=== PATIENT | female | born 1980 | race Two or more races ===

== ENCOUNTER 2023-08-07 08:36 | Outpatient (REF) | payer OTHER, SELFPAY ==
--- NOTE | 2023-08-07 08:42 | EMG_ITS ---
Chief complaint: History of lymphoma and chemotherapy, diabetes, bilateral hand pain and numbness Reason for referral: Evaluate for neuropathy versus Carpal Tunnel Syndrome Referred by: Vincenzo MENDOZA Procedure done: Bilateral upper extremities NCS/EMG Precautions and/or limitations: None The limb temperature was monitored continuously and remained between 32-36 degrees C during the performance of the NCS. Nerve Conduction Studies Anti Sensory Summary Table ?Stim Site NR Onset (ms) Norm Onset (ms) Peak (ms) Norm Peak (ms) O-P Amp (?V) Norm O-P Amp Site1 Site2 Delta-0 (ms) Dist (cm) Jose (m/s) Norm Jose (m/s) Left Median Anti Sensory (2nd Digit) Wrist ? 2.7 3.6 <3.6 40.1 >10 Wrist 2nd Digit 2.7 14.0 52 Right Median Anti Sensory (2nd Digit) Wrist ? 2.7 3.3 <3.6 38.0 >10 Wrist 2nd Digit 2.7 14.0 52 Right Radial Anti Sensory (Thumb) Forearm ? 1.6 2.0 <3.1 16.3 Forearm Thumb 1.6 0.0 Left Ulnar Anti Sensory (5th Digit) Wrist ? 2.6 3.4 <3.7 34.6 >15.0 Wrist 5th Digit 2.6 14.0 54 Right Ulnar Anti Sensory (5th Digit) Wrist ? 2.5 3.2 <3.7 13.6 >15.0 Wrist 5th Digit 2.5 14.0 56 Motor Summary Table ?Stim Site NR Onset (ms) Norm Onset (ms) O-P Amp (mV) Norm O-P Amp iAmp (mV) Amp (1st) (%) Site1 Site2 Delta-0 (ms) Dist (cm) Jose (m/s) Norm Jose (m/s) Left Median Motor (Abd Poll Brev) Wrist ? 3.8 <3.9 5.6 >4.5 6.9 100.0 Elbow Wrist 3.6 19.0 53 >45 Elbow ? 7.4 5.6 6.9 100.0 Right Median Motor (Abd Poll Brev) Wrist ? 3.7 <3.9 6.7 >4.5 8.1 100.0 Elbow Wrist 3.5 18.0 51 >45 Elbow ? 7.2 7.5 9.1 111.9 Left Ulnar Motor (Abd Dig Minimi) Wrist ? 3.0 <3.0 10.2 >5 13.3 100.0 B Elbow Wrist 2.6 15.0 58 >45 B Elbow ? 5.6 9.9 12.8 97.1 A Elbow B Elbow 1.5 10.0 67 >45 A Elbow ? 7.1 9.7 12.5 95.1 Right Ulnar Motor (Abd Dig Minimi) Wrist ? 3.0 <3.0 10.6 >5 12.0 100.0 B Elbow Wrist 2.6 16.0 62 >45 B Elbow ? 5.6 9.9 11.2 93.4 A Elbow B Elbow 1.3 10.0 77 >45 A Elbow ? 6.9 9.5 10.8 89.6 EMG ?Side Muscle Nerve Root Ins Act Fibs Psw Amp Dur Poly Recrt Int Pat Comment Right 1stDorInt Ulnar C8-T1 Nml Nml Nml Nml Nml 0 Nml Complete Right FlexCarRad Median C6-7 Nml Nml Nml Nml Nml 0 Nml Complete Right Biceps Musculocut C5-6 Nml Nml Nml Nml Nml 0 Nml Complete Right Triceps Radial C6-7-8 Nml Nml Nml Nml Nml 0 Nml Complete Right Deltoid Axillary C5-6 Nml Nml Nml Nml Nml 0 Nml Complete Left 1stDorInt Ulnar C8-T1 Nml Nml Nml Nml Nml 0 Nml Complete Left FlexCarRad Median C6-7 Nml Nml Nml Nml Nml 0 Nml Complete Left Biceps Musculocut C5-6 Nml Nml Nml Nml Nml 0 Nml Complete Left Triceps Radial C6-7-8 Nml Nml Nml Nml Nml 0 Nml Complete Left Deltoid Axillary C5-6 Nml Nml Nml Nml Nml 0 Nml Complete FINDINGS: All motor and sensory nerves tested showed normal latencies, amplitudes and conduction velocities. Concentric needle EMG was performed in selected muscles of the bilateral upper extremities. Study did not reveal signs of electric abnormalities as shown in the table below. IMPRESSION: 1. This is a normal study. 2. There is no electrodiagnostic evidence for median neuropathy, ulnar neuropathy, brachial plexopathy, or cervical radiculopathy. Thank you for your kind referral. Laureen Thao MD, ALEJANDRO Board Certified, [place] [employer] and [employer] (ABPMR) Board Certified, [place] Board [employer] Electrodiagnostic Medicine (ABEM) CODIN [id number] x2 MTDD
== END 2023-08-07 08:37 | disposition home or self-care (01) ==
LOC: HO.NEURO 08:36
PROVIDERS: PCP Internal Medicine Endocrinology, Diabetes & Metabolism; Visit Provider Physician Assistant
DX: G56.03 Carpal tunnel syndrome, bilateral upper limbs (principal)
CPT/HCPCS: 95886; 95911

== ENCOUNTER → 2023-08-07 08:42 | Outpatient (BNV) | payer OTHER, SELFPAY | PROVIDERS: PCP Internal Medicine Endocrinology, Diabetes & Metabolism; Visit Provider Physical Medicine & Rehabilitation | DX: M79.641 Pain in right hand (principal); M79.642 Pain in left hand; R20.0 Anesthesia of skin | CPT/HCPCS: 95886; 95911 ==

== ENCOUNTER 2023-11-06 08:50 | Outpatient (AMB) | payer OTHER, SELFPAY ==
--- NOTE | 2023-11-06 08:53 | MHC.OFFVIS ---
Intake Vital Signs 11/06/23 09:07 Height 5 ft 1 in Weight 169 lb 2 oz BMI 32.0 BP 118/84 Blood Pressure Location Lt brachial Position Sitting Respiration 16 Pulse 73 Pulse Source Pulse Oximeter Pulse Oximetry (%) 99 Oxygen Delivery Method Room Air Intake Visit Reasons: Back, Arthritis Pain - Confirmed Allergies No Known Allergies Allergy (Verified 11/06/23 09:04) HPI HPI Comments History of Present Illness Details Igor is a very pleasant 43-year-old female who presents the office today for evaluation management of her chronic diffuse all-over pain. Patient reports the pain started after she underwent chemotherapy to treat Hodgkin's lymphoma in 2019. Patient complains of pain ?from neck to ankles?. She states her worst pain is her right neck/shoulder and right lower back. Today would like to focus on lower back pain. Patient endorses pain to right lower back can worse with movement and tender to palpation. Endorses muscle spasm. Denies radiation of the pain down the extremities. Patient reports that she has a recent EMG and lumbar MRI at [facility], releases signed for record request. Patient completed physical therapy, she continues doing home exercise program as instructed on discharge from PT. She has a PYROGLAZER at home that helps her with the home exercise. Patient has exhausted medication attempts including muscle relaxers, gabapentin, Tylenol and prescription opioids. She is not able to take nonsteroidal anti-inflammatory medications due to previous gastric ulcer. Pain today is rated as a 4/10, aching, stabbing, pins and needles. Denies red flag symptoms. In terms of muscle damage condition is described as aching, spasming, hot, burning, shooting, dull, tiring, cramping, squeezing, numb, throbbing, stabbing, sharp, tingling, pins and needles Pain is negatively impacting patient's enjoyment of life, general activity, mood, normal work, recreational activities, relationships with people, sleep and walking. She has imaging coming up November 16 for her left breast, recently found a lump. She also has an upcoming echo and stress test in November as she has been having fluttering in her chest. She will be seeing rheumatology in [place] in the next couple of weeks, she saw Rheumatology at [facility] but requested her PCP refer her elsewhere. [facility] Medical History GERD (gastroesophageal reflux disease) Obstructive sleep apnea (adult) (pediatric) Lichen simplex chronicus Asthma Polyp of gallbladder Hyperlipidemia, unspecified Functional dyspepsia Hodgkin lymphoma Type 2 diabetes mellitus without complications Abnormal chest x-ray Vitamin D deficiency MRSA carrier Cervical disc herniation Vulvar itching Anxiety and depression Dysuria Low libido Overweight (BMI 25.0-29.9) Iron (Fe) deficiency anemia Surgical History Bariatric surgery status Review of Systems Const All systems reviewed & are unremarkable except as noted in HPI and below Physical Exam Vital Signs: Last Vital Signs Pulse 73 11/06/23 09:07 Resp 16 11/06/23 09:07 BP 118/84 11/06/23 09:07 Pulse Ox 99 11/06/23 09:07 Oxygen Delivery Method Room Air 11/06/23 09:07 BMI result Body Mass Index 32.0 General: awake, alert, oriented. Answers questions appropriately. Fully engaged in examination. Skin: warm, dry, intact HEENT: Normocephalic. Hearing intact. Cardiac: External chest normal in appearance. Respiratory: No cough, audible wheezing or stridor. Abdomen: without gross distension. MS: No obvious swelling or deformities. Able to transition from sit to stand unassisted. Ambulates with bilaterally normal heel strike and toe off SLR negative bilateral BLE strength 5/5 Facet loading positive on the right Tender to palpation midline lumbar vertebrae and lumbar paraspinal muscles Nontender over PSIS bilaterally Neurological: Oriented to person, place, time and situation. Thought process intact. No gait abnormalities appreciated. Psychiatric: Appropriate mood and affect. Good judgment and insight. Assessment & Plan Assessment & Plan (1) Chronic pain after cancer treatment: Code(s): G89.3 - Neoplasm related pain (acute) (chronic) (2) Lumbar spondylosis: Code(s): M47.816 - Spondylosis without myelopathy or radiculopathy, lumbar region (3) Cervical spondylosis: Code(s): M47.812 - Spondylosis without myelopathy or radiculopathy, cervical region Plan Patient presented to the office today for evaluation management of her diffuse all-over chronic pain post chemotherapy for cancer treatment. Patient has exhausted conservative therapy including PT, home exercise program, [id number] medications, muscle relaxers, oxycodone and gabapentin. Discontinue methocarbamol. Start tizanidine 2 mg p.o. 3 times daily, patient advised to cautions for use. Discussed options for treatment including diagnostic interventional testing, therapeutic steroid injections, peripheral nerve stimulation with Sprint, RFA and more permanent neuromodulation. Informational pamphlets provided. Schedule for diagnostic right L3-L4 dorsal ramus L5 MBBs with local anesthetic. Discussed Sprint versus RFA if patient gets good relief with diagnostic injections. Pamphlet for Nevro spinal cord stimulator also given to patient for review. All questions and concerns have been answered and patient agrees with the plan. Follow up after injections and sooner if needed. Medications: New tizanidine discontinue methocarbamol. Do not take with other muscle relaxants. No driving or alcohol use while taking this medication. 2 mg PO TID PRN 90 tabs 0RF muscle spasticity Coding Level of Care Code New Pt Level 4 (94314) Diagnoses Chronic pain after cancer treatment G89.3 Lumbar spondylosis M47.816 Cervical spondylosis M47.812
[2023-11-06 09:07] VITALS: BP 118/84; PULSE 73; RESP 16; O2SAT 99; BMI 32.0
== END 2023-11-06 09:52 | disposition home or self-care (01) ==
PROVIDERS: PCP Internal Medicine Endocrinology, Diabetes & Metabolism; Visit Provider Registered Nurse Emergency
DX: G89.3 Neoplasm related pain (acute) (chronic) (principal); M47.816 Spondylosis without myelopathy or radiculopathy, lumbar region; M47.812 Spondylosis without myelopathy or radiculopathy, cervical region
CPT/HCPCS: 99204

== ENCOUNTER → 2023-11-06 08:50 | Outpatient (BNVA) | payer OTHER, SELFPAY | PROVIDERS: PCP Internal Medicine Endocrinology, Diabetes & Metabolism; Visit Provider Registered Nurse Emergency | DX: M47.816 Spondylosis without myelopathy or radiculopathy, lumbar region (principal); M47.812 Spondylosis without myelopathy or radiculopathy, cervical region; G89.3 Neoplasm related pain (acute) (chronic) | CPT/HCPCS: 99202 ==

== ENCOUNTER 2023-12-22 06:44 | Outpatient (REF) | payer OTHER, SELFPAY ==
--- NOTE | ~2023-12-22 | FL_ITS ---
EXAMINATION: XR FLUOROSCOPY WITH IMAGES CLINICAL INFORMATION: Lumbar spondylosis, without myelopathy or radiculopathy. COMPARISON: None available. TECHNIQUE: Fluoroscopy Supervised By: Dr. Lisette López. Fluoroscopy Time: 0.3 minutes. Cumulative Dose: 4.19 mGy. DAP: 0.0729 mGym2. Images: 3. FINDINGS: The submitted images show injection needles and injected contrast in the vicinity of the right L3-L4, L4-L5 and L5-S1 neural foramina. FL/FL guidance in treatment room IMPRESSION: Intraoperative fluoroscopic guidance is provided during lumbar spine pain management procedure. Please see the patient's Operative Report for for full procedural details.
== END 2023-12-22 06:45 | disposition home or self-care (01) ==
LOC: CF 06:44
PROVIDERS: Visit Provider Anesthesiology
DX: M47.816 Spondylosis without myelopathy or radiculopathy, lumbar region (principal); M47.812 Spondylosis without myelopathy or radiculopathy, cervical region; G89.3 Neoplasm related pain (acute) (chronic)
CPT/HCPCS: 64493; 64494; J2795; Q9967

== ENCOUNTER 2023-12-22 14:33 | Outpatient (AMB) | payer OTHER, SELFPAY ==
[2023-12-22 14:40] VITALS: BP 126/78; BP 130/70; PULSE 66; PULSE 76; RESP 16; O2SAT 100; BMI 32.0
--- NOTE | 2023-12-22 14:40 | A.OFFVIS_ITS ---
Intake Vital Signs 12/22/23 14:40 12/22/23 14:40 Height 5 ft 1 in 5 ft 1 in Weight 169 lb 2 oz 169 lb 2 oz BMI 32.0 32.0 BP 126/78 130/70 Blood Pressure Location Lt brachial Lt brachial Position Sitting Sitting Respiration 16 16 Pulse 76 66 Pulse Source Pulse Oximeter Pulse Oximeter Pulse Oximetry (%) 100 100 Oxygen Delivery Method Room Air Room Air Comment pre-op post-op Intake Visit Reasons: RIGHT DIAGNOSTIC L3, L4, DRL5 MBB Allergies No Known Allergies Allergy (Verified 12/22/23 14:41) [facility] Medical History GERD (gastroesophageal reflux disease) Obstructive sleep apnea (adult) (pediatric) Lichen simplex chronicus Asthma Polyp of gallbladder Hyperlipidemia, unspecified Functional dyspepsia Hodgkin lymphoma Type 2 diabetes mellitus without complications Abnormal chest x-ray Vitamin D deficiency MRSA carrier Cervical disc herniation Vulvar itching Anxiety and depression Dysuria Low libido Overweight (BMI 25.0-29.9) Iron (Fe) deficiency anemia Surgical History Bariatric surgery status Physical Exam Vital Signs: Last Vital Signs Pulse 66 12/22/23 14:40 Resp 16 12/22/23 14:40 BP 130/70 12/22/23 14:40 Pulse Ox 100 12/22/23 14:40 Oxygen Delivery Method Room Air 12/22/23 14:40 BMI result Body Mass Index 32.0 Assessment & Plan Assessment & Plan (1) Chronic pain after cancer treatment: Code(s): G89.3 - Neoplasm related pain (acute) (chronic) (2) Lumbar spondylosis: Code(s): M47.816 - Spondylosis without myelopathy or radiculopathy, lumbar region (3) Cervical spondylosis: Code(s): M47.812 - Spondylosis without myelopathy or radiculopathy, cervical region Plan: Diagnostic medial branch block L3,L4 dorsal ramus L5 on the right? ? ?Informed consent was explained to the patient. All questions were explained and? answered.? The patient was taken inside the operating room where she was positioned prone on the operating table. Time-out was performed delineating correct site, side, the nature of the procedure, patient's allergy, . All operating room staff was participating in OR time-out procedure. ? ? The lower back was prepped with ChloraPrep and draped with sterile towels.? C- arm was brought over the operating field and sq picture of L4-, L5 vertebra and S1 AREA were delineated on the screen.? Point of interest were delineated as confluence of superior articular process of L4 and L5 vertebra on the right with corresponding transverse processes as well as confluence of the sacral alae on the right with superior articular process of S1.? The projection of the point of interest to the skin were injected with the small amount of local anesthetic lidocaine 2% 1-1.5 cc.? After that 22 gauge 3.5 inch spinal needle was driven sequentially to the points of interest in tunnel vision fashion. After needles gently contacted the bone at the point of interests the needle was injected with small amount of the contrast.? The injection of the contrast did not demonstrate any intravascular or intrathecal spread of the contrast.? After that injection of the? ropivacaine 0.5%-1cc was performed at each needle location.??after that the needles were removed and Bandaids were applied. ? Upon completion of the injections? needle was? removed and sterile Band-Aids were applied.? The patient tolerated procedure very well. Plan Patient presented to the office today for evaluation management of her diffuse all-over chronic pain post chemotherapy for cancer treatment. Patient has exhausted conservative therapy including PT, home exercise program, nmnq-yxn-eoxxldq medications, muscle relaxers, oxycodone and gabapentin. Discontinue methocarbamol. Start tizanidine 2 mg p.o. 3 times daily, patient advised to cautions for use. Discussed options for treatment including diagnostic interventional testing, therapeutic steroid injections, peripheral nerve stimulation with Sprint, RFA and more permanent neuromodulation. Informational pamphlets provided. Schedule for diagnostic right L3-L4 dorsal ramus L5 MBBs with local anesthetic. Discussed Sprint versus RFA if patient gets good relief with diagnostic injections. Pamphlet for Nevro spinal cord stimulator also given to patient for review. All questions and concerns have been answered and patient agrees with the plan. Follow up after injections and sooner if needed. Orders: Orders FL guidance in treatment room Today M47.816 - Spondylosis without myelopathy or radiculopathy, lumbar region Coding Level of Care Code Procedure Only Diagnoses Chronic pain after cancer treatment G89.3 Lumbar spondylosis M47.816 Cervical spondylosis M47.812
== END 2023-12-22 15:09 | disposition home or self-care (01) ==
LOC: HO.PMCPRC 14:33
PROVIDERS: PCP Internal Medicine Endocrinology, Diabetes & Metabolism; Visit Provider Anesthesiology
DX: M47.816 Spondylosis without myelopathy or radiculopathy, lumbar region (principal)
CPT/HCPCS: 64493; 64494

== ENCOUNTER 2023-12-25 11:02 | Outpatient (AMB) | payer OTHER, SELFPAY ==
--- NOTE | 2023-12-25 11:16 | A.OFFVIS_ITS ---
Intake Vital Signs 12/25/23 11:17 Height 5 ft 1 in Weight 171 lb 8 oz BMI 32.4 BP 142/70 H Blood Pressure Location Lt brachial Position Sitting Respiration 18 Pulse 74 Pulse Source Pulse Oximeter Pulse Oximetry (%) 97 Oxygen Delivery Method Room Air Intake Visit Reasons: RIGHT DIAGNOSTIC L3, L4, DRL5 MBB Allergies No Known Allergies Allergy (Verified 12/25/23 11:18) HPI HPI Comments History of Present Illness Details Patient presents back to the office today for follow-up, status post right diagnostic L3-L4 DR L5 MBB with local anesthetic. She reports approximately 70% pain relief after the injection, with improvement in functional mobility. She states she is able to do housework at home that normally she would not be able to do including washing dishes. Since the procedure she reports worsening of her left sided lower back pain. She would like to attempt diagnostic injections for that side and hopefully proceed with bilateral sprint PNS She has been taking the tizanidine with good effect, she would like to continue on this medication Intake visit: Igor is a very pleasant 43-year-old female who presents the office today for evaluation management of her chronic diffuse all-over pain. Patient reports the pain started after she underwent chemotherapy to treat Hodgkin's lymphoma in 2019. Patient complains of pain ?from neck to ankles?. She states her worst pain is her right neck/shoulder and right lower back. Today would like to focus on lower back pain. Patient endorses pain to right lower back can worse with movement and tender to palpation. Endorses muscle spasm. Denies radiation of the pain down the extremities. Patient reports that she has a recent EMG and lumbar MRI at [facility] signed for record request. Patient completed physical therapy, she continues doing home exercise program as instructed on discharge from PT. She has a MEAT STRINGER at home that helps her with the home exercise. Patient has exhausted medication attempts including muscle relaxers, gabapentin, Tylenol and prescription opioids. She is not able to take nonsteroidal anti- inflammatory medications due to previous gastric ulcer. Pain today is rated as a 4/10, aching, stabbing, pins and needles. Denies red flag symptoms. In terms of muscle damage condition is described as aching, spasming, hot, burning, shooting, dull, tiring, cramping, squeezing, numb, throbbing, stabbing, sharp, tingling, pins and needles Pain is negatively impacting patient's enjoyment of life, general activity, mood, normal work, recreational activities, relationships with people, sleep and walking. She has imaging coming up November 16 for her left breast, recently found a lump. She also has an upcoming echo and stress test in November as she has been having fluttering in her chest. She will be seeing rheumatology in [place] in the next couple of weeks, she saw Rheumatology at [place] but requested her PCP refer her elsewhere. [facility] Medical History GERD (gastroesophageal reflux disease) Obstructive sleep apnea (adult) (pediatric) Lichen simplex chronicus Asthma Polyp of gallbladder Hyperlipidemia, unspecified Functional dyspepsia Hodgkin lymphoma Type 2 diabetes mellitus without complications Abnormal chest x-ray Vitamin D deficiency MRSA carrier Cervical disc herniation Vulvar itching Anxiety and depression Dysuria Low libido Overweight (BMI 25.0-29.9) Iron (Fe) deficiency anemia Surgical History Bariatric surgery status Review of Systems Const All systems reviewed & are unremarkable except as noted in HPI and below Physical Exam Vital Signs: Last Vital Signs Pulse 74 12/25/23 11:17 Resp 18 12/25/23 11:17 BP 142/70 H 12/25/23 11:17 Pulse Ox 97 12/25/23 11:17 Oxygen Delivery Method Room Air 12/25/23 11:17 BMI result Body Mass Index 32.4 General: awake, alert, oriented. Answers questions appropriately. Fully engaged in examination. Skin: warm, dry, intact HEENT: Normocephalic. Hearing intact. Cardiac: External chest normal in appearance. Respiratory: No cough, audible wheezing or stridor. Abdomen: without gross distension. MS: No obvious swelling or deformities. Able to transition from sit to stand unassisted. Ambulates with bilaterally normal heel strike and toe off SLR negative bilateral BLE strength 5/5 Tender to palpation midline lumbar vertebrae and lumbar paraspinal muscles Neurological: Oriented to person, place, time and situation. Thought process intact. No gait abnormalities appreciated. Psychiatric: Appropriate mood and affect. Good judgment and insight. Assessment & Plan Assessment & Plan (1) Chronic pain after cancer treatment: Code(s): G89.3 - Neoplasm related pain (acute) (chronic) (2) Lumbar spondylosis: Code(s): M47.816 - Spondylosis without myelopathy or radiculopathy, lumbar region (3) Cervical spondylosis: Code(s): M47.812 - Spondylosis without myelopathy or radiculopathy, cervical region Plan Patient presented to the office today for follow-up status post right L3-L4 DR L5 MBBs Patient reports 70% pain relief with improvement in functional mobility. She is reporting that the pain in her left lower back is more noticeable since she had the injections on the right side. Patient has exhausted conservative therapy including PT, home exercise program, cpfr-dyc-ayrulck medications, muscle relaxers, oxycodone and gabapentin. Continue with Tizanidine 2 mg p.o. 3 times daily, patient advised to cautions for use. Discussed options for treatment including diagnostic interventional testing, therapeutic steroid injections, peripheral nerve stimulation with Sprint, RFA and more permanent neuromodulation. Informational pamphlets provided. Schedule for diagnostic left L3-L4 dorsal ramus L5 MBBs with local anesthetic. Plan for bilateral Sprint if patient report good relief with diagnostic injections. All questions and concerns have been answered and patient agrees with the plan. Follow up after injections and sooner if needed. Medications: Changed From tizanidine discontinue methocarbamol. Do not take with other muscle relaxants. No driving or alcohol use while taking this medication. 2 mg PO TID PRN 90 tabs 8RF muscle spasticity To tizanidine Do not take with other muscle relaxants. No driving or alcohol use while taking this medication. 2 mg PO TID PRN 90 tabs 8RF muscle spasticity Coding Level of Care Code Est Pt Level 4 (14407) Diagnoses Chronic pain after cancer treatment G89.3 Lumbar spondylosis M47.816 Cervical spondylosis M47.812
[2023-12-25 11:17] VITALS: BP 142/70; PULSE 74; RESP 18; O2SAT 97; BMI 32.4
== END 2023-12-25 11:22 | disposition home or self-care (01) ==
PROVIDERS: PCP Internal Medicine Endocrinology, Diabetes & Metabolism; Visit Provider Registered Nurse Emergency
DX: G89.3 Neoplasm related pain (acute) (chronic) (principal); M47.816 Spondylosis without myelopathy or radiculopathy, lumbar region; M47.812 Spondylosis without myelopathy or radiculopathy, cervical region
CPT/HCPCS: 99214

== ENCOUNTER → 2023-12-25 11:02 | Outpatient (BNVA) | payer OTHER, SELFPAY | PROVIDERS: PCP Internal Medicine Endocrinology, Diabetes & Metabolism; Visit Provider Registered Nurse Emergency | DX: G89.3 Neoplasm related pain (acute) (chronic) (principal); M47.812 Spondylosis without myelopathy or radiculopathy, cervical region; M47.816 Spondylosis without myelopathy or radiculopathy, lumbar region | CPT/HCPCS: 99212 ==

== ENCOUNTER 2024-07-13 09:29 | Outpatient (AMB) | payer OTHER, SELFPAY ==
[2024-07-13 09:37] VITALS: BP 134/69; PULSE 75; O2SAT 99; BMI 33.8
--- NOTE | 2024-07-13 09:37 | A.OFFVIS_ITS ---
Vital Signs 07/13/24 09:37 Height 5 ft 1 in Weight 179 lb BMI 33.8 BP 134/69 Blood Pressure Location Lt brachial Position Sitting Pulse 75 Pulse Source Pulse Oximeter Pulse Oximetry (%) 99 Oxygen Delivery Method Room Air Intake Visit Reasons: Back Pain Allergies No Known Allergies Allergy (Verified 07/13/24 09:38) HPI Comments Details: Patient presents back to the office today for follow-up bilateral lower back pain At last visit she endorse 70% pain relief after right-sided medial branch blocks, booking order for left side was placed but as of today no approval has been received from the insurance company. She was then lost to follow-up. Now having bilateral lower back pain, rated today as 4/10 She has been taking oxycodone, gabapentin, Tylenol, duloxetine, tizanidine and using lidocaine patches all without improvement of her pain. She completed physical therapy and continues with home exercise program but pain persists Prior: Patient presents back to the office today for follow-up, status post right diagnostic L3-L4 DR L5 MBB with local anesthetic. She reports approximately 70% pain relief after the injection, with improvement in functional mobility. She states she is able to do housework at home that normally she would not be able to do including washing dishes. Since the procedure she reports worsening of her left sided lower back pain. She would like to attempt diagnostic injections for that side and hopefully proceed with bilateral sprint PNS She has been taking the tizanidine with good effect, she would like to continue on this medication Intake visit: Igor is a very pleasant 43-year-old female who presents the office today for evaluation management of her chronic diffuse all-over pain. Patient reports the pain started after she underwent chemotherapy to treat Hodgkin's lymphoma in 2019. Patient complains of pain ?from neck to ankles?. She states her worst pain is her right neck/shoulder and right lower back. Today would like to focus on lower back pain. Patient endorses pain to right lower back can worse with movement and tender to palpation. Endorses muscle spasm. Denies radiation of the pain down the extremities. Patient reports that she has a recent EMG and lumbar MRI at [facility] signed for record request. Patient completed physical therapy, she continues doing home exercise program as instructed on discharge from PT. She has a [employer]EL[employer] at home that helps her with the home exercise. Patient has exhausted medication attempts including muscle relaxers, gabapentin, Tylenol and prescription opioids. She is not able to take nonsteroidal anti- inflammatory medications due to previous gastric ulcer. Pain today is rated as a 4/10, aching, stabbing, pins and needles. Denies red flag symptoms. In terms of muscle damage condition is described as aching, spasming, hot, burning, shooting, dull, tiring, cramping, squeezing, numb, throbbing, stabbing, sharp, tingling, pins and needles Pain is negatively impacting patient's enjoyment of life, general activity, mood, normal work, recreational activities, relationships with people, sleep and walking. She has imaging coming up November 16 for her left breast, recently found a lump. She also has an upcoming echo and stress test in November as she has been having fluttering in her chest. She will be seeing rheumatology in [place] in the next couple of weeks, she saw Rheumatology at [place] but requested her PCP refer her elsewhere. [facility] Medical History GERD (gastroesophageal reflux disease) Obstructive sleep apnea (adult) (pediatric) Lichen simplex chronicus Asthma Polyp of gallbladder Hyperlipidemia, unspecified Functional dyspepsia Hodgkin lymphoma Type 2 diabetes mellitus without complications Abnormal chest x-ray Vitamin D deficiency MRSA carrier Cervical disc herniation Vulvar itching Anxiety and depression Dysuria Low libido Overweight (BMI 25.0-29.9) Iron (Fe) deficiency anemia Surgical History Bariatric surgery status Review of Systems Const All systems reviewed & are unremarkable except as noted in HPI and below Physical Exam Vital Signs: Last Vital Signs Pulse 75 07/13/24 09:37 BP 134/69 07/13/24 09:37 Pulse Ox 99 07/13/24 09:37 Oxygen Delivery Method Room Air 07/13/24 09:37 BMI result Body Mass Index 33.8 General: awake, alert, oriented. Answers questions appropriately. Fully engaged in examination. Skin: warm, dry, intact HEENT: Normocephalic. Hearing intact. Cardiac: External chest normal in appearance. Respiratory: No cough, audible wheezing or stridor. Abdomen: without gross distension. MS: No obvious swelling or deformities. Able to transition from sit to stand unassisted. Ambulates with bilaterally normal heel strike and toe off SLR negative bilateral BLE strength 5/5 Tender to palpation midline lumbar vertebrae and lumbar paraspinal muscles Facet loading positive Neurological: Oriented to person, place, time and situation. Thought process intact. No gait abnormalities appreciated. Psychiatric: Appropriate mood and affect. Good judgment and insight. Assessment & Plan Assessment & Plan (1) Chronic pain after cancer treatment: Code(s): G89.3 - Neoplasm related pain (acute) (chronic) Category: Medical (2) Lumbar spondylosis: Code(s): M47.816 - Spondylosis without myelopathy or radiculopathy, lumbar region Category: Medical (3) Cervical spondylosis: Code(s): M47.812 - Spondylosis without myelopathy or radiculopathy, cervical region Category: Medical Plan Patient presented to the office today for follow-up bilateral lower back pain History, physical exam and provocative testing consistent with lumbar spondylosis Patient has exhausted conservative therapy including PT, home exercise program, [id number] medications, muscle relaxers, oxycodone and gabapentin. Continue with Tizanidine 2 mg p.o. 3 times daily, patient advised to cautions for use. Discussed options for treatment including diagnostic interventional testing, therapeutic steroid injections, peripheral nerve stimulation with Sprint, RFA a nd more permanent neuromodulation. Informational pamphlets provided. Schedule for bilateral diagnostic L3-L4 dorsal ramus L5 MBBs with local anesthetic. Plan for bilateral Sprint if patient report good relief with diagnostic injections. All questions and concerns have been answered and patient agrees with the plan. Follow up after injections and sooner if needed. Coding Level of Care Code Est Pt Level 3 (55341) Complex EM visit Add On G2211 Diagnoses Chronic pain after cancer treatment G89.3 Lumbar spondylosis M47.816 Cervical spondylosis M47.812
== END 2024-07-13 09:56 | disposition home or self-care (01) ==
PROVIDERS: PCP Internal Medicine Endocrinology, Diabetes & Metabolism; Visit Provider Registered Nurse Emergency
DX: G89.3 Neoplasm related pain (acute) (chronic) (principal); M47.816 Spondylosis without myelopathy or radiculopathy, lumbar region; M47.812 Spondylosis without myelopathy or radiculopathy, cervical region
CPT/HCPCS: 99213; G2211

== ENCOUNTER → 2024-07-13 09:29 | Outpatient (BNVA) | payer OTHER, SELFPAY | PROVIDERS: PCP Internal Medicine Endocrinology, Diabetes & Metabolism; Visit Provider Registered Nurse Emergency | DX: M47.816 Spondylosis without myelopathy or radiculopathy, lumbar region (principal); M47.812 Spondylosis without myelopathy or radiculopathy, cervical region; G89.3 Neoplasm related pain (acute) (chronic); Z92.21 Personal history of antineoplastic chemotherapy; Z85.71 Personal history of Hodgkin lymphoma | CPT/HCPCS: 99212 ==

== ENCOUNTER 2024-11-01 06:08 | Outpatient (REF) | payer OTHER, SELFPAY ==
--- NOTE | ~2024-11-01 | FL_ITS ---
EXAMINATION: FL GUIDANCE ONLY HISTORY: M47.816 - Spondylosis without myelopathy or radiculopathy, lumbar region COMPARISON: None available. TECHNIQUE: Fluoroscopy time: 0.7. Cumulative Dose: 9.70 mGy. DAP: 0.156 uGy-m2 (microgray-meter squared). Images: 12. FINDINGS: Images demonstrate needles and contrast in the regions of the bilateral L3-4, L4-5, L5-S1 facet joints. FL/FL guidance in treatment room IMPRESSION: Fluoroscopy during procedure. Please see procedure report for additional information. Electronically signed by: Eugenio Carroll MD 11/02/2024 07:28 AM KEVIN
--- OUTSIDE RECORDS SUMMARY | 2024-11-01 06:10 | XMS_ITS | Referral Summary ---
Author Organization [facility] Address [address] [place] [address] Care Team Providers [employer] Software Architect Name Role Phone Fabio Moe Primary Care Provider [phone] Allergies No known active allergies Medications acetaminophen (TYLENOL) 500 mg tablet SMARTSI Tablet(s) By Mouth Every 6 Hours PRN Active albuterol sulfate 90 mcg/actuation aerosol powdr breath activated Inhale 2 puffs by mouth. Active benzonatate (TESSALON) 100 mg capsule SMARTSI Capsule(s) By Mouth 3 Times Daily PRN 4 Active cholecalciferol 25 mcg (1,000 unit) tablet SMARTSI Tablet(s) By Mouth Daily 4 Active ergocalciferol (VITAMIN D2) 1,250 mcg (50,000 unit) capsule SMARTSI Capsule(s) By Mouth Once a Week Active ferrous sulfate 325 mg (65 mg iron) tablet SMARTSI Tablet(s) By Mouth Twice Daily 4 Active fluconazole (DIFLUCAN) 150 mg tablet TAKE 1 TABLET BY MOUTH ONCE WEEKLY FOR 6 MONTHS 4 Active Advair Diskus 250-50 mcg/dose inhaler SMARTSI Puff(s) By Mouth Twice Daily 4 Active fluticasone propionate (FLONASE) 50 mcg/actuation nasal spray SMARTSI [place](s) Both Nares Daily Active gabapentin (NEURONTIN) 400 mg capsule SMARTSI Capsule(s) By Mouth 3 Times Daily Active lidocaine (LIDODERM) 5% patch SMARTSI Patch(s) Topical Daily 4 Active loratadine (CLARITIN) 10 mg tablet SMARTSI Tablet(s) By Mouth Daily 4 Active methocarbamoL (ROBAXIN) 500 mg tablet SMARTSI Tablet(s) By Mouth 3 Times Daily PRN 3 Active montelukast (SINGULAIR) 10 mg tablet Take 10 mg by mouth. Active nystatin-triamc inolone (MYCOLOG II) ointment SMARTSIG:Sparin gly Topical Daily PRN 3 Active omeprazole (PriLOSEC) 20 mg capsule SMARTSI Capsule(s) By Mouth Twice Daily 4 Active ondansetron (ZOFRAN) 4 mg tablet Take 4 mg by mouth every 6 hours as needed. 3 Active oxyCODONE IR (ROXICODONE) 5 mg tablet SMARTSI Tablet(s) By Mouth Twice Daily PRN 4 Active sertraline (ZOLOFT) 100 mg tablet SMARTSI Tablet(s) By Mouth Daily 4 Active tiZANidine (ZANAFLEX) 2 mg tablet PLEASE SEE ATTACHED FOR DETAILED DIRECTIONS 4 Active traZODone (DESYREL) 50 mg tablet SMARTSI-3 Tablet(s) By Mouth Every Night PRN 4 Active Active Problems Problem Noted Date Diagnosed Date Fibromyalgia 02/02/2024 Assessment & Plan (02/02/2024 1:24 PM EDT): Patient with diffuse body pain - endorses pain at shoulders, knees, lower back, elbows, ankles. Endorses pain both with and without activity. Denies discrete joint swelling. Endorses AM stiffness in shoulders and back but not in small joints. Reports pain worse with cold weather. Currently on oxycodone 5mg every day, meloxicam, gabapentin, sertraline. Has tried PT in the past and states that while it does help, will have return of pain. Reports onset of symptoms with chemotherapy for the Hodgkin's lymphoma. On exam, patient without synovitis however with b/l anterior shoulder joint TTP, b/l trapezius TTP, paraspinal TTP, and chest wall TTP. No bony abnormalities noted on exam. Patient's presentation not suggestive of inflammatory arthritis. Most notably, patient reports absolutely no change in pain level despite steroid therapy. Patient on prednisone for bronchitis and reports no difference in pain while on vs off prednisone vs tapering down. Presentation more c/w fibromyalgia. Of note, patient previously with PATRICK on CPAP however had stopped following sleeve gastrectomy. Given how PATRICK can affect pain pathways, advised patient to resume CPAP and see if improvement. Patient already on NSAIDs, gabapentin, SSRI which is what would be used for fibromyalgia. Could also be chemotherapy induced arthralgias which patient reports was previously suggested by her oncologist. At this time, no autoimmune/systemic inflammatory process contributing to patient's diffuse body pain. No further workup indicated. Advised to follow up with PCP. Trochanteric bursitis of both hips 02/02/2024 Assessment & Plan (02/02/2024 1:24 PM EDT): Patient with significant TTP at b/l greater trochanters. CHARLES/FADIR neg b/l. Discussed risks and benefits of steroid injections with patient. Patient agreeable to injection. Given patient's report of increased pain on L greater trochanter, injected with 60mg of depomedrol. Initially had discussed also injecting the R greater trochanter bursa but patient deferred. Patient tolerated procedure without issue. Social History Tobacco Use Types Packs/Day Years Used Date Smoking Tobacco: Never Passive Smoke Exposure: Never Smokeless Tobacco: Never Tobacco Cessation:Counseling Given: Not Answered Alcohol Use Standard Drinks/Week Comments Not Currently 0 (1 standard drink = 0.6 oz pur e alcohol) Comments Unknown Sex and Gender Information Value Date Recorded Sex Assigned at Female 09/24/2023 1:27 PM EST Legal Sex Female 1:23 PM EST Gender Identity Female 09/24/2023 1:27 PM EST Sexual Orientation Straight 12/10/2023 10 :55 AM EST Last Filed Vital Signs Vital Sign Reading Time Taken Comments Blood Pressure 132/84 02/02/2024 9:24 AM EDT Pulse 78 02/02/2024 9:24 AM EDT Temperature 37.1 ??C (98.8 ??F) 02/02/2024 9:24 AM ED T Respiratory Rate - - Oxygen Saturation - - Inhaled Oxygen Concentration - - Weight - - Height - - Body Mass Index - - Plan of Treatment Not on file Insurance [employer] Care Teams Net Software Architect Relationship Specialty Start Date End Date Fabio Moe PCP - General Internal Medicine 01/18/24
--- OUTSIDE RECORDS SUMMARY | 2024-11-01 06:10 | XMS_ITS | Clinical Summary ---
Author Organization [facility] Address [address] [place] [address] Care Team Providers Care Post Splitter Name Role Phone Fabio Moe Primary Care Provider [phone] Allergies No known active allergies Medications Medication Sig Dispensed Refills Start Date End Date Status albuterol sulfate 90 mcg/actuation aerosol powdr breath activated Inhale 2 puffs into the lungs continuous prn. Active ergocalciferol (VITAMIN D-2) 1,250 mcg (50,000 unit) capsule Take 1 capsule (50,000 Units total) by mouth once a week. 4 Active fluticasone furoate (ARNUITY ELLIPTA) 200 mcg/actuation blister with device inhaler Inhale 220 mcg into the lungs 2 (two) times a day. Active omeprazole (PRILOSEC) 20 mg tablet,delayed release (DR/EC) Take 20 mg by mouth daily. Active ondansetron (ZOFRAN) 4 mg tablet Take 1 tablet (4 mg total) by mouth every 6 hours as needed. 3 Active sertraline (ZOLOFT) 100 mg tablet TAKE 1 TABLET BY MOUTH EVERY DAY 3 Active montelukast (SINGULAIR) 10 mg tablet TAKE 1 TABLET BY MOUTH EVERYDAY AT BEDTIME 90 tablet 1 4 Active acetaminophen (TYLENOL) 500 mg tablet TAKE 1 TABLET (500 MG TOTAL) BY MOUTH EVERY 6 (SIX) HOURS NEEDED FOR PAIN. 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 Do not crush, chew, or split. Max Daily Amount: 30 mg 60 tablet 5 Active Advair HFA 230-21 mcg/actuation inhaler TAKE 1 PUFF BY MOUTH TWICE A DAY 36 each 1 5 Active oxyCODONE (ROXICODONE) 5 mg immediate release tabletIndication s:Intractable pain Take 1 tablet (5 mg total) by mouth every 8 (eight) hours if needed for severe pain. Max Daily Amount: 15 mg 90 tablet 5 Active fluticasone propionate (FLONASE) 50 mcg/actuation nasal spray Administer 2 sprays into each nostril 1 (one) time each day. 48 mL 1 5 Active fluticasone propionate (FLONASE) 50 mcg/actuation nasal spray spray/apply 2 sprays in each nostril continuous prn. 10/31/19 25 Discontinued gabapentin (NEURONTIN) 400 mg capsule TAKE 1 CAPSULE BY MOUTH THREE TIMES A DAY 4 10/10/19 25 Discontinued oxyCODONE (ROXICODONE) 5 mg immediate release tabletIndication s:Intractable pain Take 1 tablet (5 mg total) by mouth every 8 (eight) hours if needed for severe pain. Max Daily Amount: 15 mg 90 tablet 4 10/13/19 25 Discontinued(Reo rder) gabapentin (NEURONTIN) 400 mg capsule TAKE 1 CAPSULE BY MOUTH THREE TIMES A DAY 90 capsule 2 5 10/12/19 25 Discontinued Active Problems Problem Noted Date Diagnosed Date Trochanteric bursitis of both hips 02/02/2024 Overview (08/16/2024): Last Assessment & Plan: Patient with significant TTP at b/l greater trochanters. CHARLES/FADIR neg b/l. Discussed risks and benefits of steroid injections with patient. Patient agreeable to injection. Given patient's report of increased pain on L greater trochanter, injected with 60mg of depomedrol. Initially had discussed also injecting the R greater trochanter bursa but patient deferred. Patient tolerated procedure without issue. Fibromyalgia 02/02/2024 Mild ascending aorta dilation 12/28/2023 Mass of upper outer quadrant of left breast 10/06 Overview (05/18/2024): Last Assessment & Plan: Will obtain diagnostic imaging and refer to breast clinic if normal. Recurrent vaginitis 10/26/2023 Overview (08/16/2024): Last Assessment & Plan: Will treat with 6 mos weekly fluconazole. If not helpful, will consider using around time of usual menses as seems to be hormonally mediate. Intractable pain 09/01/2023 Palpitations 10/28/2022 TIA (transient ischemic attack) 10/28/2022 Overweight (BMI 25.0-29.9) 06/13/2022 Acute nonintractable headache 09/05/2021 Weight loss 09/05/2021 History of laparoscopic partial gastrectomy 11/2020 Anxiety and depression 11/22/2020 Neck pain 02/10/2020 Cervical disc disease 12/09/2019 Cervical disc herniation 12/09/2019 Overview (08/16/2024): Right, C6-C7, MRI 09/27/2020 Vitamin D deficiency 07/20/2019 Cellulitis 04/22/2019 Abnormal chest x-ray 03/03/2019 Overview (08/16/2024): 02/20 - recommended follow up chest CT Cough 03/02/2019 Acute non-recurrent frontal sinusitis 02/24/2019 Inguinal adenopathy 12/31/2018 MRSA carrier 12/31/2018 Abscess, gluteal, left 12/24/2018 Memory loss 12/16/2018 Other fatigue 12/16/2018 Other insomnia 12/16/2018 Anemia in neoplastic disease 10/27/2018 Iron deficiency anemia due to chronic blood loss 10/27/2018 Nausea 10/27/2018 Pain of upper abdomen 10/27/2018 Diabetes mellitus type 2, uncomplicated 10/25/19 19 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 Stage III disease, bone marrow testing negative for lymphoma. ersistent symptoms started in June 06 lymphadenopathy was noticed in August 2018, in the right axilla and right side of neck. Initial biopsy on 09/16/2018, of the right axillary lymph node showed polymorphous lymphoid cell population. She had excisional biopsy of the right axillary lymph node on 09/27/2018, That showed LYMPHOMA. Staging evaluation with CAT scan of chest showed right axillary, right supraclavicular, right mediastinal and hilar lymphadenopathy. PET CT scan showed stage III, non-bulky disease with disease in mediastinal area and retroperitoneum. Bone marrow biopsy, was negative for disease. Patient was started on ABVD regimen in November 06.after 4 treatments, she had a PET/CT scan, that showed excellent response, near complete resolution of disease, but there was a new left inguinal lymph node. This lymph node was tender and it improved with antibiotic therapy. Patient has had issues with recurrent pharyngitis, cough, hidradenitis, requiring several courses of antibiotics during therapy. She also has anemia, has not required transfusions. Patient will complete cycle #6 of treatment today A-B. LYMPH NODES, RIGHT AXILLA-EXCISION: - CLASSICAL HODGKIN LYMPHOMA. - NO FLOW IMMUNOPHENOTYPIC EVIDENCE OF A LYMPHOPROLIFERATIVE DISORDER. SEE COMMENT. COMMENT: This case was sent in consultation to Dr. Dexter Lind at [facility], [place], [place]. See end of report for his interpretation. MICROSCOPIC DESCRIPTION: Sections show lymph node conglomerates (up to 7.0 cm per gross description) with effaced architecture by a vaguely nodular process. The ann-marie capsule is thickened, and there is extranodal extension into fibroadipose tissue. The vague nodules consist of mostly small, slightly irregular lymphocytes. Surrounding the nodules is an extensive infiltrate of mixed histiocytes, large abnormal cells, and small lymphocytes. The large abnormal cells are numerous and have moderate to abundant amounts of pale eosinophilic cytoplasm, irregularly lobated nuclei, vesicular chromatin, and prominent nucleoli. Some are binucleated and some show mummification. One section shows a focus of tumor-type coagulative necrosis. IMMUNOHISTOCHEMISTRY: Immunohistochemistry shows that the large abnormal cells are positive for CD30, CD15, PAX5 (weak), fascin, and CD20. Although it is difficult to interpret due to dense background cellularity, they appear to be negative for CD45 (LCA) and CD3. CD68 highlights many background histiocytes. Ki-76 highlights most of the large abnormal cells, as well as a background of approximately 10% lymphocytes. Immunohistochemistry performed at [facility], [place], [place], shows that the large abnormal cells are positive for BOB1 and OCT2. IN-SITU HYBRIDIZATION: EBV-encoded RNA (SABRINA) MARION is positive in the large abnormal cells. Hodgkin lymphoma 10/20/2018 Overview (08/16/2024): Right lymph node excision, reported 10/18/2018, 6 months ABVD chemo 2D ECHO 02/08/19 EF 60-65% Gastroesophageal reflux disease with esophagitis 10/12/2018 Lymphadenopathy 10/12/2018 Night sweats 10/12/2018 Functional dyspepsia 06/01/2018 Hyperlipidemia 08/09/2017 Overview (08/16/2024): LDL 155, 08/08/2017 Gallbladder polyp 12/17/2015 Hepatomegaly 12/17/2015 Overview (08/16/2024): US 09/21/2018 Asthma 11/14/2013 Lichen simplex chronicus 12/09/2012 Overview (08/16/2024): Last Assessment & Plan: I encouraged her to treat with topical steroid nightly for two weeks, soak and seal with coconut oil, and follow [facility] guidelines. PATRICK (obstructive sleep apnea) 12/09/2011 Overview (08/16/2024): N/A Pulmo 06/17/2016 ResScan 04/02/2016 to 05/01/2016. CPAP@ 4-12/Average 7.9/Max 8.6. 70% compliant with using the machine for >4 hours/day. Average use is 5 hours a night with AHI 0. Resolved Problems Problem Noted Date Diagnosed Date Resolved Date Intractable pain 09/01/2023 09/19/2024 Iron deficiency anemia 12/10/202209/19 Palpitations 10/28/2022 09/19/2024 TIA (transient ischemic attack) 10/28/2022 09/19/2024 Dysuria 06/03/2021 09/19/2024 Overview (08/16/2024): Last Assessment & Plan: Will send urine culture and treat prn. Urinary frequency could also be due to recurrent DM 2. 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 (CMS/HCC) (Primary Dx); Iron deficiency anemia due to chronic blood loss; Anemia in neoplastic disease; Intractable pain; Neck pain; Fibromyalgia; PATRICK (obstructive sleep apnea) 09/19/2024 11:15 AM EST Office Visit Obstetrics and Gynecology - [address] [phone] Constance Canales CNM Vaginal discharge (Primary Dx); Vaginal odor; Vulvar itching; Urinary frequency 09/16/2024 Telephone Obstetrics and Gynecology - [address] [phone] Fahad Wright MD Vaginal Itching from Last 3 Months Immunizations Name Administration Dates Next Due H1N1 Inj Preservative Free 07/31/2009 HPV 9-valent (Gardisil) 9yo to less than 46yo 05/02/2021,12/26/2020,06/27/2020 Hepatitis B (Qcfxofg-N-Owacs , Recombivax HB-Adult) 19yo and older 05/24/2014,12/16/2007 Influenza trivalent, 0.5mL, preservative free (Fluarix; FluLaval; Fluzone) ages 6mo and older (Afluria) 3 years and older 08/03/2024,06/25/2021,08/05/2020,07/16 Influenza, Unspecified 07/07/2022,07/09/2021 MMR, measles mumps and rubel la Live (Priorix; M-M-R II) 12mo and older 05/27/2014 PPD Test 05/14/2016,06/13/2015 Pfizer SARS-CoV-2 COVID-19, mRNA, LNP-S, preservative free 07/09/2021,11/28/2020,11/07/2020 Pneumococcal polysaccharide 23 valent (Pneumovax 23) 2yo and older 11/14/2013 Td Tetanus diptheria (Tdvax) 7yo and older 07/26/2018 Tdap Tetanus diptheria acell ular pertussis (Boostrix; Adacel) 7yo and older 12/16/2007 Varicella live (Varivax) 12m o and older 05/27/2014 Surgical History Surgery Date Site/Laterality Comments TUBAL LIGATION PROCEDURE: HISTORICAL TUBAL LIGATION UPPER GASTROINTESTINAL ENDOSCOPY 12/31/17 Stephan PROCEDURE: ME UPPER GI ENDOSCOPY PERFORMED; COMMENT: erosions and erythema antrum and bulb; nl esophagus, but free flow of gastric contents. Active duodenitis with H. pylori; chronic gastritis with H. pylori OTHER SURGICAL HISTORY 11/2018 PROCEDURE: BONE MARROW BIOPSY; COMMENT: negative for disease in setting of Hodgkin Lymphoma OTHER SURGICAL HISTORY PROCEDURE: ME CHEMOTX ADMN PERTL CAVITY IMPLANTED PORT/CATH; COMMENT: Port A Cath ABDOMINAL SURGERY 02/2021 PROCEDURE: HISTORICAL ABDOMINAL SURGERY; COMMENT: sleeve gastrectomy dr. alfaro HYSTERECTOMY 12/17/2022 PROCEDURE: HISTORICAL VAGINAL HYSTERECTOMY W/O BSO; COMMENT: menorrhagia, adenomyosis- Eppsteiner Medical History Medical History Date Comments Abnormal chest x-ray 03/03/2019 DX:Abnormal chest x-ray; COMMENT: 02/20 - recommended follow up chest CT Acanthosis nigricans 12/09/2012 DX:Acanthos is nigricans Asthma 11/14/2013 DX:Asthma Diabetes mellitus type 2, uncomplicated (CMS/HCC) 10/25/2018 DX:Diabetes mellitus type 2, uncomplicated (HCC) Functional dyspepsia 06/01/2018 DX:Function al dyspepsia Gallbladder polyp 12/17/2015 DX:Gallbladder polyp GERD (gastroesophageal reflux disease) 04/25/2011 DX:GERD (gastroesophageal reflux disease) Hepatomegaly 12/17/2015 DX:Hepatomegaly; COMMENT: US 09/21/2018 Hodgkin lymphoma (CMS/HCC) 10/20/2018 DX:Ho dgkin lymphoma (HCC); COMMENT: Right lymph node excision, reported 10/18/2018, 6 months ABVD chemo 2D ECHO 02/08/19 EF 60-65% Hyperlipidemia 08/09/2017 DX:Hyperlipidemi a; COMMENT: LDL 155, 08/08/2017 Menorrhagia with regular cycle 09/13/2018 D X:Menorrhagia with regular cycle; COMMENT: Tried Mirena IUD with BTB and had this removed 10/2018 Benign EMB 11/04/18 FAHAD WRIGHT MD Morbid obesity with BMI of 4 5.0-49.9, adult (CMS/HCC) 12/09/2011 DX:Morbid obesity with BMI o f 45.0-49.9, adult (HCC) MRSA carrier 11/09/2019 DX:MRSA carrier PATRICK (obstructive sleep apnea) 12/09/2011 DX :PATRICK (obstructive sleep apnea); COMMENT: N/A Pulmo 06/17/2016 ResScan 04/02/2016 to 05/01/2016. CPAP@ 4-12/Average 7.9/Max 8.6. 70% compliant with using the machine for >4 hours/day. Average use is 5 hours a night with AHI 0. Port-A-Cath in place 11/09/2019 DX:Port-A-C ath in place Vitamin D deficiency 07/20/2019 DX:Vitamin D deficiency Family History Medical History Relation Name Comments No Known Problems Daughter x 2 health y daughters Stroke Father skin cancer Breast cancer Maternal Grandmother 70's CAD Other: HIV Mother AIDS No Known Problems Sister x 4 health y sisters No Known Problems Son x 3 health y sons Relation Name Status Comments Daughter Alive Father Alive Maternal Grandmother 70's Mother Sister Alive Son Alive Social History Tobacco Use Types Packs/Day Years Used Date Smoking Tobacco: Former Cigarettes 0.1 23.9 0 02/02/1994 - 01/03/2018 Smokeless Tobacco: Never Tobacco Cessation:Counseling Given: Not Answered Alcohol Use Standard Drinks/Week Comments No 0 (1 standard drink = 0.6 oz pur e alcohol) Housing Instability Answer Date Recorde d Are you worried that in the next 2 months you may not have stable housing? No 09/19/2024 Food Access & Nutrition Answer Date Rec orded Do you have access to a vari ety of food including fruits and vegetables? Yes 09/19/2024 Health Literacy Answer Date Recorded How often do you need to hav e someone help you when you read instructions, pamphlets, or other written material from your doctor or pharmacy? Never 09/19/2024 Caregiver: How often do you need to have someone help you when you read instructions, pamphlets, or other written material from your doctor or pharmacy? Not on file 09/19/2024 Financial Risk Answer Date Recorded How hard is it for you to pa y for the very basics like food, housing, medical care, and air conditioning / heating? Not very hard 09/19/2024 Transportation Answer Date Recorded Has the lack of transportati on kept you from meetings, work, or from getting things needed for daily living? No Has the lack of transportati on kept you from medical appointments or from getting medications? No 09/19/2024 Social Isolation Answer Date Recorded How often do you feel lonely or isolated from th ose around you? Never 09/19/2024 Food Risk Answer Date Recorded Within the past 12 months we worried whether our food would run out before we got money to buy more. Never true 09/19/2024 Within the past 12 months th e food we bought just didn't last and we didn't have money to get more. Never true 09/19/2024 Dependent Care Answer Date Recorded Do you need help finding or paying for care for your loved ones. For example, child development consultant or elderly care for an older adult? No 09/19/2024 Education Answer Date Recorded Do you think completing more education or training, like finishing a GED, going to college, or learning a trade, would be helpful for you? Yes 09/19/2024 Employment and Income Answer Date Recor ded During the last four weeks, have you been actively looking for work? No 09/19/2024 Living Situation Answer Date Recorded What is your living situation? 1 11/20/2023 Sex and Gender Information Value Date Recorded Sex Assigned at Female 07/09/2021 9:10 AM EDT Gender Identity Female 07/09/2021 9:10 AM EDT Sexual Orientation Straight 07/09/2021 9: 10 AM EDT Job Start Date Occupation Industry Not on file Not on file Not on file Obstetrics History Para Term AB IAB SAB Ectopic Multiple Livin g Live Births 7 5 5 0 2 1 1 0 0 5 5 Date Outcome GA Total Labor Labor/2nd/3rd Weight Sex Type Anes PTL Mari A1 A5 Name Clin 1993 Term 40w 0d 10h 00m/ 2863 g (101 oz) M Vag-S pont Epidur al Livin g Ludwig Machado Delivery Location:[facility] 1995 Term 40w 0d 3h 00m/ 2835 g (100 oz) M Vag-S pont Livin g Ladonna o Machado Delivery Location:[facility] 1997 SAB 1998 Term 40w 0d 4h 00m/ 2778 g (98 oz) F Vag-S pont Livin g Mireli a Machado Delivery Location:[facility] 2004 IAB 2008 Term 39w 2d 13h 00m/ 3430 g (121 oz) F Vag-S pont Epidur al Livin g 8 9 Bello Burgos on, CNM Delivery Location:[facility] 2010 Term 40w 3d 7h 52m/ 3402 g (120 oz) M Vag-S pont None Livin g 5 8 quinten flores Delivery Location:[facility] Last Filed Vital Signs Vital Sign Reading Time Taken Comments Blood Pressure 134/70 10/12/2024 11:51 AM EST Pulse 70 10/12/2024 11:51 AM EST Temperature 36.3 ??C (97.4 ??F) 10/12/2024 11:[address] Respiratory Rate 14 09/19/2024 11:37 AM EST Oxygen Saturation 95% 10/12/2024 11:51 AM EST Inhaled Oxygen Concentration - - Weight 84.8 kg (187 lb) 10/12/2024 11:51 AM EST Height 154.9 cm (5' 1 ) 09/19/2024 11:37 AM EST Body Mass Index 35.33 09/19/2024 11:37 AM EST Plan of Treatment Upcoming Encounters Date Type Department Care Team (Late st Contact Info) Description 11/02/2024 12:30 PM EST Office Visit [facility] [place] [address] [place], [place] [phone] Fabio Moe PA [address] [place], [place] 11/14/2024 10:30 AM EST Office Visit [facility] Hematology Oncology [address] [place] [phone] Gagandeep Wright MD [address] [place] [phone] 11/24/2024 10:55 AM EST Appointment Radiology Department - [address] [phone] 12/13/2024 3:30 PM EDT Ancillary Procedure [facility] [address] [facility] Jace [address] [place] [phone] 12/19/2024 7:30 AM EDT Hospital Encounter [facility] Main OR [address] [place] [phone] Kyara Castillo MD [address] [place] [address] 12/19/2024 7:30 AM EDT - 12/19/2024 10:30 AM EDT Surgery [address] [phone] Kyara Castillo MD [address] [place] [address] ABDOMINOPLASTY & PANNICULECTOMY [[id number] (CPT??) +1 more] Scheduled Procedures Name Priority Associated Diagnoses Date/Ti me ABDOMINOPLASTY Excessive and redundant skin and subcutaneous tissue Low back pain, unspecified 12/19/2024 7:30 AM EDT Health Maintenance Due Date Last Done Comments Diabetes: Annual Foot Exam 1988 Diabetes: Annual Retina Eye Exam 1988 Cervical Cancer Screening: HPV 1999 Hepatitis B Vaccines (3 of 3 - 19+ 3-dose series) 07/19/2014 05/24/2014, 12/16/2007 Pneumococcal Vaccine: Pediatrics (0 to 5 Years) and At-Risk Patients (6 to 64 Years) (2 of 2 - PCV) 11/14/2014 11/14/2013 Colorectal Cancer Screening: Colonoscopy 06/18/2020 HIV Screening 06/18/2020 Hepatitis C Screening 06/18/2020 Diabetes: Annual Urine Albumin-Creatinine Ratio (uACR) 09/19/2022 COVID-19 Vaccine () 06/05/2024 07/09/2021, 11/28/2020, 11/07/2020 Diabetes: Blood Sugar Control Test (HGBA1C) 02/01/2025 08/04/2024, 03/08/2024 Diabetes: Annual GFR (Glomerular Filtration Rate) 08/04/2025 08/04/2024, 03/08/2024 Social Influencers of Health Screening 09/19/2025 09/19/2024 Depression Screening 10/28/2025 10/28/2024 Breast Cancer Screening 11/16/2025 11/16/19, 11/28/2022, 11/22/2021, Additional history exists DTaP,Tdap,and Td Vaccines (3 - Td or Tdap) 07/26/2028 07/26/2018, 12/16/2007 Cholesterol Screening (Lipid Panel) 08/04/2029 08/04/2024, 03/08/2024 MMR Vaccines Aged Out 05/27/2014 No longer eligi ble based on patient's age to complete this topic Varicella Vaccines Aged Out 05/27/2014 No longer eligible based on patient's age to complete this topic HPV Vaccines Completed 05/02/2021, 12/04, 06/27/2020 Influenza Vaccine Completed 08/03/2024, , 07/09/2021, Additional history exists HIB Vaccines Aged Out No longer eligi ble based on patient's age to complete this topic Hepatitis A Vaccines Aged Out No long er eligible based on patient's age to complete this topic IPV Vaccines Aged Out No longer eligi ble based on patient's age to complete this topic Meningococcal ACWY Vaccine Aged Out N o longer eligible based on patient's age to complete this topic RSV Immunization Patients Under 20 months Aged Out No longer eligible based on patient's age to complete this topic Procedures Procedure Name Priority Date/Time Associated Diagnosis Comments POC WET MOUNT Routine 09/19/2024 11:59 AM EST Vaginal discharge Vaginal odor CULTURE URINE Routine 09/19/2024 11:54 AM EST Urinary frequency DIAGNOSTIC MAMMOGRAPHY INCLUDING CAD BILATERAL Routine 11/16/2023 2:27 PM EST Unspecified lump in the left breast, upper outer quadrant Personal history of Hodgkin lymphoma from Last 3 Months or Most Recently Relevant to Health Maintenance Results * (ABNORMAL) POC Wet Mount (09/19/2024 11:59 AM EST) Trichomonas, Wet Prep POC Absent Absent Yeast, Wet Prep POC Negative Not Applicable, Negative Clue Cells, Wet Prep POC Positive(A) Not Applicable, Negative Whiff Test, Wet Prep POC Negative Not Done, Negative Vaginal Fluid Vaginal structure / Unknown 09/19/2024 11:59 AM EST Constance Canales CNM POINT OF CARE TEST ENTER/EDIT ORDERABLES * Culture urine (09/19/2024 11:54 AM EST) Culture, Urine No growth 09/20/2024 7:59 AM EST [facility] Urine Urine specimen obtained by clean catch procedure / Unknown Non-blood Collection / Unknown 09/19/2024 11:54 AM EST 09/19/2024 11:54 AM EST Constance Graysonanthonyerendira [facility] MICROBIOLOGY - GENERAL ORDERABLES [facility] [address] [place] [address], * DIAGNOSTIC MAMMOGRAPHY INCLUDING CAD BILATERAL (11/16/2023 2:27 PM EST) Anatomical Region Laterality Modality Mammography 10/26/2023 11:5 1 AM EST Narrative 11/16/2023 3:11 PM EST This is a summary report. The complete report is available in the patient's medical record. If you cannot access the medical record, please contact the sending organization for a detailed fax or copy. Bilateral mammogram. ??Limited left breast ultrasound. History lump in the left breast at 1:00, 6 cm from the nipple by the provider. ??Full-field digital 2D C views and tomosynthesis mammograms were obtained as well as spot compression views of the left breast in CC and MLO projections with attention to the upper outer region. ??Compared with priors. ??Reviewed with CAD. Breast tissue is of mixed density. ??There is no suspicious masses, microcalcifications or architectural distortion. Limited ultrasound of the left breast. Patient herself does not feel a lump. ??Examination was directed by the provider's note to 1:00. There is a complex cystic structure at 1:00, 6 cm from the nipple measuring 0.5 x 0.2 x 0.4 cm. ??It could represent a focus of apocrine metaplasia. ??Findings were explained to the patient. ??She was given an option of 6 months suggested to have 6 months follow-up ultrasound. ??However patient preferred to have ultrasound- guided biopsy with a clip placement. Conclusions: Complex cystic structure at 1:00 6 cm from the nipple. ??Biopsy of this region under ultrasound guidance is scheduled. BI-RADS 4A, low suspicion for malignancy. Procedure Note Hoa Yuan MD - 05/23/2024 This is a summary report. The complete report is available in thepatient's medical record. If you cannot access the medical record, pleasecontact the sending organization for a detailed fax or copy. Bilateral mammogram. Limited left breast ultrasound. History lump in the left breast at 1:00, 6 cm from the nipple by theprovider. Full-field digital 2D C views and tomosynthesis mammograms wereobtained as well as spot compression views of the left breast in CC andMLO projections with attention to the upper outer region. Compared withpriors. Reviewed with CAD. Breast tissue is of mixed density. There is no suspicious masses,microcalcifications or architectural distortion. Limited ultrasound of the left breast. Patient herself does not feel a lump. Examination was directed by theprovider's note to 1:00. There is a complex cystic structure at 1:00, 6 cm from the nipplemeasuring 0.5 x 0.2 x 0.4 cm. It could represent a focus of apocrinemetaplasia. Findings were explained to the patient. She was given anoption of 6 months suggested to have 6 months follow-up ultrasound.However patient preferred to have ultrasound-guided biopsy with a clipplacement. Conclusions: Complex cystic structure at 1:00 6 cm from the nipple.Biopsy of this region under ultrasound guidance is scheduled. BI-RADS 4A, low suspicion for malignancy. Fahad Wright MD IMG BI PROCEDURES from Last 3 Months or Most Recently Relevant to Health Maintenance Care Teams Post Splitter Relationship Specialty Start Date End Date Fabio Moe PA [address] [place] [address] PCP - General Internal Medicine 04/23/20
--- OUTSIDE RECORDS SUMMARY | 2024-11-01 06:10 | XMS_ITS | Encounter Summary ---
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 For example, early childhood coordinator or elderly care for an older adult? [...] file Not on file Not on file documented as of this encounter Last Filed Vital Signs Vital Sign Reading Time Taken Comments Blood Pressure 134/70 10/12/2024 11:51 AM EST Pulse 70 10/12/2024 11:51 AM EST Temperature 36.3 ??C (97.4 ??F) 10/12/2024 11:[address] Respiratory Rate - - Oxygen Saturation 95% 10/12/2024 11:51 AM EST Inhaled Oxygen Concentration - - Weight 84.8 kg (187 lb) 10/12/2024 11:51 AM EST Height - - Body Mass Index 35.33 09/19/2024 11:37 AM EST documented in this encounter Ordered Prescriptions Prescription Sig Dispensed Refills Start Date End Da te morphine (MS CONTIN) 15 mg 12 hr tabletIndications: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 Do not crush, chew, or split. Max Daily Amount: 30 mg 60 tablet 10/12/2024 documented in this encounter Progress Notes * Gagandeep Shah-MD Sandra - 10/12/2024 11:45 AM EST CHIEF COMPLAINT: Chief Complaint Patient presents with Follow-up Hodgkin lymphoma, initial diagnosis September 2018 Treatment, ABVD x6 months completed in April 2019 Cervical Disc prolapse IDENTIFIER:Igor Jiménez is a 44 y.o. female. HPI: The patient returns for follow up of Hodgkin lymphoma Intractable neck pain For details of initial diagnosis and follow up until AUG 05, 2024- please refer to notes from prior [facility] EMR last note dated 04/04/2024 Patient is more than 5 years from completion of 6 months of ABVD regimen for stage III classical Hodgkin lymphoma. Patient reports ongoing issues with generalized pain. She had evaluation at [facility], received injections and finally has a diagnosis of fibromyalgia. She is following with pain management in [place] who is trying to schedule her for a second time management with a dorsal column stimulator. She has gained some weight. She has not noticed any lymphadenopathy. Pain is mostly 10/10, has partial relief with the use of oxycodone 3 times a day. She is also using gabapentin without much effect. May plan to taper and stop the gabapentin, may add long-acting pain medication such as more MS Contin, patient agrees The following is copied, reviewed and edited Cancer Staging No matching staging information was found for the patient. Oncology History No history exists. This is a 38-year-old lady, who is referred for medical oncology evaluation, regarding management of recently diagnosed lymphoma. On 09/16/2018, she had an ultrasound-guided biopsy of the right axillary lymph node. Pathology results are available, and are reviewed. This showed polymorphous lymphoid cell population grade there was a small fragment of lymphoid tissue with crush artifact. The flow cytometry specimen showed aberrant T-cell population, and polytypic B cells. There was decreased expression of several T- cell adhesions amounts CD4 and CD8. T-cell lymphoma could not be entirely excluded. Possible reactive process also. Excisional lymph node biopsy was recommended. She had an excisional biopsy of the right axillary lymph node, on 09/27/2018. Diagnosis appears to be lymphoma, subtype is pending Final pathology results are awaited. Patient reports symptoms related to night sweats, non drenching, as well as occasional chills. She has not had any significant fevers. Weight has remained stable 10/2018 -- Final pathology report is available and is discussed with the patient and a copy given to her She has completed lab work, had a PET/CT scan and also echocardiogram and is here to review the results. PLAN --I discussed with pathologist regarding the diagnosis. A copy of the report is provided to the patient #2 staging PET/CT scan is reviewed--this is at least stage III, non-bulky disease with disease in the mediastinal area and retroperitoneum. Patient also had right axillary disease which is biopsied #3 complete staging involves a bone marrow biopsy, this will be scheduled in the next few days #4 I discussed with the patient regarding systemic therapy, I recommend combination chemotherapy with the ABVD regimen. NCCN guidelines were reviewed. 6 cycles of therapy are recommended Doxorubicin (Adriamycin) 25 mg/m2 IV once per day on days 1 & 15 Bleomycin (Blenoxane) 10 units/m2 IV once per day on days 1 & 15 Vinblastine (Velban) 6 mg/m2 IV once per day on days 1 & 15 Dacarbazine (DTIC) 375 mg/m2 IV once per day on days 1 & 15 I discussed with the patient regarding the benefits and risks of chemotherapy. The intent of chemotherapy is curative 04/2024 In the interim she had rheumatology evaluation at [facility], and underwent injection to the left trochanter bursa with partial relief. She has gained about 10 pounds in weight. Neck pain is well-controlled with oxycodone on most days except during the later part of the week. No recent surgeries. 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 Due for lab work, restaging imaging, will obtain CT neck, CAP with contrast She had lab work performed at her PCP office vitamin D level was low, anemia is mild, iron indicis are low, no documentation of high-dose vitamin D, I will send in prescription Also due to concerns for swallowing underwent upper GI barium series, small hiatal hernia was found. Continues on oxycodone for neck pain. Seen by neurosurgeon, recommended injections. No further episodes of TIA/CVA She uses gabapentin regularly but off the meloxicam ROS: GENERAL: No malaise, significant weight loss or fever NECK: No lumps, goiter, pain or significant neck swelling RESPIRATORY: No cough, wheezing or shortness of breath CARDIOVASCULAR: No chest pain, leg swelling or palpitations GI: No abdominal discomfort, blood in stools or black stools MUSCULOSKELETAL: No joint pain or swelling, back pain, or muscle pain. HEMATOLOGY/LYMPHOLOGY No prolonged bleeding, easy bruisability or swollen nodes Other Systems review is non contributory PAST MEDICAL HISTORY: Active Ambulatory Problems Diagnosis Date Noted Abscess, gluteal, left 12/24/2018 Acute non-recurrent frontal sinusitis 02/24/2019 Acute nonintractable headache 09/05/2021 Cellulitis 04/22/2019 Anemia in neoplastic disease 10/27/2018 Cervical disc disease 12/09/2019 Cough 03/02/2019 Gastroesophageal reflux disease with esophagitis 10/12/2018 Inguinal adenopathy 12/31/2018 Intractable pain 09/01/2023 Lymphadenopathy 10/12/2018 Memory loss 12/16/2018 Iron deficiency anemia due to chronic blood loss 10/27/2018 Mass of upper outer quadrant of left breast 10/26/2023 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 (CMS/HCC) 10/20/2018 Nausea 10/27/2018 Neck pain 02/10/2020 Night sweats 10/12/2018 Other fatigue 12/16/2018 Other insomnia 12/16/2018 Pain of upper abdomen 10/27/2018 Vitamin D deficiency 07/20/2019 Weight loss 09/05/2021 Abnormal chest x-ray 03/03/2019 Anxiety and depression 11/22/2020 Asthma 11/14/2013 Diabetes mellitus type 2, uncomplicated ([facility]) 10/25/2018 Functional dyspepsia 06/01/2018 Gallbladder polyp 12/17/2015 Hepatomegaly 12/17/2015 History of laparoscopic partial gastrectomy 03/06/2021 Hodgkin lymphoma ([facility]) 10/20/2018 Hyperlipidemia 08/09/2017 Lichen simplex chronicus 12/09/2012 Mild ascending aorta dilation ([facility]) 12/28/2023 MRSA carrier 12/31/2018 PATRICK (obstructive sleep apnea) 12/09/2011 Overweight (BMI 25.0-29.9) 06/13/2022 Recurrent vaginitis 10/26/2023 Trochanteric bursitis of both hips 02/02/2024 Cervical disc herniation 12/09/2019 Fibromyalgia 02/02/2024 Palpitations 10/28/2022 TIA (transient ischemic attack) 10/28/2022 Resolved Ambulatory Problems Diagnosis Date Noted Anxiety 10/12/2018 Lymphoma of lymph nodes of multiple regions ([facility]) 10/12/2018 Microcytic anemia 10/12/2018 Palpitations 10/28/2022 TIA (transient ischemic attack) 10/28/2022 Dysuria 06/03/2021 GERD (gastroesophageal reflux disease) 04/25/2011 Intractable pain 09/01/2023 Iron deficiency anemia 12/10/2022 Past Medical History: Diagnosis Date Acanthosis nigricans 12/09/2012 Menorrhagia with regular cycle 09/13/2018 Morbid obesity with BMI of 45.0-49.9, adult ([facility]) 12/09/2011 Port-A-Cath in place 11/09/2019 SOCIAL HISTORY: Social History Tobacco Use Smoking status: Former Current packs/day: 0.00 Average packs/day: 0.1 packs/day for 23.9 years (2.4 ttl pk-yrs) Types: Cigarettes Start date: 02/02/1994 Quit date: 01/03/2018 Years since quittin.7 Smokeless tobacco: Never Substance Use Topics Alcohol use: No FAMILY HISTORY: Family History Problem Relation Name Age of Onset Other (Other: HIV) Mother AIDS Breast cancer Maternal Grandmother 70's CAD Stroke Father skin cancer No Known Problems Sister x 4 healthy sisters No Known Problems Son x 3 healthy sons No Known Problems Daughter x 2 healthy daughters Current Outpatient Medications: acetaminophen (TYLENOL) 500 mg tablet, TAKE 1 TABLET (500 MG TOTAL) BY MOUTH EVERY 6 (SIX) HOURS ASNEEDED FOR PAIN., Disp: 90 tablet, Rfl: 1 albuterol sulfate 90 mcg/actuation aerosol powdr breath activated, Inhale 2 puffs into the lungs continuous prn., Disp: , Rfl: ergocalciferol (VITAMIN D-2) 1,250 mcg (50,000 unit) capsule, Take 1 capsule (50,000 Units total) by mouth once a week., Disp: , Rfl: ferrous sulfate 325 mg (65 mg elemental iron) tablet, TAKE 1 TABLET BY MOUTH TWICE A DAY, Disp: 180tablet, Rfl: 1 fluticasone furoate (ARNUITY ELLIPTA) 200 mcg/actuation blister with device inhaler, Inhale 220 mcginto the lungs 2 (two) times a day., Disp: , Rfl: fluticasone propionate (FLONASE) 50 mcg/actuation nasal spray, spray/apply 2 sprays in each nostrilcontinuous prn., Disp: , Rfl: montelukast (SINGULAIR) 10 mg tablet, TAKE 1 TABLET BY MOUTH EVERYDAY AT BEDTIME, Disp: 90 tablet, Rfl: 1 nystatin-triamcinolone (MYCOLOG II) ointment, 2x/day to affected area as needed for itching for up to 14 days, Disp: 30 g, Rfl: 2 omeprazole (PRILOSEC) 20 mg tablet,delayed release (DR/EC), Take 20 mg by mouth daily., Disp: , Rfl: ondansetron (ZOFRAN) 4 mg tablet, Take 1 tablet (4 mg total) by mouth every 6 hours as needed., Disp: , Rfl: oxyCODONE (ROXICODONE) 5 mg immediate release tablet, Take 1 tablet (5 mg total) by mouth every 8 (eight) hours if needed for severe pain. Max Daily Amount: 15 mg, Disp: 90 tablet, Rfl: 0 sertraline (ZOLOFT) 100 mg tablet, TAKE 1 TABLET BY MOUTH EVERY DAY, Disp: , Rfl: morphine (MS CONTIN) 15 mg 12 hr tablet, Take 1 tablet (15 mg total) by mouth every 12 (twelve) hours. Do not crush, chew, or split. Max Daily Amount: 30 mg, Disp: 60 tablet, Rfl: 0 No Known Allergies PHYSICAL EXAM: Visit Vitals BP 134/70 (BP Location: Left arm, Patient Position: Sitting, BP Cuff Size: Large adult) Pulse 70 Temp 36.3 ??C (97.4 ??F) (Temporal) Wt 84.8 kg (187 lb) SpO2 95% BMI 35.33 kg/m?? OB Status Hysterectomy Smoking Status Former BSA 1.84 m?? APPEARANCE: Alert and fatigued Mild distress due to pain EYES: PERRL, conjunctiva pink and sclera are Normal without icterus ORAL CAVITY: No erythema or exudates NECK: Neck supple, no adenopathy, HEART: RRR with normal S1 and S2, no murmurs, no gallops, no JVD appreciated LUNG: clear to auscultation bilaterally Percussion note normal LYMPH NODES: No palpable superficial adenopathy ABDOMEN: Bowel sounds normoactive, no bruits, soft, non-tender, without organomegaly or palpable masses EXTREMITIES: Extremities warm and well perfused without clubbing, cyanosis, rash or edema NEURO: Oriented X 3, no focal weakness; sensation is normal Slow gait LABS: Review of Lab results , interpreted No results found for: WBC , HGB , HCT , MCV , PLT No results found for: NA , K , CL , CO2 , GLUCOSE , BUN , CREATININE , CALCIUM , PROT , ALBUMIN , BILITOT , AST , ALT , URICACID , PHOS , MG , ALKPHOS , CKTOTAL , EGFR Review of Imaging, interpreted RADIOLOGIC EXAM CHEST 2 VIEWS History: Cough and congestion. Asthma. Chest PA and lateral: The lungs are clear. There are no infiltrates or effusions. The vasculature is not congested. The cardiac and mediastinal silhouettes appear normal. Bony structures are radiographically intact. IMPRESSION: No evidence of active pathology in the chest. Review of External Documentation Notes from PCP office Tests ordered - IMPRESSION: 1. 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 Iron deficiency anemia due to chronic blood loss 3. Anemia in neoplastic disease 4. Intractable pain 5. Neck pain 6. Fibromyalgia 7. PATRICK (obstructive sleep apnea) PLAN: 44yo lady with hodgkin lymphoma, about 5years since completion of 6 cycles of ABVD regimen #1-Classical Hodgkin lymphoma, stage III disease, initial diagnosis in September 2018, stage III non-bulky disease, completed treatment with ABVD regimen x6 months in April 2019 Completed 5 years of clinical and imaging surveillance Restaging imaging reviewed, no evidence of disease recurrence, reassured CT scans from April 2024 Patient continues on closely surveillance for high risk Hodgkin lymphoma stage III, with high risk of recurrence Hold off further imaging unless clinical symptoms/signs of recurrence #2 anxiety/depression and also PTSD issues- Continue sertraline, follow-up with PCP and psychotherapy #3 cervical disc prolapse Continue follow-up with neurosurgery, [place] [facility] - had partial relief Partial relief with injection therapy Patient is using oxycodone 5 mg 3 times a day #4 Fibromyalgia Partial relief with oxycodone Will add on long-acting morphine 15 mg every 12 hours Taper and stop gabapentin which does not seem to be helping #6 Obesity, completed gastric sleeve procedure on 02/18/2021 - lost more than 100 lbs in 1 year, butwith recent gradual weight gain noted Should monitor for vitamin deficiencies such as iron, B12, vitamin D - latest vitamin D level is low, I sent in a 3-month prescription for high-dose vitamin D supplementation #7 palpitations-improved, but has intermittent chest discomfort: Follows with cardiology, echocardiogram #8 question of TIA/CVA with facial deviation request MRI with without contrast, MRI brain reviewed 10/31/2022-no acute intracranial abnormality no intracranial tumor. --May need lorazepam prior to any future MRI imaging Follow-up in 1 month, and sooner if new issues Pain Control--partial control oxycodone using 2- 3 a day worsening, will add long-acting morphine health Care Proxy-- Gagandeep Wright MD Cc KELLY Schneider documented in this encounter Plan of Treatment Upcoming Encounters Date Type Department Care Team (Late st Contact Info) Description 11/02/2024 12:30 PM EST Office Visit Adult Medicine [facility] [address] [place] [phone] Fabio Moe PA [address] [place] [address] 11/14/2024 10:30 AM EST Office Visit [facility] Hematology Oncology [address] [place] [phone] Gagandeep Wright MD [address] [place] [phone] 11/24/2024 10:55 AM EST Appointment Radiology Department - [address] [phone] 12/13/2024 3:30 PM EDT Ancillary Procedure [facility] [address] [facility] Jace [address] [place] [phone] 12/19/2024 7:30 AM EDT Hospital Encounter [facility] Main OR [address] [place] [phone] Kyara Castillo MD [address] [place] [address] 12/19/2024 7:30 AM EDT - 12/19/2024 10:30 AM EDT Surgery [address] [phone] Kyara Castillo MD [address] [place] [address] ABDOMINOPLASTY & PANNICULECTOMY [[id number] (CPT??) +1 more] Scheduled Procedures Name Priority Associated Diagnoses Date/Ti me ABDOMINOPLASTY Excessive and redundant skin and subcutaneous tissue Low back pain, unspecified 12/19/2024 7:30 AM EDT documented as of this encounter Visit Diagnoses Diagnosis 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 (CMS/HCC)- Primary Iron deficiency anemia due to chronic blood loss Iron deficiency anemia secondary to blood loss (chronic) Anemia in neoplastic disease Intractable pain Neck pain Cervicalgia Fibromyalgia Unspecified myalgia and myositis PATRICK (obstructive sleep apnea) Obstructive sleep apnea (adult) (pediatric) Excessive and redundant skin and subcutaneous tissue Low back pain, unspecified documented in this encounter Discontinued Medications Medication Sig Discontinue Reason Start Date End Da te gabapentin (NEURONTIN) 400 mg capsule TAKE 1 CAPSULE BY MOUTH THREE TIMES A DAY 10/10/2024 10/12/2024 documented as of this encounter Additional Health Concerns Assessment Noted Time PHQ-9 Depression Total Score: 0 09/19/20 24 11:16 AM EST documented as of this encounter Care Teams Head Of Digital Relationship Specialty Start Date End Date Fabio Moe PA [address] [place] [address] PCP - General Internal Medicine 04/23/20 documented as of this encounter
--- OUTSIDE RECORDS SUMMARY | 2024-11-01 06:10 | XMS_ITS | Clinical Summary ---
Author Organization [facility] Address [address] [place] [address] Care Team Providers Care Manager Of Development Name Role Phone Fabio Moe Primary Care Provider [phone] Allergies No known active allergies Medications acetaminophen [...] propionate (FLONASE) 50 mcg/actuation nasal spray SMARTSI [place](s) Both Nares Daily Active gabapentin (NEURONTIN) 400 [...] Mass Index - - Plan of Treatment Health Maintenance Due Date Last Done Comments Cologuard 1978 Colon Cancer Screening 1978 Colonoscopy 1978 FOBT / Fit Test 1978 HIV Screening 1978 HPV and Pap Smear 1978 Hepatitis C Screening 1978 Sigmoidoscopy 1978 Hepatitis B Vaccines (1 of 3 - 19+ 3-dose series) 1997 Mammogram 2018 Cervical Cancer Screening 06/27/2023 Pap Smear 06/27/2023 06/27/2020 COVID-19 Vaccine ( season) 2024 07/09/2021, 11/28/2020, 11/07/2020 Influenza Vaccine (#1) 2024 , 06/25/2021, 08/05/2020, Additional history exists Alcohol/Substance Use Screening 10/05/2024 Depression Screening and Follow-Up 10/05/2024 Social Drivers of Health Annual Screening 10/05/2024 DTaP,Tdap,and Td Vaccines (3 - Td or Tdap) 07/26/2028 07/26/2018, 12/16/2007 RSV Vaccine (60+ years old and patients) (1 - 1-dose 75+ series) 2053 Pneumococcal Vaccine: Pediatric (0-5 Years) and At-Risk Patients (6-64 Years) Aged Out 11/14/2013 No longer eligible based on patient's age to complete this topic Insurance [employer] Care Teams Manager Of Development Relationship Specialty Start Date End Date Fabio Moe PCP - General Internal Medicine 01/18/24
--- OUTSIDE RECORDS SUMMARY | 2024-11-01 06:10 | XMS_ITS | Clinical Summary ---
Author Organization [facility] Address [address] [place] [address] Care Team Providers Care Trading Floor Operator Name Role Phone Fabio Moe PA-C Primary Care Provider Allergies No known active allergies Medications Medication Sig Dispensed Refills Start Date End Date Status Omeprazole 20 MG TBEC Take 20 mg by mouth daily. 0 Active montelukast (SINGULAIR) 10 MG tablet Take 1 tablet (10 mg total) by mouth continuous prn. 0 Active Albuterol Sulfate 108 (90 Base) MCG/ACT AEPB Inhale 2 puffs into the lungs continuous prn. 0 Active Fluticasone Furoate 200 MCG/ACT AEPB Inhale 220 mcg into the lungs 2 (two) times a day. 0 Active fluticasone (FLONASE) 50 MCG/ACT nasal spray spray/apply 2 sprays in each nostril continuous prn. 0 Active sertraline (ZOLOFT) 100 MG tablet TAKE 1 TABLET BY MOUTH EVERY DAY 30 tablet 1 12/04/2022 Active ondansetron (Zofran) 4 MG tablet Take 1 tablet (4 mg total) by mouth every 6 (six) hours as needed for nausea. 30 tablet 0 04/20/2023 Active ergocalciferol (VITAMIN D2) capsule 86626 units Take 1 capsule (50,000 Units total) by mouth once a week. 12 capsule 2 01/06/2024 Active Acetaminophen Extra Strength 500 MG TABS TAKE 1 TABLET (500 MG TOTAL) BY MOUTH EVERY 6 (SIX) HOURS NEEDED. FOR PAIN 90 tablet 1 06/13/2024 Active gabapentin (NEURONTIN) 400 MG capsule TAKE 1 CAPSULE BY MOUTH THREE TIMES A DAY 90 capsule 2 06/13/2024 Active oxyCODONE (ROXICODONE) 5 MG immediate release tablet Take 1 tablet (5 mg total) by mouth 2 (two) times a day as needed for pain. 60 tablet 0 07/13/2024 Active Active Problems Problem Noted Date Diagnosed Date Vitamin D deficiency 12/02/2023 Intractable pain 09/01/2023 TIA (transient ischemic attack) 10/28/2022 Palpitations 10/28/2022 Weight loss 09/05/2021 Acute nonintractable headache 09/05/2021 History of laparoscopic partial gastrectomy 11/2020 Neck pain 02/10/2020 Cervical disc disease 12/09/2019 Cellulitis 04/22/2019 Cough 03/02/2019 Acute non-recurrent frontal sinusitis 02/24/2019 Inguinal adenopathy 12/31/2018 MRSA carrier 12/31/2018 Abscess, gluteal, left 12/24/2018 Other fatigue 12/16/2018 Memory loss 12/16/2018 Other insomnia 12/16/2018 Malignant lymphoma, Hodgkin's type 10/27/2018 Anemia in neoplastic disease 10/27/2018 Iron deficiency anemia due to chronic blood loss 10/27/2018 Pain of upper abdomen 10/27/2018 Nausea 10/27/2018 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 Stage III disease, bone marrow testing negative for lymphoma. ersistent symptoms started in June 06 018 lymphadenopathy was noticed in August 2018, in [...] in consultation to Dr. Dexter Lind at [facility], [place], [place]. See end of report for his interpretation. [...] of approximately 10% lymphocytes. Immunohistochemistry performed at [facility], [place], [place], shows that the large abnormal cells are positive for BOB1 and OCT2. IN-SITU HYBRIDIZATION: EBV-encoded RNA (SABRINA) MARION is positive in the large abnormal cells. Lymphoma of lymph nodes of multiple regions 05/2019 Lymphadenopathy 10/12/2018 Night sweats 10/12/2018 Anxiety 10/12/2018 Microcytic anemia 10/12/2018 Gastroesophageal reflux disease with esophagitis 10/12/2018 Class 3 severe obesity due t o excess calories without serious comorbidity with body mass index (BMI) of 40.0 to 44.9 in adult 10/12/2018 Social History Tobacco Use Types Packs/Day Years Used Date Smoking Tobacco: Former Smokeless Tobacco: Never Alcohol Use Standard Drinks/Week Comments No 0 (1 standard drink = 0.6 oz pur e alcohol) Sex and Gender Information Value Date Recorded Sex Assigned at Not on file Gender Identity Not on file Sexual Orientation Not on file Job Start Date Occupation Industry Not on file Not on file Not on file Last Filed Vital Signs Vital Sign Reading Time Taken Comments Blood Pressure 130/73 04/04/2024 3:59 PM EDT Pulse 73 04/04/2024 3:59 PM EDT Temperature 36.4 ??C (97.6 ??F) 04/04/2024 3:59 PM ED T Respiratory Rate - - Oxygen Saturation 100% 04/04/2024 3:59 PM EDT Inhaled Oxygen Concentration - - Weight 82.4 kg (181 lb 9.6 oz) 04/04/2024 3:59 P M EDT Height 157.5 cm (5' 2 ) 12/02/2023 9:08 AM EST Body Mass Index 33.22 12/02/2023 9:08 AM EST Plan of Treatment Health Maintenance Due Date Last Done Comments Hepatitis C Screening 1978 Depression Screening 1990 BMI Counseling 1996 Preventative Health Evaluation 1996 Cervical Cancer Screening (Pap Smear) 1999 Hepatitis B Vaccines (3 of 3 - 19+ 3-dose series) 07/19/2014 05/24/2014, 12/16/2007 Pneumococcal Vaccine (2 of 2 - PCV) 11/14/2014 11/14/2013 DTap / Tdap / Td (2 - Td or Tdap) 12/15/2017 12/16/2007 Colon Cancer Screening (Colonoscopy) 2023 COVID-19 Vaccine ( season) 2024 07/09/2021, 11/28/2020, 11/07/2020 Influenza Vaccine (#1) 2024 , 06/25/2021, 08/05/2020, Additional history exists RSV Ped < 20 months Aged Out No longe r eligible based on patient's age to complete this topic Care Teams Trading Floor Operator Relationship Specialty Start Date End Date Fabio Moe, PARanjitC PCP - General Medical Services 06/06/21
== END 2024-11-01 06:09 | disposition home or self-care (01) ==
LOC: CF 06:08
PROVIDERS: Visit Provider Anesthesiology
DX: M47.816 Spondylosis without myelopathy or radiculopathy, lumbar region (principal)
CPT/HCPCS: 64493; 64494; J2003; J2795; Q9967

== ENCOUNTER 2024-11-01 07:15 | Outpatient (AMB) | payer OTHER, SELFPAY ==
--- OUTSIDE RECORDS SUMMARY | 2024-11-01 07:17 | XMS_ITS | Clinical Summary ---
Author Organization [facility] Address [address] [place] [address] Care Team Providers Care Bearing Maker Name Role Phone Fabio Moe Primary Care Provider [phone] Allergies No known active allergies Medications acetaminophen [...] propionate (FLONASE) 50 mcg/actuation nasal spray SMARTSI Iroquois(s) Both Nares Daily Active gabapentin (NEURONTIN) 400 [...] this topic Insurance [employer] Care Teams Bearing Maker Relationship Specialty Start Date End Date Fabio Moe PCP - General Internal Medicine 01/18/24
--- OUTSIDE RECORDS SUMMARY | 2024-11-01 07:17 | XMS_ITS | Clinical Summary ---
Author Organization [facility] Address [address] [place] [address] Care Team Providers Care Coding Support Specialist Name Role Phone Fabio Moe Primary Care Provider [phone] Allergies No known active allergies Medications Medication [...] in consultation to Dr. Dexter Lind at [facility], [place], [place]. See end of report for his [...] of approximately 10% lymphocytes. Immunohistochemistry performed at [facility], [place], [place], shows that the large abnormal cells [...] and seal with coconut oil, and follow [facility] guidelines. PATRICK (obstructive sleep apnea) [...] Description 10/12/2024 11:45 AM EST Office Visit [facility] Hematology Oncology [address] [place] [phone] Gagandeep Wright MD 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 (CMS/HCC) (Primary Dx); Iron deficiency anemia due to chronic blood loss; Anemia in neoplastic disease; Intractable pain; Neck pain; Fibromyalgia; PATRICK (obstructive sleep apnea) 09/19/2024 11:15 AM EST Office Visit Obstetrics and Gynecology - [address] [phone] Constance Canales CNM Vaginal discharge (Primary Dx); Vaginal odor; Vulvar itching; Urinary frequency 09/16/2024 Telephone Obstetrics and Gynecology - [address] [phone] Fahad Wright MD Vaginal Itching from Last 3 Months Immunizations Name Administration Dates Next Due H1N1 Inj Preservative Free 07/31/2009 HPV 9-valent (Gardisil) 9yo to less than 46yo 05/02/2021,12/26/2020,06/27/2020 Hepatitis B (Wzqrxzs-A-Noxgd , Recombivax HB-Adult) 19yo and older 05/24/2014,12/16/2007 [...] LIGATION UPPER GASTROINTESTINAL ENDOSCOPY 12/31/17 Stephan PROCEDURE: MS UPPER GI ENDOSCOPY PERFORMED; COMMENT: erosions and erythema antrum and bulb; nl esophagus, but free flow of gastric contents. Active duodenitis with H. pylori; chronic gastritis with H. pylori OTHER SURGICAL HISTORY 11/2018 PROCEDURE: BONE MARROW BIOPSY; COMMENT: negative for disease in setting of Hodgkin Lymphoma OTHER SURGICAL HISTORY PROCEDURE: MS CHEMOTX ADMN PERTL CAVITY IMPLANTED PORT/CATH; COMMENT: [...] care for your loved ones. For example, director of child welfare services or elderly care for an older adult? [...] Epidur al Livin g Ludwig Machado Delivery Location:[facility] 1995 Term 40w 0d 3h 00m/ 2835 g (100 oz) M Vag-S pont Livin g Ladonna o Machado Delivery Location:[facility] 1997 SAB 1998 Term 40w 0d 4h 00m/ 2778 g (98 oz) F Vag-S pont Livin g Mireli a Machado Delivery Location:[facility] 2004 IAB 2008 Term 39w 2d 13h 00m/ 3430 g (121 oz) F Vag-S pont Epidur al Livin g 8 9 Bello Burgos on, CNM Delivery Location:[facility] 2010 Term 40w 3d 7h 52m/ 3402 g (120 oz) M Vag-S pont None Livin g 5 8 quinten flores Delivery Location:[facility] Last Filed Vital Signs Vital Sign Reading [...] EST Office Visit [facility] [place] [address] [place], [place] [phone] Fabio Moe PA [address] [place], [place] 11/14/2024 10:30 AM EST Office Visit [facility] Hematology Oncology [address] [place] [phone] Gagandeep Wright MD [address] [place] [phone] 11/24/2024 10:55 AM EST Appointment Radiology Department - [address] [phone] 12/13/2024 3:30 PM EDT Ancillary Procedure [facility] - [facility] [address] [facility] Jace [address] [place] [phone] 12/19/2024 7:30 AM EDT Hospital Encounter [facility] Main OR [address] [place] [phone] Kyara Castillo MD [address] [place] [address] 12/19/2024 7:30 AM EDT - 12/19/2024 10:30 AM EDT Surgery [address] [phone] Kyara Castillo MD [address] [place] [address] ABDOMINOPLASTY & PANNICULECTOMY [[id number] (CPT??) +1 more] Scheduled Procedures Name Priority [...] Urine No growth 09/20/2024 7:59 AM EST [facility] Urine Urine specimen obtained by clean catch procedure / Unknown Non-blood Collection / Unknown 09/19/2024 11:54 AM EST 09/19/2024 11:54 AM EST Constance Graysonanthonyerenidra [facility] MICROBIOLOGY - GENERAL ORDERABLES [facility] [address] [place] [address], * DIAGNOSTIC MAMMOGRAPHY INCLUDING CAD BILATERAL (11/16/2023 [...] Recently Relevant to Health Maintenance Care Teams Coding Support Specialist Relationship Specialty Start Date End Date Fabio Moe PA [address] [place] [address] PCP - General Internal Medicine 04/23/20
--- OUTSIDE RECORDS SUMMARY | 2024-11-01 07:17 | XMS_ITS | Encounter Summary ---
Author Organization [facility] Address [address] [place] [address] Care Team Providers Care Tool And Cutter Grinder Name Role Phone Fabio Moe Primary Care Provider [phone] Reason for Visit * Reason Comments Follow-up Encounter Details Date Type Department Care Team (Late st Contact Info) Description 10/12/2024 11:45 AM EST Office Visit [facility] Hematology Oncology [address] [place] [phone] Gagandeep Wright MD [address] [place] [phone] Mixed cellularity Hodgkin lymphoma of lymph nodes [...] for your loved ones. For example, child and family therapist or elderly care for an older adult? [...] 2024- please refer to notes from prior [facility] [place] EMR last note dated 04/04/2024 Patient is more than 5 years from completion of 6 months of ABVD regimen for stage III classical Hodgkin lymphoma. Patient reports ongoing issues with generalized pain. She had evaluation at [facility], received injections and finally has a diagnosis of fibromyalgia. She is following with pain management in [place] who is trying to schedule her for [...] the interim she had rheumatology evaluation at [facility], and underwent injection to the left trochanter bursa with partial relief. She has gained about 10 pounds in weight. Neck pain is well-controlled with oxycodone on most days except during the later part of the week. No recent surgeries. 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 Due for lab work, restaging imaging, will [...] Asthma 11/14/2013 Diabetes mellitus type 2, uncomplicated ([facility]) 10/25/2018 Functional dyspepsia 06/01/2018 Gallbladder polyp 12/17/2015 Hepatomegaly 12/17/2015 History of laparoscopic partial gastrectomy 03/06/2021 Hodgkin lymphoma ([facility]) 10/20/2018 Hyperlipidemia 08/09/2017 Lichen simplex chronicus 12/09/2012 Mild ascending aorta dilation ([facility]) 12/28/2023 MRSA carrier 12/31/2018 PATRICK (obstructive sleep apnea) 12/09/2011 Overweight (BMI 25.0-29.9) 06/13/2022 Recurrent vaginitis 10/26/2023 Trochanteric bursitis of both hips 02/02/2024 Cervical disc herniation 12/09/2019 Fibromyalgia 02/02/2024 Palpitations 10/28/2022 TIA (transient ischemic attack) 10/28/2022 Resolved Ambulatory Problems Diagnosis Date Noted Anxiety 10/12/2018 Lymphoma of lymph nodes of multiple regions ([facility]) 10/12/2018 Microcytic anemia 10/12/2018 Palpitations 10/28/2022 TIA (transient ischemic attack) 10/28/2022 Dysuria 06/03/2021 GERD (gastroesophageal reflux disease) 04/25/2011 Intractable pain 09/01/2023 Iron deficiency anemia 12/10/2022 Past Medical History: Diagnosis Date Acanthosis nigricans 12/09/2012 Menorrhagia with regular cycle 09/13/2018 Morbid obesity with BMI of 45.0-49.9, adult ([facility]) 12/09/2011 Port-A-Cath in place 11/09/2019 SOCIAL HISTORY: [...] cervical disc prolapse Continue follow-up with neurosurgery, [facility] - had partial relief [...] 12:30 PM EST Office Visit [facility] [address] [place] [phone] Fabio Moe PA [address] [place] [address] 11/14/2024 10:30 AM EST Office Visit [facility] Hematology Oncology [address] [place] [phone] Gagandeep Wright MD [address] [place] [phone] 11/24/2024 10:55 AM EST Appointment Radiology Department - [address] [phone] 12/13/2024 3:30 PM EDT Ancillary Procedure [facility] - [address] [facility] Jace [address] [place] [phone] 12/19/2024 7:30 AM EDT Hospital Encounter [facility] Main OR [address] [place] [phone] Kyara Castillo MD [address] [place] [address] 12/19/2024 7:30 AM EDT - 12/19/2024 10:30 AM EDT Surgery [address] [phone] Kyara Castillo MD [address] [place] [address] ABDOMINOPLASTY & PANNICULECTOMY [[id number] (CPT??) +1 more] Scheduled Procedures Name Priority [...] documented as of this encounter Care Teams Tool And Cutter Grinder Relationship Specialty Start Date End Date Fabio Moe PA [address] [place] [address] PCP - General Internal Medicine 04/23/20 documented as of this encounter
--- OUTSIDE RECORDS SUMMARY | 2024-11-01 07:17 | XMS_ITS | Clinical Summary ---
Author Organization [facility] Address [address] [place] [address] Care Team Providers Care Entry Level Recruiter Name Role Phone Fabio Moe PA-C Primary [...] 0 04/20/2023 Active ergocalciferol (VITAMIN D2) capsule 44410 units Take 1 capsule (50,000 Units total) [...] in consultation to Dr. Dexter Lind at [facility], [place], [place]. See end of report for his interpretation. [...] of approximately 10% lymphocytes. Immunohistochemistry performed at [facility], [place], [place], shows that the large abnormal cells [...] age to complete this topic Care Teams Entry Level Recruiter Relationship Specialty Start Date End Date Fabio Moe, PARanjitC PCP - General Medical Services 06/06/21
[2024-11-01 07:22] VITALS: BP 136/79; PULSE 80; RESP 16; O2SAT 98
--- NOTE | 2024-11-01 07:22 | A.OFFVIS_ITS ---
Vital Signs 11/01/24 07:22 11/01/24 07:59 BP 136/79 151/68 H Blood Pressure Location Lt brachial Lt brachial Position Sitting Sitting Respiration 16 16 Pulse 80 69 Pulse Source Pulse Oximeter Pulse Oximeter Pulse Oximetry (%) 98 98 Oxygen Delivery Method Room Air Room Air Intake Visit Reasons: BILATERAL DIAGNOSTIC L3, L4, DRL5 MBB Allergies No Known Allergies Allergy (Verified 11/01/24 07:23) Medication List - Last Reconciled 11/01/24 by Gerda Bhandari LPN acetaminophen 1,000 mg PO Q6H PRN atorvastatin 20 mg PO DAILY cetirizine (Zyrtec) 10 mg PO DAILY PRN cyanocobalamin (vitamin B-12) 1,000 mcg sublingual DAILY docusate sodium (Colace) 100 mg PO BID ferrous fumarate 325 mg PO BID fluticasone propion-salmeterol 250-50 mcg/dose (Advair Diskus) 1 inh inhalation BID fluticasone propionate 50 mcg/actuation 2 sprays intranasal DAILY gabapentin 400 mg PO BID lidocaine 5% 1 patch topical DAILY loratadine 10 mg PO DAILY lorazepam 0.5 mg PO BEDTIME PRN methocarbamol 500 mg PO TID omeprazole 20 mg PO BID ondansetron HCl 8 mg PO Q8H oxycodone 5 mg PO Q4H PRN polyethylene glycol 3350 (Miralax) 17 grams PO BID sertraline (Zoloft) 100 mg PO DAILY thiamine HCl (vitamin B1) 50 mg PO DAILY tizanidine 2 mg PO TID PRN trazodone 50 mg PO DAILY PFSH Medical History GERD (gastroesophageal reflux disease) Obstructive sleep apnea (adult) (pediatric) Lichen simplex chronicus Asthma Polyp of gallbladder Hyperlipidemia, unspecified Functional dyspepsia Hodgkin lymphoma Type 2 diabetes mellitus without complications Abnormal chest x-ray Vitamin D deficiency MRSA carrier Cervical disc herniation Vulvar itching Anxiety and depression Dysuria Low libido Overweight (BMI 25.0-29.9) Iron (Fe) deficiency anemia Surgical History Bariatric surgery status Physical Exam Vital Signs: Last Vital Signs Pulse 69 11/01/24 07:59 Resp 16 11/01/24 07:59 BP 151/68 H 11/01/24 07:59 Pulse Ox 98 11/01/24 07:59 Oxygen Delivery Method Room Air 11/01/24 07:59 Assessment & Plan Assessment & Plan (1) Chronic pain after cancer treatment: Code(s): G89.3 - Neoplasm related pain (acute) (chronic) Category: Medical (2) Lumbar spondylosis: Code(s): M47.816 - Spondylosis without myelopathy or radiculopathy, lumbar region Category: Medical (3) Cervical spondylosis: Code(s): M47.812 - Spondylosis without myelopathy or radiculopathy, cervical region Category: Medical Plan Diagnostic medial branch block L3,L4 dorsal ramus L5 bilateral.? ? Informed consent was explained to the patient. Risks and benefits were explained. The risks were explained as bleeding, infection, peripheral nerve damage, spinal cord damage and infection and headache. All questions were explained and? answered.? The patient was taken inside the operating room where he was positioned prone on the operating table. Time-out was performed delineating correct site, side, the nature of the procedure, patient's allergy, . All operating room staff was participating in OR time-out procedure. ? ? The lower back was prepped with ChloraPrep and draped with sterile towels.? C- arm was brought over the operating field and sq picture of L4-, L5 vertebra and S1 AREA were delineated on the screen.? Point of interest were delineated as confluence of superior articular process of L4 and L5 vertebra bilaterally with corresponding transverse processes as well as confluence of the sacral alae bilaterally with superior articular process of S1.? The projection of the point of interest to the skin were injected with the small amount of local anesthetic lidocaine 2% mixed with ropivacaine 0.5% 1-1 approximately 1 cc. After that 22 gauge 3.5 inch spinal needle was driven sequentially to the points of interest in tunnel vision fashion. After needles gently contacted the bone at the point of interests the needle was injected with small amount of the contrast.? The injection of the contrast did not demonstrate any intravascular or intrathecal spread of the contrast.? After that injection of the? ropivacaine 0.5%-1cc? was performed at each needle location.?after completion of the injections the needles were removed and Bandaids were applied. The patient tolerated procedure well. Orders: Orders FL guidance in treatment room Today M47.816 - Spondylosis without myelopathy or radiculopathy, lumbar region Coding Level of Care Code Procedure Only Diagnoses Chronic pain after cancer treatment G89.3 Lumbar spondylosis M47.816 Cervical spondylosis M47.812
[2024-11-01 07:59] VITALS: BP 151/68; PULSE 69; RESP 16; O2SAT 98
== END 2024-11-01 07:58 | disposition home or self-care (01) ==
LOC: HO.PMCPRC 07:15
PROVIDERS: PCP Internal Medicine Endocrinology, Diabetes & Metabolism; Visit Provider Anesthesiology
DX: G89.3 Neoplasm related pain (acute) (chronic) (principal); M47.816 Spondylosis without myelopathy or radiculopathy, lumbar region; M47.812 Spondylosis without myelopathy or radiculopathy, cervical region
CPT/HCPCS: 64493; 64494

== ENCOUNTER 2024-11-04 08:33 | Outpatient (AMB) | payer OTHER, SELFPAY ==
--- NOTE | 2024-11-04 08:41 | A.OFFVIS_ITS ---
Vital Signs 11/04/24 08:44 Height 5 ft 1 in Weight 183 lb BMI 34.6 BP 145/89 H Blood Pressure Location Lt brachial Position Sitting Pulse 65 Pulse Source Pulse Oximeter Intake Visit Reasons: BILATERAL DIAGNOSTIC L3, L4, DRL5 MBB Intake Note: Pain today 2/10 Dowel Pointer Required: No Accompanied by: Self / Same As Patient Allergies No Known Allergies Allergy (Verified 11/04/24 08:45) HPI Comments Details: Patient presents back to the office today for follow-up, 3 days status post bilateral diagnostic L3-L4 DR L5 medial branch blocks Endorses 70% pain relief for at least 6 hours after the injection. Denies any untoward effects. Patient continues on oxycodone, gabapentin, Tylenol, duloxetine, tizanidine. She was also just started on morphine by her oncologist. Pain today is rated as a 2/10 Prior: Patient presents back to the office today for follow-up bilateral lower back pain At last visit she endorse 70% pain relief after right-sided medial branch blocks, booking order for left side was placed but as of today no approval has been received from the insurance company. She was then lost to follow-up. Now having bilateral lower back pain, rated today as 4/10 She has been taking oxycodone, gabapentin, Tylenol, duloxetine, tizanidine and using lidocaine patches all without improvement of her pain. She completed physical therapy and continues with home exercise program but pain persists Prior: Patient presents back to the office today for follow-up, status post right diagnostic L3-L4 DR L5 MBB with local anesthetic. She reports approximately 70% pain relief after the injection, with improvement in functional mobility. She states she is able to do housework at home that normally she would not be able to do including washing dishes. Since the procedure she reports worsening of her left sided lower back pain. She would like to attempt diagnostic injections for that side and hopefully proceed with bilateral sprint PNS She has been taking the tizanidine with good effect, she would like to continue on this medication Intake visit: Igor is a very pleasant 43-year-old female who presents the office today for evaluation management of her chronic diffuse all-over pain. Patient reports the pain started after she underwent chemotherapy to treat Hodgkin's lymphoma in 2019. Patient complains of pain ?from neck to ankles?. She states her worst pain is her right neck/shoulder and right lower back. Today would like to focus on lower back pain. Patient endorses pain to right lower back can worse with movement and tender to palpation. Endorses muscle spasm. Denies radiation of the pain down the extremities. Patient reports that she has a recent EMG and lumbar MRI at [place], releases signed for record request. Patient completed physical therapy, she continues doing home exercise program as instructed on discharge from PT. She has a MDM SR at home that helps her with the home exercise. Patient has exhausted medication attempts including muscle relaxers, gabapentin, Tylenol and prescription opioids. She is not able to take nonsteroidal anti- inflammatory medications due to previous gastric ulcer. Pain today is rated as a 4/10, aching, stabbing, pins and needles. Denies red flag symptoms. In terms of muscle damage condition is described as aching, spasming, hot, burning, shooting, dull, tiring, cramping, squeezing, numb, throbbing, stabbing, sharp, tingling, pins and needles Pain is negatively impacting patient's enjoyment of life, general activity, mood, normal work, recreational activities, relationships with people, sleep and walking. She has imaging coming up November 16 for her left breast, recently found a jamie mp. She also has an upcoming echo and stress test in November as she has been having fluttering in her chest. She will be seeing rheumatology in [place] in the next couple of weeks, she saw Rheumatology at [place] but requested her PCP refer her elsewhere. [facility] Medical History GERD (gastroesophageal reflux disease) Obstructive sleep apnea (adult) (pediatric) Lichen simplex chronicus Asthma Polyp of gallbladder Hyperlipidemia, unspecified Functional dyspepsia Hodgkin lymphoma Type 2 diabetes mellitus without complications Abnormal chest x-ray Vitamin D deficiency MRSA carrier Cervical disc herniation Vulvar itching Anxiety and depression Dysuria Low libido Overweight (BMI 25.0-29.9) Iron (Fe) deficiency anemia Surgical History Bariatric surgery status Review of Systems Const All systems reviewed & are unremarkable except as noted in HPI and below Physical Exam Vital Signs: Last Vital Signs Pulse 65 11/04/24 08:44 BP 145/89 H 11/04/24 08:44 BMI result Body Mass Index 34.6 General: awake, alert, oriented. Answers questions appropriately. Fully engaged in examination. Skin: warm, dry, intact HEENT: Normocephalic. Hearing intact. Cardiac: External chest normal in appearance. Respiratory: No cough, audible wheezing or stridor. Abdomen: without gross distension. MS: No obvious swelling or deformities. Neurological: Oriented to person, place, time and situation. Thought process intact. No gait abnormalities appreciated. Psychiatric: Appropriate mood and affect. Good judgment and insight. Assessment & Plan Assessment & Plan (1) Chronic pain after cancer treatment: Code(s): G89.3 - Neoplasm related pain (acute) (chronic) Category: Medical (2) Lumbar spondylosis: Code(s): M47.816 - Spondylosis without myelopathy or radiculopathy, lumbar region Category: Medical (3) Cervical spondylosis: Code(s): M47.812 - Spondylosis without myelopathy or radiculopathy, cervical region Category: Medical Plan Patient presented to the office today for follow-up 3 days status post bilateral diagnostic L3-L4 DR L5 medial branch blocks Endorses 70% pain relief for at least 6 hours after the injection with no untoward effects. Patient has exhausted conservative therapy including PT, home exercise program, [id number] medications, muscle relaxers, oxycodone and gabapentin. Discussed options for treatment including diagnostic interventional testing, therapeutic steroid injections, peripheral nerve stimulation with Sprint, RFA and more permanent neuromodulation. Informational pamphlets provided. Schedule for bilateral fluoroscopy guided L3 sprint PNS with local anesthetic. Will start with right side, left will follow after 2 weeks. All questions and concerns have been answered and patient agrees with the plan. Follow up after procedure, sooner if needed. Coding Level of Care Code Est Pt Level 3 (15230) Complex EM visit Add On G2211 Diagnoses Chronic pain after cancer treatment G89.3 Lumbar spondylosis M47.816 Cervical spondylosis M47.812
--- OUTSIDE RECORDS SUMMARY | 2024-11-04 08:42 | XMS_ITS | Encounter Summary ---
Author Organization [facility] Address [address] [place] [address] Care Team Providers Care Bow Maker Custom Name Role Phone Fabio Moe Primary Care Provider [phone] Reason for Referral * Consultation (Routine) - Authorized Specialty Diagnoses / Procedures Referred By Citlalli gallegos Referred To Contact Gastroenterology Diagnoses Right foot pain Anemia in neoplastic disease Acute non-recurrent frontal sinusitis Gastroesophageal reflux disease with esophagitis without hemorrhage Iron deficiency anemia due to chronic blood loss Mass of upper outer quadrant of left breast Vitamin D deficiency Anxiety and depression Type 2 diabetes mellitus without complication, without long-term current use of insulin (CMS/HCC) Hodgkin lymphoma, unspecified Hodgkin lymphoma type, unspecified body region (CMS/HCC) Mixed hyperlipidemia Mild ascending aorta dilation (CMS/HCC) Fabio Moe PA [address] [place] [address] [facility] Gastroenterology [address] [phone] Referral ID Status Reason Start Date Expiration Date Visits Requested Visits Authorized [id number] Authorized Specialty Services Required 11/02/2024 11/02/2025 1 1 * Consultation (Routine) - Authorized Specialty Diagnoses / Procedures Referred By Citlalli gallegos Referred To Contact Neurology Diagnoses Right foot pain Anemia in neoplastic disease Acute non-recurrent frontal sinusitis Gastroesophageal reflux disease with esophagitis without hemorrhage Iron deficiency anemia due to chronic blood loss Mass of upper outer quadrant of left breast Vitamin D deficiency Anxiety and depression Type 2 diabetes mellitus without complication, without long-term current use of insulin (CMS/HCC) Hodgkin lymphoma, unspecified Hodgkin lymphoma type, unspecified body region (CMS/HCC) Mixed hyperlipidemia Mild ascending aorta dilation (CMS/HCC) Fabio Moe PA [address] [place] [address] [facility] Neurodiagnostic [address] [place] [phone] Referral ID Status Reason Start Date Expiration Date Visits Requested Visits Authorized [id number] Authorized Specialty Services Required 11/02/2024 11/02/2025 1 1 Reason for Visit * Reason Comments Pain Discuss imaging Encounter Details Date Type Department Care Team (Late st Contact Info) Description 11/02/2024 12:30 PM EST Office Visit Adult Medicine [address] [phone] Fabio Moe PA [address] [place] [phone] Right foot pain (Primary Dx); Anemia in neoplastic disease; Acute non-recurrent frontal sinusitis; Gastroesophageal reflux disease with esophagitis without hemorrhage; Iron deficiency anemia due to chronic blood loss; Mass of upper outer quadrant of left breast; Vitamin D deficiency; Anxiety and depression; Type 2 diabetes mellitus without complication, without long-term current use of insulin (CMS/HCC); Hodgkin lymphoma, unspecified Hodgkin lymphoma type, unspecified body region (CMS/HCC); Mixed hyperlipidemia; Mild ascending aorta dilation (CMS/HCC); Chemotherapy-induced neuropathy (CMS/HCC) Social History Tobacco Use Types Packs/Day Years [...] loved ones. For example, child and family services specialist or elderly care for an older adult? [...] Sign Reading Time Taken Comments Blood Pressure 120/80 11/02/2024 12:31 PM EST Pulse 78 11/02/2024 12:31 PM EST Temperature 36.3 ??C (97.3 ??F) 11/02/2024 1 2:31 PM EST Respiratory Rate 14 11/02/2024 12:3 1 PM EST Oxygen Saturation - - Inhaled Oxygen Concentration - - Weight 85.2 kg (187 lb 12.8 oz) 025 12:31 PM EST Height 154.9 cm (5' 1 ) 11/02/2024 12:3 1 PM EST Body Mass Index 35.48 11/02/2024 12:31 PM EST documented in this encounter Ordered Prescriptions Prescription Sig Dispensed Refills Start Date End Da te diclofenac (VOLTAREN) 1 % topical gel Apply 2 gram four times daily to affected joint 100 g 11/02/2024 gabapentin (NEURONTIN) 600 mg tablet Take 1 tablet (600 mg total) by mouth 3 (three) times a day. 90 each 11 11/02/2024 11/02/2025 documented in this encounter Progress Notes * KELLY Hawkins - 11/02/2024 12:30 PM EST CHIEF COMPLAINT: Pain (Discuss imaging) IDENTIFIER: Igor Jiménez is a 44 y.o. old female. HPI: This pleasant patient presents today for follow-up of chronic pain and neuropathic symptoms. It seems that this may be in part related to the history of chemotherapy. She has had a difficult time managing the pain. She does follow with oncology is being prescribed oxycodone and morphine also takes gabapentin. We discussed increasing this. She did have an injury to her right foot about 4 weeks agostill has pain along the fifth metatarsal area. ROS: GENERAL: Negative for malaise, significant weight loss and fever RESPIRATORY: No cough, wheezing or shortness of breath CARDIOVASCULAR: Negative for chest pain, leg swelling and palpitations MUSCULOSKELETAL: See HPI ENDOCRINE: Negative for cold or heat intolerance, polyuria, polydipsia and goiter NEURO: See HPI PAST MEDICAL HISTORY: Patient Active Problem List Diagnosis Date Noted Trochanteric bursitis of both hips 02/02/2024 Fibromyalgia 02/02/2024 Mild ascending aorta dilation (CMS/HCC) 12/28/2023 Mass of upper outer quadrant of left breast 10/26/2023 Recurrent vaginitis 10/26/2023 Intractable pain 09/01/2023 Palpitations 10/28/2022 TIA (transient ischemic attack) 10/28/2022 Overweight (BMI 25.0-29.9) 06/13/2022 Acute nonintractable headache 09/05/2021 Weight loss 09/05/2021 History of laparoscopic partial gastrectomy 03/06/2021 Anxiety and depression 11/22/2020 Neck pain 02/10/2020 Cervical disc disease 12/09/2019 Cervical disc herniation 12/09/2019 Vitamin D deficiency 07/20/2019 Cellulitis 04/22/2019 Abnormal chest x-ray 03/03/2019 Cough 03/02/2019 Acute non-recurrent frontal sinusitis 02/24/2019 Inguinal adenopathy 12/31/2018 MRSA carrier 12/31/2018 Abscess, gluteal, left 12/24/2018 Memory loss 12/16/2018 Other fatigue 12/16/2018 Other insomnia 12/16/2018 Anemia in neoplastic disease 10/27/2018 Iron deficiency anemia due to chronic blood loss 10/27/2018 Nausea 10/27/2018 Pain of upper abdomen 10/27/2018 Diabetes mellitus type 2, uncomplicated ([facility]) 10/25/2018 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 ([facility]/HCC) 10/20/2018 Hodgkin lymphoma ([facility]/HCC) 10/20/2018 Gastroesophageal reflux disease with esophagitis 10/12/2018 Lymphadenopathy 10/12/2018 Night sweats 10/12/2018 Functional dyspepsia 06/01/2018 Hyperlipidemia 08/09/2017 Gallbladder polyp 12/17/2015 Hepatomegaly 12/17/2015 Asthma 11/14/2013 Lichen simplex chronicus 12/09/2012 PATRICK (obstructive sleep apnea) 12/09/2011 Past Surgical History: Procedure Laterality Date ABDOMINAL SURGERY 02/2021 PROCEDURE: HISTORICAL ABDOMINAL SURGERY; COMMENT: sleeve gastrectomy dr. alfaro HYSTERECTOMY 12/17/2022 PROCEDURE: HISTORICAL VAGINAL HYSTERECTOMY W/O BSO; COMMENT: menorrhagia, adenomyosis- Eppsteiner OTHER SURGICAL HISTORY 11/2018 PROCEDURE: BONE MARROW BIOPSY; COMMENT: negative for disease in setting of Hodgkin Lymphoma OTHER SURGICAL HISTORY PROCEDURE: WA CHEMOTX ADMN PERTL CAVITY IMPLANTED PORT/CATH; COMMENT: Port A Cath TUBAL LIGATION PROCEDURE: HISTORICAL TUBAL LIGATION UPPER GASTROINTESTINAL ENDOSCOPY 12/31/17 Keira PROCEDURE: WA UPPER GI ENDOSCOPY PERFORMED; COMMENT: erosions and erythema antrum and bulb; nl esophagus, but free flow of gastric contents. Active duodenitis with H. pylori; chronic gastritis with H. pylori SOCIAL HISTORY: Social History Tobacco Use Smoking status: Former Current packs/day: 0.00 Average packs/day: 0.1 packs/day for 23.9 years (2.4 ttl pk-yrs) Types: Cigarettes Start date: 02/02/1994 Quit date: 01/03/2018 Years since quittin.8 Smokeless tobacco: Never Substance Use Topics Alcohol use: No FAMILY HISTORY: Family History Problem Relation Name Age of Onset Other (Other: HIV) Mother AIDS Breast cancer Maternal Grandmother 70's CAD Stroke Father skin cancer No Known Problems Sister x 4 healthy sisters No Known Problems Son x 3 healthy sons No Known Problems Daughter x 2 healthy daughters Family Status Relation Name Status Mother MGM 70's Father Alive Sister Alive Son Alive Daughter Alive No partnership data on file MEDICATIONS DISCONTINUED/REORDERED: There are no discontinued medications. ACTIVE MEDICATIONS: Outpatient Medications Marked as Taking for the 11/02/24 encounter (Office Visit) with KELLY Hawkins Medication Sig Dispense Refill acetaminophen (TYLENOL) 500 mg tablet TAKE 1 TABLET (500 MG TOTAL) BY MOUTH EVERY 6 (SIX) HOURS NEEDED FOR PAIN. 90 tablet 1 Advair HFA 230-21 mcg/actuation inhaler TAKE 1 PUFF BY MOUTH TWICE A DAY 36 each 1 albuterol sulfate 90 mcg/actuation aerosol powdr breath activated Inhale 2 puffs into the lungs continuous prn. ergocalciferol (VITAMIN D-2) 1,250 mcg (50,000 unit) capsule Take 1 capsule (50,000 Units total) bymouth once a week. ferrous sulfate 325 mg (65 mg elemental iron) tablet TAKE 1 TABLET BY MOUTH TWICE A DAY 180 tablet 1 fluticasone furoate (ARNUITY ELLIPTA) 200 mcg/actuation blister with device inhaler Inhale 220 mcg into the lungs 2 (two) times a day. fluticasone propionate (FLONASE) 50 mcg/actuation nasal spray Administer 2 sprays into each nostril1 (one) time each day. 48 mL 1 montelukast (SINGULAIR) 10 mg tablet TAKE 1 TABLET BY MOUTH EVERYDAY AT BEDTIME 90 tablet 1 morphine (MS CONTIN) 15 mg 12 hr tablet Take 1 tablet (15 mg total) by mouth every 12 (twelve) hours. Do not crush, chew, or split. Max Daily Amount: 30 mg 60 tablet 0 nystatin-triamcinolone (MYCOLOG II) ointment 2x/day to affected area as needed for itching for up to 14 days 30 g 2 omeprazole (PRILOSEC) 20 mg tablet,delayed release (DR/EC) Take 20 mg by mouth daily. ondansetron (ZOFRAN) 4 mg tablet Take 1 tablet (4 mg total) by mouth every 6 hours as needed. oxyCODONE (ROXICODONE) 5 mg immediate release tablet Take 1 tablet (5 mg total) by mouth every 8 (eight) hours if needed for severe pain. Max Daily Amount: 15 mg 90 tablet 0 sertraline (ZOLOFT) 100 mg tablet TAKE 1 TABLET BY MOUTH EVERY DAY traZODone (DESYREL) 50 mg tablet TAKE 1 TO 3 TABLET BY MOUTH AT BEDTIME NEEDED FOR SLEEP 90 tablet 5 Vitamin D3 25 mcg (1,000 unit) tablet TAKE 1 TABLET BY MOUTH EVERY DAY 90 tablet 1 ALLERGIES: No Known Allergies PHYSICAL EXAM: Visit Vitals BP 120/80 Pulse 78 Temp 36.3 ??C (97.3 ??F) (Temporal) Resp 14 Ht 1.549 m (61 ) Wt 85.2 kg (187 lb 12.8 oz) BMI 35.48 kg/m?? OB Status Hysterectomy Smoking Status Former BSA 1.84 m?? General appearance: alert and oriented, in no acute distress Lungs: clear to auscultation bilaterally Heart: regular rate and rhythm, S1, S2 normal, no murmur, click, rub or gallop Extremities: extremities normal, warm and well-perfused; no cyanosis, clubbing, or edema Neurologic: Grossly normal LABS/IMAGING: Labs X-ray foot IMPRESSION: 1. Right foot pain 2. Anemia in neoplastic disease 3. Acute non-recurrent frontal sinusitis 4. Gastroesophageal reflux disease with esophagitis without hemorrhage 5. Iron deficiency anemia due to chronic blood loss 6. Mass of upper outer quadrant of left breast 7. Vitamin D deficiency 8. Anxiety and depression 9. Type 2 diabetes mellitus without complication, without long-term current use of insulin ([facility]) 10. Hodgkin lymphoma, unspecified Hodgkin lymphoma type, unspecified body region ([facility]/HCC) 11. Mixed hyperlipidemia 12. Mild ascending aorta dilation ([facility]) PLAN: 1. Check some x-rays of the right foot, it is possible she could have had a fracture to the fifth metatarsal although I do not see any deformity or ecchymosis on exam. 2. Continues to struggle with chronic pain likely related to fibromyalgia and neuropathy we will increase the gabapentin to 600 mg 3 times a day follows with oncology and is prescribed opioid pain meds. We discussed some other treatment options as well. She does have a little bit of a tremor that developed will check thyroid and refer to neurology for further evaluation. 3. History of diabetes will update labs including A1c. 4. Blood pressure doing well continue present regimen. 5. Anxiety depression stable. 6. Hyperlipidemia, will update cholesterol levels. 7. History of anemia will monitor blood counts. Referral to GI for colonoscopy I have applied the code G2211 to this patient???s visit as the primary care provider dealing with (list the condition that is/are complex) leading to the extensive work up, and management associated with the medical care of this patient. This patient???s serious conditions and complex medical conditions also required several consultants needing management and coordination through my office. I have reviewed all information as it pertains to the management of this patient for final approval. Advised the patient to call me if any problems. Patient understands the plan. Patient is in agreement with the plan. documented in this encounter Plan of Treatment Upcoming Encounters Date Type Department Care Team (Late st Contact Info) Description 11/14/2024 10:30 AM EST Office Visit [facility] Hematology Oncology [address] [place] [phone] Pablo-Gagandeep Flores MD [address] [place] [phone] 11/24/2024 10:55 AM EST Appointment Radiology Department - [address] [phone] 12/13/2024 3:30 PM EDT Ancillary Procedure [facility] [address] [phone] 12/19/2024 7:30 AM EDT Hospital Encounter [facility] Main OR [address] [place] [phone] Kyara Castillo MD [address] [place] [address] 12/19/2024 7:30 AM EDT - 12/19/2024 10:30 AM EDT Surgery [facility] Main OR [address] [place] [phone] Kyara Castillo MD [address] [place] [address] ABDOMINOPLASTY & PANNICULECTOMY [10568 (CPT??) +1 more] 12/20/2024 9:40 AM EDT Office Visit Gastroenterology - 299 [facility] [address] [phone] Marie Caraballo, AUSTYN [address] [address] 05/02/2025 8:30 AM EDT Office Visit [facility] - [address] [phone] Fabio Moe, PA [address] [place] [address] Scheduled Procedures Name Priority Associated Diagnoses Date/Ti me ABDOMINOPLASTY Excessive and redundant skin and subcutaneous tissue Low back pain, unspecified 12/19/2024 7:30 AM EDT Scheduled Referrals Name Type Priority Associated Diagnoses Order Schedule Ambulatory referral to Neurology Outpatient Referral Routine Right foot pain Anemia in neoplastic disease Acute non-recurrent frontal sinusitis Gastroesophageal reflux disease with esophagitis without hemorrhage Iron deficiency anemia due to chronic blood loss Mass of upper outer quadrant of left breast Vitamin D deficiency Anxiety and depression Type 2 diabetes mellitus without complication, without long-term current use of insulin (CMS/HCC) Hodgkin lymphoma, unspecified Hodgkin lymphoma type, unspecified body region (CMS/HCC) Mixed hyperlipidemia Mild ascending aorta dilation (CMS/HCC) 1 Occurrences starting 11/02/2024 until 11/02/2025 Ambulatory referral to Gastroenterology Outpatient Referral Routine Right foot pain Anemia in neoplastic disease Acute non-recurrent frontal sinusitis Gastroesophageal reflux disease with esophagitis without hemorrhage Iron deficiency anemia due to chronic blood loss Mass of upper outer quadrant of left breast Vitamin D deficiency Anxiety and depression Type 2 diabetes mellitus without complication, without long-term current use of insulin (CMS/HCC) Hodgkin lymphoma, unspecified Hodgkin lymphoma type, unspecified body region (CMS/HCC) Mixed hyperlipidemia Mild ascending aorta dilation (CMS/HCC) 1 Occurrences starting 11/02/2024 until 11/02/2025 documented as of this encounter Results * Hepatitis C antibody (11/02/2024 1:33 PM EST) [facility] Hepatitis C Antibody Negative Negative LAB CHEMISTRY METHOD 11/02/2024 5:19 PM EST [facility] Blood Venous blood specimen / Unknown Venipuncture / Unknown 11/02/2024 1:33 PM EST 11/02/2024 1:33 PM EST Fabio MENDOZA LAB BLOOD ORDERAB LES [facility] [address] [place] [address], * Vitamin B12 (11/02/2024 1:33 PM EST) [facility] Vitamin B-12 283 250 - 900 pcg/mL LAB CHEMISTRY METHOD 11/02/2024 4:55 PM EST [facility] Blood Venous blood specimen / Unknown Venipuncture / Unknown 11/02/2024 1:33 PM EST 11/02/2024 1:33 PM EST Fabio MENDOZA LAB BLOOD ORDERAB LES Performing Organization Address City/[facility]/ZIP Co de Phone Number [facility] [address] [place] [address], [place] [phone] * (ABNORMAL) Iron and TIBC (11/02/2024 1:33 PM EST) Iron 30(L) 40 - 150 mcg/dL LAB CHEMISTRY METHOD 11/02/2024 4:32 PM EST [facility] TIBC 447 250 - 450 mcg/dL LAB CHEMISTRY METHOD 11/02/2024 4:32 PM EST [facility] Iron Saturation 7(L) 15 - 50 % LAB CHEMISTRY METHOD 11/02/2024 4:32 PM EST [facility] Blood Venous blood specimen / Unknown Venipuncture / Unknown 11/02/2024 1:33 PM EST 11/02/2024 1:33 PM EST Fabio MENDOZA LAB BLOOD ORDERAB LES Performing Organization Address City/[facility]/ZIP Co de Phone Number [facility] [address] [place] [address], [place] [phone] * Thyroid stimulating hormone with reflex to free t4 and free t3 (11/02/2024 1:33 PM EST) TSH 2.22 0.40 - 4.00 mcIU/mL LAB CHEMISTRY METHOD 11/02/2024 4:40 PM EST [facility] Blood Venous blood specimen / Unknown Venipuncture / Unknown 11/02/2024 1:33 PM EST 11/02/2024 1:33 PM EST Fabio MENDOZA LAB BLOOD ORDERAB LES Performing Organization Address City/[facility]/ZIP Co de Phone Number [facility] [address] [place] [address], [place] [phone] * Hemoglobin A1c (11/02/2024 1:33 PM EST) [facility] Hemoglobin A1C 5.8 <6.5 % LAB CHEMISTRY METHOD 11/02/2024 8:28 PM EST [facility] Mean Bld Glu Estim. 120 mg/dL LAB CHEMISTRY METHOD 11/02/2024 8:28 PM EST [facility] Blood Venous blood specimen / Unknown Venipuncture / Unknown 11/02/2024 1:33 PM EST 11/02/2024 1:33 PM EST Fabio MENDOZA LAB BLOOD ORDERAB LES Performing Organization Address [facility]/ZIP Co de Phone Number [facility] [address] [place] [address], [place] [phone] * Comprehensive metabolic panel (11/02/2024 1:33 PM EST) [facility] Sodium 137 133 - 145 mmol/L LAB CHEMISTRY METHOD 11/02/2024 4:[address] [facility] Potassium 3.8 3.5 - 5.5 mmol/L LAB CHEMISTRY METHOD 11/02/2024 4:[address] [facility] Chloride 108 96 - 110 mmol/L LAB CHEMISTRY METHOD 11/02/2024 4:[address] [facility] CO2 26 21 - 32 mmol/L LAB CHEMISTRY METHOD 11/02/2024 4:[address] [facility] Anion Gap 3 3 - 11 LAB CHEMISTRY METHOD 11/02/2024 4:[address] [facility] Glucose 94 70 - 100 mg/dL LAB CHEMISTRY METHOD 11/02/2024 4:[address] [facility] BUN 11 5 - 25 mg/dL LAB CHEMISTRY METHOD 11/02/2024 4:[address] [facility] Creatinine 0.53 0.50 - 1.10 mg/dL LAB CHEMISTRY METHOD 11/02/2024 4:[address] [facility] eGFR 116 >=60 mL/min/1. 73m2 LAB CHEMISTRY METHOD 11/02/2024 4:[address] [facility] Comment:Calculation based on the??Chronic Kidney Disease Epidemiology Collaboration (CKD-EPI) equation refit??without adjustment for race. BUN/Creatinine Ratio 20.8 LAB CHEMISTRY METHOD 11/02/2024 4:[address] [facility] Calcium 9.2 8.5 - 10.5 mg/dL LAB CHEMISTRY METHOD 11/02/2024 4:[address] [facility] AST (SGOT) 11 10 - 42 unit/L LAB CHEMISTRY METHOD 11/02/2024 4:[address] [facility] ALT (SGPT) 16 10 - 60 unit/L LAB CHEMISTRY METHOD 11/02/2024 4:[address] [facility] Alkaline Phosphatase 64 42 - 121 unit/L LAB CHEMISTRY METHOD 11/02/2024 4:[address] [facility] Total Protein 6.8 6.0 - 8.0 g/dL LAB CHEMISTRY METHOD 11/02/2024 4:[address] [facility] Albumin 3.7 3.2 - 5.0 g/dL LAB CHEMISTRY METHOD 11/02/2024 4:[address] [facility] Total Bilirubin 0.5 0.0 - 1.4 mg/dL LAB CHEMISTRY METHOD 11/02/2024 4:[address] [facility] Blood Venous blood specimen / Unknown Venipuncture / Unknown 11/02/2024 1:33 PM EST 11/02/2024 1:33 PM EST Fabio MENDOZA LAB BLOOD ORDERAB LES [facility] [address] [place] [address], [place] [phone] * Microalbumin creatinine urine ratio (11/02/2024 1:33 PM EST) Creatinine, Urine 99.0 mg/dL LAB CHEMISTRY METHOD 11/02/2024 4:55 PM EST [facility] Microalb, Ur 7.0 0.0 - 29.0 mg/L LAB CHEMISTRY METHOD 11/02/2024 4:55 PM EST [facility] Microalb/Creat Ratio 7 <30 mg/g creat LAB CHEMISTRY METHOD 11/02/2024 4:55 PM EST [facility] Urine Urine specimen obtained by clean catch procedure / Unknown Non-blood Collection / Unknown 11/02/2024 1:33 PM EST 11/02/2024 1:33 PM EST Fabio MENDOZA LAB URINE ORDERAB LES Performing Organization Address [facility] Co de Phone Number [facility] [address] [place] [address], [place] [phone] * (ABNORMAL) Lipid panel with reflex to direct LDL (11/02/2024 1:33 PM EST) Cholesterol 215(H) 0 - 200 mg/dL LAB CHEMISTRY METHOD 11/02/2024 4:55 PM EST [facility] Triglycerides 187(H) 0 - 150 mg/dL LAB CHEMISTRY METHOD 11/02/2024 4:55 PM EST [facility] HDL 63 >=40 mg/dL LAB CHEMISTRY METHOD 11/02/2024 4:55 PM EST [facility] LDL Calculated 115(H) 0 - 100 mg/dL LAB CHEMISTRY METHOD 11/02/2024 4:55 PM EST [facility] VLDL Cholesterol Jono 37.4 mg/dL LAB CHEMISTRY METHOD 11/02/2024 4:55 PM EST [facility] Non HDL Chol. (LDL+VLDL) 152(H) <145 mg/dL LAB CHEMISTRY METHOD 11/02/2024 4:55 PM EST [facility] Chol/HDL Ratio 3.4 0.0 - 4.4 LAB CHEMISTRY METHOD 11/02/2024 4:55 PM EST [facility] Blood Venous blood specimen / Unknown Venipuncture / Unknown 11/02/2024 1:33 PM EST 11/02/2024 1:33 PM EST Fabio MENDOZA LAB BLOOD ORDERAB LES [facility] [address] [place] [address], * XR Foot 3+ Views Right (11/02/2024 1:16 PM EST) Anatomical Region Laterality Modality Lower Extremities, Foot Right Radiogra phic Imaging 11/02/2024 7:29 PM EST Impressions 11/02/2024 7:31 PM EST No acute fracture or dislocation of the right foot. Small calcaneal spurs are present. -------- FINAL REPORT -------- Dictated By: Filiberto Martin Dictated Date: 11/02/2024 19:29 ET Assigned Physician: Filiberto Martin Reviewed and Electronically Signed By: Filiberto Martin Signed Date: 11/02/2024 19:31 ET Workstation ID: [id number] Transcribed By: Self Edit Transcribed Date: 11/02/2024 19:29 ET Narrative 11/02/2024 7:31 PM EST HISTORY: foot pain right foot pain lateral aspect TECHNIQUE: AP, lateral, and oblique radiographs of the right foot COMPARISON: None FINDINGS: ?? The foot demonstrates normal mineralization with no fracture or malalignment. ??The visualized articulations are normal. ??No significant soft tissue swelling is identified. ??Small calcaneal spurs are present. Procedure Note Filiberto Martin MD - 11/02/2024 HISTORY: foot pain right foot pain lateral aspect TECHNIQUE: AP, lateral, and oblique radiographs of the right foot COMPARISON: None FINDINGS: The foot demonstrates normal mineralization with no fracture ormalalignment. The visualized articulations are normal. No significantsoft tissue swelling is identified. Small calcaneal spurs are present. IMPRESSION: No acute fracture or dislocation of the right foot. Small calcaneal spurs are present. -------- FINAL REPORT -------- Dictated By: Filiberto Martin Dictated Date: 11/02/2024 19:29 ET Assigned Physician: Filiberto Martin Reviewed and Electronically Signed By: Filiberto Martin Signed Date: 11/02/2024 19:31 ET Workstation ID: [id number] Transcribed By: Self Edit Transcribed Date: 11/02/2024 19:29 ET Fabio MENDOZA IMG XR PROCEDURES documented in this encounter Visit Diagnoses Diagnosis Right foot pain- Primary Pain in soft tissues of limb Anemia in neoplastic disease Acute non-recurrent frontal sinusitis Gastroesophageal reflux disease with esophagitis without hemorrhage Iron deficiency anemia due to chronic blood loss Iron deficiency anemia secondary to blood loss (chronic) Mass of upper outer quadrant of left breast Vitamin D deficiency Anxiety and depression Type 2 diabetes mellitus without complication, without long-term current use of insulin (CMS/HCC) Hodgkin lymphoma, unspecified Hodgkin lymphoma type, unspecified body region (CMS/HCC) Mixed hyperlipidemia Mild ascending aorta dilation (CMS/HCC) Chemotherapy-induced neuropathy (CMS/HCC) Right foot pain Pain in soft tissues of limb Anemia in neoplastic disease Acute non-recurrent frontal sinusitis Gastroesophageal reflux disease with esophagitis without hemorrhage Iron deficiency anemia due to chronic blood loss Iron deficiency anemia secondary to blood loss (chronic) Mass of upper outer quadrant of left breast Vitamin D deficiency Anxiety and depression Type 2 diabetes mellitus without complication, without long-term current use of insulin (CMS/HCC) Hodgkin lymphoma, unspecified Hodgkin lymphoma type, unspecified body region (CMS/HCC) Mixed hyperlipidemia Mild ascending aorta dilation (CMS/HCC) Excessive and redundant skin and subcutaneous tissue Low back pain, unspecified documented in this encounter Additional Health Concerns Assessment Noted Time PHQ-9 Depression Total Score: 22 025 10:09 AM EST documented as of this encounter Care Teams Bow Maker Custom Relationship Specialty Start Date End Date Fabio Moe PA [address] [place] [address] PCP - General Internal Medicine 04/23/20 documented as of this encounter
--- OUTSIDE RECORDS SUMMARY | 2024-11-04 08:42 | XMS_ITS | Referral Summary ---
Author Organization [facility] Address [address] [place] [address] Care Team Providers Care Geomorphology Teacher Name Role Phone Fabio Moe Primary Care Provider [phone] Allergies No known active allergies Medications acetaminophen [...] propionate (FLONASE) 50 mcg/actuation nasal spray SMARTSI Hoven(s) Both Nares Daily Active gabapentin (NEURONTIN) 400 [...] on file Insurance [employer] Care Teams Geomorphology Teacher Relationship Specialty Start Date End Date Fabio Moe PCP - General Internal Medicine 01/18/24
--- OUTSIDE RECORDS SUMMARY | 2024-11-04 08:42 | XMS_ITS | Clinical Summary ---
Author Organization Patient Business Ser [facility] Address [address] [place] [address] Care Team Providers Care Highway Maintenance Crew Worker Name Role Phone Fabio Moe Primary Care Provider [phone] Allergies No known active allergies Medications Medication [...] each day. 48 mL 1 5 Active traZODone (DESYREL) 50 mg tabletIndication s:Syncope and collapse,Other chest pain TAKE 1 TO 3 TABLET BY MOUTH AT BEDTIME NEEDED FOR SLEEP 90 tablet 5 5 Active Vitamin D3 25 mcg (1,000 unit) tablet TAKE 1 TABLET BY MOUTH EVERY DAY 90 tablet 1 5 Active gabapentin (NEURONTIN) 600 mg tablet Take 1 tablet (600 mg total) by mouth 3 (three) times a day. 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 CHARLES/GULSHAN neg b/l. Discussed risks and benefits of [...] was sent in consultation to Dr. Dexter Lnid at [facility], [place], [place]. See end of report for his interpretation. [...] of approximately 10% lymphocytes. Immunohistochemistry performed at [facility], [place], [place], shows that the large abnormal cells [...] and seal with coconut oil, and follow [facility] guidelines. PATRICK (obstructive sleep apnea) 12/09/2011 Overview [...] Encounters Date Type Department Care Team Description 11/02/2024 1:00 PM EST - 11/02/2024 11:59 PM EST Hospital Encounter [facility] [address] [place] [address] Right foot pain; Anemia in neoplastic disease; Acute non-recurrent frontal [...] (CMS/HCC); Mixed hyperlipidemia; Mild ascending aorta dilation (CMS/HCC) Discharge Disposition: Home or Self Care 11/02/2024 12:30 PM EST Office Visit Adult Medicine [address] [phone] Fabio Moe PA Right foot pain (Primary Dx); Anemia in [...] Mixed hyperlipidemia; Mild ascending aorta dilation (CMS/HCC); Chemotherapy-induce d neuropathy (CMS/HCC) 10/12/2024 11:45 AM EST Office Visit [facility] Hematology Oncology [address] [place] [phone] Gagandeep Wright MD 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 ([facility]/HCC) (Primary Dx); Iron deficiency anemia due to chronic blood loss; Anemia in neoplastic disease; Intractable pain; Neck pain; Fibromyalgia; PATRICK (obstructive sleep apnea) 09/19/2024 11:15 AM EST Office Visit Obstetrics and Gynecology [address] [phone] Constance Canales CNM Vaginal discharge (Primary Dx); Vaginal odor; Vulvar itching; Urinary frequency 09/16/2024 Telephone Obstetrics and Gynecology [address] [phone] Fahad Amaral MD Vaginal Itching from Last 3 Months Immunizations Name Administration Dates Next Due H1N1 Inj Preservative Free 07/31/2009 HPV 9-valent (Gardisil) 9yo to less than 46yo 05/02/2021,12/26/2020,06/27/2020 Hepatitis B (Bsduloo-W-Yaztw , Recombivax HB-Adult) 19yo and older 05/24/2014,12/16/2007 [...] HISTORICAL TUBAL LIGATION UPPER GASTROINTESTINAL ENDOSCOPY 12/31/17 [place] PROCEDURE: NJ UPPER GI ENDOSCOPY PERFORMED; COMMENT: erosions and erythema antrum and bulb; nl esophagus, but free flow of gastric contents. Active duodenitis with H. pylori; chronic gastritis with H. pylori OTHER SURGICAL HISTORY 11/2018 PROCEDURE: BONE MARROW BIOPSY; COMMENT: negative for disease in setting of Hodgkin Lymphoma OTHER SURGICAL HISTORY PROCEDURE: NJ CHEMOTX ADMN PERTL CAVITY IMPLANTED PORT/CATH; COMMENT: [...] this removed 10/2018 Benign EMB 11/04/18 FAHAD AAMRAL MD Morbid obesity with BMI of 4 5.0-49.9, adult (CMS/HCC) 12/09/2011 DX:Morbid obesity with BMI o f 45.0-49.9, adult ([facility]) MRSA carrier 11/09/2019 DX:MRSA carrier PATRICK (obstructive [...] your loved ones. For example, child development instructor or elderly care for an older adult? [...] Epidur al Livin g Ludwig Machado Delivery Location:[facility] 1995 Term 40w 0d 3h 00m/ 2835 g (100 oz) M Vag-S pont Livin g Ladonna o Machado Delivery Location:[facility] 1997 SAB 1998 Term 40w 0d 4h 00m/ 2778 g (98 oz) F Vag-S pont Livin g Mireli a Machado Delivery Location:[facility] 2004 IAB 2008 Term 39w 2d 13h 00m/ 3430 g (121 oz) F Vag-S pont Epidur al Livin g 8 9 Bello Burgos on, CNM Delivery Location:[facility] 2010 Term 40w 3d 7h 52m/ 3402 g (120 oz) M Vag-S pont None Livin g 5 8 quinten burgos on Delivery Location:[facility] Last Filed Vital Signs Vital Sign Reading Time Taken Comments Blood Pressure 120/80 11/02/2024 12:31 PM EST Pulse 78 11/02/2024 12:31 PM EST Temperature 36.3 ??C (97.3 ??F) 11/02/2024 1 2:31 PM EST Respiratory Rate 14 11/02/2024 12:3 1 PM EST Oxygen Saturation 95% 10/12/2024 11: 51 AM EST Inhaled Oxygen Concentration - - Weight 85.2 kg (187 lb 12.8 oz) 025 12:31 PM EST Height 154.9 cm (5' 1 ) 11/02/2024 12:3 1 PM EST Body Mass Index 35.48 11/02/2024 12:31 PM EST Plan of Treatment Upcoming Encounters Date Type Department Care Team (Late st Contact Info) Description 11/14/2024 10:30 AM EST Office Visit [facility] Hematology Oncology [address] [place] [phone] Gagandeep Wright MD [address] [place] [phone] 11/24/2024 10:55 AM EST Appointment Radiology Department - [address] [phone] 12/13/2024 3:30 PM EDT Ancillary Procedure [facility] [address] [phone] 12/19/2024 7:30 AM EDT Hospital Encounter [facility] Main OR [address] [place] [phone] Kyara Castillo MD [address] [place] [address] 12/19/2024 7:30 AM EDT - 12/19/2024 10:30 AM EDT Surgery [facility] Main OR [address] [place] [phone] Kyara Castillo MD [address] [place] [address] ABDOMINOPLASTY & PANNICULECTOMY [84511 (CPT??) +1 more] 12/20/2024 9:40 AM EDT Office Visit Gastroenterology - 299 [facility] [address] [phone] Marie Caraballo, MAINFRAME SOFTWARE DEVELOPER [address] [address] 05/02/2025 8:30 AM EDT Office Visit Adult Medicine [facility] [address] [place] [address] Fabio Moe PA [address] [place] [address] Scheduled Procedures Name Priority Associated Diagnoses Date/Ti me ABDOMINOPLASTY Excessive and redundant skin and subcutaneous tissue Low back pain, unspecified 12/19/2024 7:30 AM EDT Health Maintenance Due Date Last Done Comments Diabetes: Annual Foot Exam 1988 Cervical Cancer Screening: HPV 1999 Hepatitis B Vaccines (3 of 3 - 19+ 3-dose series) 07/19/2014 05/24/2014, 12/16/2007 Pneumococcal Vaccine: Pediatrics (0 to 5 Years) and At-Risk Patients (6 to 64 Years) (2 of 2 - PCV) 11/14/2014 11/14/2013 Colorectal Cancer Screening: Colonoscopy 06/18/2020 HIV Screening 06/18/2020 COVID-19 Vaccine ( season) 2024 07/09/2021, 11/28/2020, 11/07/2020 Diabetes: Blood Sugar Control Test (HGBA1C) 05/02/2025 11/02/2024, 08/04/2024, 03/08/2024 Social Influencers of Health Screening 09/19/2025 09/19/2024 Diabetes: Annual Retina Eye Exam 10/11/2025 10/11/2024 Depression Screening 10/28/2025 10/28/2024 Diabetes: Annual Urine Albumin-Creatinine Ratio (uACR) 11/02/2025 11/02/2024 Diabetes: Annual GFR (Glomerular Filtration Rate) 11/02/2025 11/02/2024, 08/04/2024, 03/08/2024 Breast Cancer Screening 11/16/2025 11/16/19, 11/28/2022, 11/22/2021, Additional history exists DTaP,Tdap,and Td Vaccines (3 - Td or Tdap) 07/26/2028 07/26/2018, 12/16/2007 Cholesterol Screening (Lipid Panel) 11/02/2029 11/02/2024, 08/04/2024, 03/08/2024 MMR Vaccines Aged Out 05/27/2014 No longer eligi ble based on patient's age to complete this topic Varicella Vaccines Aged Out 05/27/2014 No longer eligible based on patient's age to complete this topic HPV Vaccines Completed 05/02/2021, 12/04, 06/27/2020 Influenza Vaccine Completed 08/03/2024, , 07/09/2021, Additional history exists Hepatitis C Screening Completed 11/02/2024 HIB Vaccines Aged Out No longer eligi [...] Procedure Name Priority Date/Time Associated Diagnosis Comments CBC WITH AUTO DIFFERENTIAL Routine 11/02/2024 1:33 PM EST Right foot pain Anemia in neoplastic disease [...] Mixed hyperlipidemia Mild ascending aorta dilation (CMS/HCC) LIPID PANEL WITH REFLEX TO DIRECT LDL Routine 11/02/2024 1:33 PM EST Right foot pain Anemia in neoplastic disease [...] Mixed hyperlipidemia Mild ascending aorta dilation (CMS/HCC) MICROALBUMIN CREATININE URINE RATIO Routine 11/02/2024 1:33 PM EST Right foot pain Anemia in neoplastic disease [...] Mixed hyperlipidemia Mild ascending aorta dilation (CMS/HCC) COMPREHENSIVE METABOLIC PANEL Routine 11/02/2024 1:33 PM EST Right foot pain Anemia in neoplastic disease [...] Mixed hyperlipidemia Mild ascending aorta dilation (CMS/HCC) HEMOGLOBIN A1C Routine 11/02/2024 1:33 PM EST Right foot pain Anemia in neoplastic disease [...] Mixed hyperlipidemia Mild ascending aorta dilation (CMS/HCC) CBC AND DIFFERENTIAL Routine 11/02/2024 1:33 PM EST Right foot pain Anemia in neoplastic disease [...] Mixed hyperlipidemia Mild ascending aorta dilation (CMS/HCC) THYROID STIMULATING HORMONE WITH REFLEX TO FREE T4 AND FREE T3 Routine 11/02/2024 1:33 PM EST Right foot pain Anemia in neoplastic disease [...] Mixed hyperlipidemia Mild ascending aorta dilation (CMS/HCC) IRON AND TIBC Routine 11/02/2024 1:33 PM EST Right foot pain Anemia in neoplastic disease [...] Mixed hyperlipidemia Mild ascending aorta dilation (CMS/HCC) VITAMIN B12 Routine 11/02/2024 1:33 PM EST Right foot pain Anemia in neoplastic disease [...] Mixed hyperlipidemia Mild ascending aorta dilation (CMS/HCC) HEPATITIS C ANTIBODY Routine 11/02/2024 1:33 PM EST Right foot pain Anemia in neoplastic disease [...] Mixed hyperlipidemia Mild ascending aorta dilation (CMS/HCC) XR FOOT 3+ VIEWS RIGHT Routine 1:16 PM EST Right foot pain Anemia in neoplastic disease [...] Mixed hyperlipidemia Mild ascending aorta dilation (CMS/HCC) POC WET MOUNT Routine 09/19/2024 11:59 AM EST Vaginal discharge Vaginal odor CULTURE URINE Routine 09/19/2024 11:54 AM EST Urinary frequency DIAGNOSTIC MAMMOGRAPHY INCLUDING CAD BILATERAL Routine 11/16/2023 2:27 PM EST Unspecified lump in the left breast, upper outer quadrant Personal history of Hodgkin lymphoma from Last 3 Months or Most Recently Relevant to Health Maintenance Results * Hepatitis C antibody (11/02/2024 1:33 PM EST) Pathologist [facility] Hepatitis C Antibody Negative Negative LAB CHEMISTRY METHOD 11/02/2024 5:19 PM EST [facility] Blood Venous blood specimen / Unknown Venipuncture / Unknown 11/02/2024 1:33 PM EST 11/02/2024 1:33 PM EST Fabio MENDOZA LAB BLOOD ORDERAB LES [facility] [address] [place] [address], * Thyroid stimulating hormone with reflex to free t4 and free t3 (11/02/2024 1:33 PM EST) Pathologist [facility] TSH 2.22 0.40 - 4.00 mcIU/mL LAB CHEMISTRY METHOD 11/02/2024 4:40 PM EST [facility] Blood Venous blood specimen / Unknown Venipuncture / Unknown 11/02/2024 1:33 PM EST 11/02/2024 1:33 PM EST Fabio MENDOZA LAB BLOOD ORDERAB LES [facility] [address] [place] [address], [place] [phone] * (ABNORMAL) Lipid panel with reflex to direct LDL (11/02/2024 1:33 PM EST) Pathologist [facility] Cholesterol 215(H) 0 - 200 mg/dL LAB CHEMISTRY METHOD 11/02/2024 4:55 PM EST [facility] Triglycerides 187(H) 0 - 150 mg/dL LAB CHEMISTRY METHOD 11/02/2024 4:55 PM EST [facility] HDL 63 >=40 mg/dL LAB CHEMISTRY METHOD 11/02/2024 4:55 PM EST [facility] LDL Calculated 115(H) 0 - 100 mg/dL LAB CHEMISTRY METHOD 11/02/2024 4:55 PM EST [facility] VLDL Cholesterol Jono 37.4 mg/dL LAB CHEMISTRY METHOD 11/02/2024 4:55 PM EST [facility] Non HDL Chol. (LDL+VLDL) 152(H) <145 mg/dL LAB CHEMISTRY METHOD 11/02/2024 4:55 PM EST [facility] Chol/HDL Ratio 3.4 0.0 - 4.4 LAB CHEMISTRY METHOD 11/02/2024 4:55 PM EST [facility] Blood Venous blood specimen / Unknown Venipuncture / Unknown 11/02/2024 1:33 PM EST 11/02/2024 1:33 PM EST Fabio MENDOZA LAB BLOOD ORDERAB LES [facility] [address] [place] [address], [place] [phone] * (ABNORMAL) CBC auto differential (11/02/2024 1:33 PM EST) WBC 5.9 4.8 - 10.8 K/mcL LAB HEMETOLOGY METHOD 11/02/2024 4:21 PM [facility] RBC 4.00 3.80 - 4.80 M/mcL LAB HEMETOLOGY METHOD 11/02/2024 4:21 PM [facility] Hemoglobin 11.0(L) 11.5 - 16.0 g/dL LAB HEMETOLOGY METHOD 11/02/2024 4:21 PM [facility] Hematocrit 34.0(L) 35.0 - 47.0 % LAB HEMETOLOGY METHOD 11/02/2024 4:21 PM [facility] MCV 85.6 79.0 - 98.0 FL LAB HEMETOLOGY METHOD 11/02/2024 4:21 PM [facility] MCH 27.7 27.0 - 32.0 pcg LAB HEMETOLOGY METHOD 11/02/2024 4:21 PM [facility] MCHC 32.4 32.0 - 37.0 g/dL LAB HEMETOLOGY METHOD 11/02/2024 4:21 PM [facility] RDW 13.3 11.0 - 15.0 % LAB HEMETOLOGY METHOD 11/02/2024 4:21 PM [facility] Platelets 326 130 - 400 K/mcL LAB HEMETOLOGY METHOD 11/02/2024 4:21 PM [facility] MPV 10.3 7.0 - 11.0 FL LAB HEMETOLOGY METHOD 11/02/2024 4:21 PM [facility] NRBC 0.0 <1.0 % LAB HEMETOLOGY METHOD 11/02/2024 4:21 PM [facility] NRBC Absolute 0.00 <0.10 K/mcL LAB HEMETOLOGY METHOD 11/02/2024 4:21 PM [facility] Neutrophils Relative 52.9 % LAB HEMETOLOGY METHOD 11/02/2024 4:21 PM [facility] Lymphocytes Relative 36.5 % LAB HEMETOLOGY METHOD 11/02/2024 4:21 PM [facility] Monocytes Relative 6.6 % LAB HEMETOLOGY METHOD 11/02/2024 4:21 PM [facility] Eosinophils Relative 3.0 % LAB HEMETOLOGY METHOD 11/02/2024 4:21 PM [facility] Basophils Relative 0.8 % LAB HEMETOLOGY METHOD 11/02/2024 4:21 PM [facility] Immature Granulocytes Relative 0.2 % LAB HEMETOLOGY METHOD 11/02/2024 4:21 PM [facility] Neutrophils Absolute 3.14 1.50 - 7.00 K/mcL LAB HEMETOLOGY METHOD 11/02/2024 4:21 PM [facility] Lymphocytes Absolute 2.17 1.00 - 5.00 K/mcL LAB HEMETOLOGY METHOD 11/02/2024 4:21 PM [facility] Monocytes Absolute 0.39 0.20 - 1.00 K/mcL LAB HEMETOLOGY METHOD 11/02/2024 4:21 PM [facility] Eosinophils Absolute 0.18 0.00 - 0.50 K/mcL LAB HEMETOLOGY METHOD 11/02/2024 4:21 PM [facility] Basophils Absolute 0.05 0.00 - 0.20 K/mcL LAB HEMETOLOGY METHOD 11/02/2024 4:21 PM [facility] Immature Granulocytes Absolute 0.01 0.00 - 0.03 K/mcL LAB HEMETOLOGY METHOD 11/02/2024 4:21 PM [facility] Blood Venous blood specimen / Unknown Venipuncture / Unknown 11/02/2024 1:33 PM EST 11/02/2024 1:33 PM EST Fabio MENDOZA LAB BLOOD ORDERAB LES [facility] [address] [place] [address], [place] [phone] * (ABNORMAL) Iron and TIBC (11/02/2024 1:33 PM EST) Iron 30(L) 40 - 150 mcg/dL LAB CHEMISTRY METHOD 11/02/2024 4:32 PM EST [facility] TIBC 447 250 - 450 mcg/dL LAB CHEMISTRY METHOD 11/02/2024 4:32 PM EST [facility] Iron Saturation 7(L) 15 - 50 % LAB CHEMISTRY METHOD 11/02/2024 4:32 PM EST [facility] Blood Venous blood specimen / Unknown Venipuncture / Unknown 11/02/2024 1:33 PM EST 11/02/2024 1:33 PM EST Fabio MENDOZA LAB BLOOD ORDERAB LES [facility] [address] [place] [address], [place] [phone] * Microalbumin creatinine urine ratio (11/02/2024 1:33 PM EST) Creatinine, Urine 99.0 mg/dL LAB CHEMISTRY METHOD 11/02/2024 4:55 PM EST [facility] Microalb, Ur 7.0 0.0 - 29.0 mg/L LAB CHEMISTRY METHOD 11/02/2024 4:55 PM EST [facility] Microalb/Creat Ratio 7 <30 mg/g creat LAB CHEMISTRY METHOD 11/02/2024 4:55 PM EST [facility] Urine Urine specimen obtained by clean catch procedure / Unknown Non-blood Collection / Unknown 11/02/2024 1:33 PM EST 11/02/2024 1:33 PM EST Fabio MENDOZA LAB URINE ORDERAB LES Performing Organization Address City/[facility]/ZIP Co de Phone Number [facility] [address] [place] [address], [place] [phone] * Hemoglobin A1c (11/02/2024 1:33 PM EST) [facility] Hemoglobin A1C 5.8 <6.5 % LAB CHEMISTRY METHOD 11/02/2024 8:28 PM EST [facility] Mean Bld Glu Estim. 120 mg/dL LAB CHEMISTRY METHOD 11/02/2024 8:28 PM EST [facility] Blood Venous blood specimen / Unknown Venipuncture / Unknown 11/02/2024 1:33 PM EST 11/02/2024 1:33 PM EST Fabio MENDOZA LAB BLOOD ORDERAB LES Performing Organization Address City/[facility]/ZIP Co de Phone Number [facility] [address] [place] [address], [place] [phone] * Vitamin B12 (11/02/2024 1:33 PM EST) [facility] Vitamin B-12 283 250 - 900 pcg/mL LAB CHEMISTRY METHOD 11/02/2024 4:55 PM EST [facility] Blood Venous blood specimen / Unknown Venipuncture / Unknown 11/02/2024 1:33 PM EST 11/02/2024 1:33 PM EST Fabio MENDOZA LAB BLOOD ORDERAB LES [facility] [address] [place] [address], [place] [phone] * Comprehensive metabolic panel (11/02/2024 1:33 PM EST) [facility] Sodium 137 133 - 145 mmol/L LAB CHEMISTRY METHOD 11/02/2024 4:55 PM [facility] Potassium 3.8 3.5 - 5.5 mmol/L LAB CHEMISTRY METHOD 11/02/2024 4:55 PM [facility] Chloride 108 96 - 110 mmol/L LAB CHEMISTRY METHOD 11/02/2024 4:55 PM [facility] CO2 26 21 - 32 mmol/L LAB CHEMISTRY METHOD 11/02/2024 4:55 PM [facility] Anion Gap 3 3 - 11 LAB CHEMISTRY METHOD 11/02/2024 4:55 PM [facility] Glucose 94 70 - 100 mg/dL LAB CHEMISTRY METHOD 11/02/2024 4:55 PM [facility] BUN 11 5 - 25 mg/dL LAB CHEMISTRY METHOD 11/02/2024 4:55 PM [facility] Creatinine 0.53 0.50 - 1.10 mg/dL LAB CHEMISTRY METHOD 11/02/2024 4:55 PM [facility] eGFR 116 >=60 mL/min/1. 73m2 LAB CHEMISTRY METHOD 11/02/2024 4:55 PM [facility] Comment:Calculation based on the??Chronic Kidney Disease Epidemiology Collaboration (CKD-EPI) equation refit??without adjustment for race. BUN/Creatinine Ratio 20.8 LAB CHEMISTRY METHOD 11/02/2024 4:55 PM [facility] Calcium 9.2 8.5 - 10.5 mg/dL LAB CHEMISTRY METHOD 11/02/2024 4:55 PM [facility] AST (SGOT) 11 10 - 42 unit/L LAB CHEMISTRY METHOD 11/02/2024 4:55 PM [facility] ALT (SGPT) 16 10 - 60 unit/L LAB CHEMISTRY METHOD 11/02/2024 4:55 PM [facility] Alkaline Phosphatase 64 42 - 121 unit/L LAB CHEMISTRY METHOD 11/02/2024 4:55 PM [facility] Total Protein 6.8 6.0 - 8.0 g/dL LAB CHEMISTRY METHOD 11/02/2024 4:55 PM EST [facility] Albumin 3.7 3.2 - 5.0 g/dL LAB CHEMISTRY METHOD 11/02/2024 4:55 PM EST [facility] Total Bilirubin 0.5 0.0 - 1.4 mg/dL LAB CHEMISTRY METHOD 11/02/2024 4:55 PM EST [facility] Blood Venous blood specimen / Unknown Venipuncture / Unknown 11/02/2024 1:33 PM EST 11/02/2024 1:33 PM EST Fabio MENDOZA LAB BLOOD ORDERAB LES [facility] [address] [place] [address], * XR Foot 3+ Views Right (11/02/2024 [...] Signed Date: 11/02/2024 19:31 ET Workstation ID: [id number] Transcribed By: Self Edit Transcribed Date: 11/02/2024 [...] Signed Date: 11/02/2024 19:31 ET Workstation ID: [id number] Transcribed By: Self Edit Transcribed Date: 11/02/2024 19:29 ET Fabio MENDOZA IMG XR PROCEDURES * (ABNORMAL) POC Wet Mount (09/19/2024 11:59 AM EST) Trichomonas, Wet Prep POC Absent Absent Yeast, Wet Prep POC Negative Not Applicable, Negative Clue Cells, Wet Prep POC Positive(A) Not Applicable, Negative Whiff Test, Wet Prep POC Negative Not Done, Negative Vaginal Fluid Vaginal structure / Unknown 09/19/2024 11:59 AM EST Constance Canales [facility] POINT OF CARE TEST ENTER/EDIT ORDERABLES * Culture urine (09/19/2024 11:54 AM EST) Culture, Urine No growth 09/20/2024 7:59 AM EST [facility] Urine Urine specimen obtained by clean catch procedure / Unknown Non-blood Collection / Unknown 09/19/2024 11:54 AM EST 09/19/2024 11:54 AM EST Constance Learyand [facility] MICROBIOLOGY - GENERAL ORDERABLES [facility] [address] [place] [address], * DIAGNOSTIC MAMMOGRAPHY INCLUDING CAD BILATERAL (11/16/2023 [...] BI-RADS 4A, low suspicion for malignancy. Fahad Amaral MD IMG BI PROCEDURES from Last 3 Months or Most Recently Relevant to Health Maintenance Care Teams Highway Maintenance Crew Worker Relationship Specialty Start Date End Date Fabio Moe PA [address] [place] [address] PCP - General Internal Medicine 04/23/20
--- OUTSIDE RECORDS SUMMARY | 2024-11-04 08:42 | XMS_ITS | Encounter Summary ---
Author Organization [place] [address] Care Team Providers Care Medical [employer] Officer Name Role Phone Fabio Moe Primary Care Provider [phone] Encounter Details Date Type Department Care Team (Latest Contact Info) Description 11/02/2024 1:00 PM EST - 11/02/2024 11:59 PM [facility] Hospital Encounter [facility] - [facility] [address] [place] [address] Right foot pain; Anemia in neoplastic disease; [...] (CMS/HCC) Discharge Disposition: Home or Self Care Social History Tobacco Use Types Packs/Day Years Used Date Smoking Tobacco: Former Cigarettes 0.1 23.9 0 02/02/1994 - 01/03/2018 Smokeless Tobacco: Never Alcohol Use Standard Drinks/Week [...] care for your loved ones. For example, childcare worker or elderly care for an older adult? [...] on file documented as of this encounter Medications at Time of Discharge Medication Sig Dispensed Refills Start Date End Date acetaminophen (TYLENOL) 500 mg tablet TAKE 1 TABLET (500 MG TOTAL) BY MOUTH EVERY 6 (SIX) HOURS NEEDED FOR PAIN. 90 tablet 1 09/05/2024 Advair HFA 230-21 mcg/actuation inhaler TAKE 1 PUFF BY MOUTH TWICE A DAY 36 each 1 10/19/2024 albuterol sulfate 90 mcg/actuation aerosol powdr breath activated Inhale 2 puffs into the lungs continuous prn. diclofenac (VOLTAREN) 1 % topical gel Apply 2 gram four times daily to affected joint 100 g 11/02/2024 ergocalciferol (VITAMIN D-2) 1,250 mcg (50,000 unit) capsule Take 1 capsule (50,000 Units total) by mouth once a week. 01/06/2024 ferrous sulfate 325 mg (65 mg elemental iron) tablet TAKE 1 TABLET BY MOUTH TWICE A DAY 180 tablet 1 10/04/2024 fluticasone furoate (ARNUITY ELLIPTA) 200 mcg/actuation blister with device inhaler Inhale 220 mcg into the lungs 2 (two) times a day. fluticasone propionate (FLONASE) 50 mcg/actuation nasal spray Administer 2 sprays into each nostril 1 (one) time each day. 48 mL 1 10/31/2024 gabapentin (NEURONTIN) 600 mg tablet Take 1 tablet (600 mg total) by mouth 3 (three) times a day. 90 each 11 11/02/2024 11/02/2025 montelukast (SINGULAIR) 10 mg tablet TAKE 1 TABLET BY MOUTH EVERYDAY AT BEDTIME 90 tablet 1 08/16/2024 morphine (MS CONTIN) 15 mg 12 hr tabletIndications:Mixe d cellularity Hodgkin lymphoma of lymph nodes of multiple regions (CMS/HCC),Intractable pain,Neck pain Take 1 tablet (15 mg total) by mouth every 12 (twelve) hours. Do not crush, chew, or split. Max Daily Amount: 30 mg 60 tablet 10/12/2024 nystatin-triamcinolone (MYCOLOG II) ointment 2x/day to affected area as needed for itching for up to 14 days 30 g 2 09/19/2024 omeprazole (PRILOSEC) 20 mg tablet,delayed release (DR/EC) Take 20 mg by mouth daily. ondansetron (ZOFRAN) 4 mg tablet Take 1 tablet (4 mg total) by mouth every 6 hours as needed. 04/20/2023 oxyCODONE (ROXICODONE) 5 mg immediate release tabletIndications:Intr actable pain Take 1 tablet (5 mg total) by mouth every 8 (eight) hours if needed for severe pain. Max Daily Amount: 15 mg 90 tablet 10/13/2024 sertraline (ZOLOFT) 100 mg tablet TAKE 1 TABLET BY MOUTH EVERY DAY 12/04/2022 traZODone (DESYREL) 50 mg tabletIndications:Sync ope and collapse,Other chest pain TAKE 1 TO 3 TABLET BY MOUTH AT BEDTIME NEEDED FOR SLEEP 90 tablet 5 11/01/2024 Vitamin D3 25 mcg (1,000 unit) tablet TAKE 1 TABLET BY MOUTH EVERY DAY 90 tablet 1 11/01/2024 documented as of this encounter Discharge Disposition Disposition Code Departure Means Destination Home or Self Care documented in this encounter Plan of Treatment Upcoming Encounters Date Type Department Care Team (Late st Contact Info) Description 11/14/2024 10:30 AM EST Office Visit [facility] Hematology Oncology [address] [place] [phone] Gagandeep Wright MD [address] [place] [phone] 11/24/2024 10:55 AM EST Appointment Radiology Department [address] [phone] 12/13/2024 3:30 PM EDT Ancillary Procedure [facility] - [address] [place] [address] [place] [phone] 12/19/2024 7:30 AM EDT Hospital Encounter [facility] Main OR [address] [place] [phone] Kyara Castillo MD [address] [place] [address] 12/19/2024 7:30 AM EDT - 12/19/2024 10:30 AM EDT Surgery [facility] Main OR [address] [place] [phone] Kyara Castillo MD [address] [place] [address] ABDOMINOPLASTY & PANNICULECTOMY [[id number] (CPT??) +1 more] 12/20/2024 9:40 AM EDT Office Visit Gastroenterology - [address] [phone] Marie Caraballo NP [address] [address] 05/02/2025 8:30 AM EDT Office Visit Adult Medicine [facility] [address] [place] [phone] Fabio Moe PA [address] [place] [address] Scheduled Procedures Name Priority Associated Diagnoses Date/Ti me ABDOMINOPLASTY Excessive and redundant skin and subcutaneous tissue Low back pain, unspecified 12/19/2024 7:30 AM EDT documented as of this encounter Procedures Procedure Name Priority Date/Time Associated Diagnosis Comments XR FOOT 3+ VIEWS RIGHT Routine 11/02/2024 1:16 PM EST Right foot pain Anemia [...] Mixed hyperlipidemia Mild ascending aorta dilation (CMS/HCC) documented in this encounter Results * XR Foot 3+ Views Right (11/02/2024 [...] Signed Date: 11/02/2024 19:31 ET Workstation ID: [id number] Transcribed By: Self Edit Transcribed Date: 11/02/2024 [...] Signed Date: 11/02/2024 19:31 ET Workstation ID: [id number] Transcribed By: Self Edit Transcribed Date: 11/02/2024 19:29 ET Fabio MENDOZA IMG XR PROCEDURES documented in this encounter Visit Diagnoses Diagnosis Right foot pain Pain in soft tissues [...] documented as of this encounter Care Teams Medical Corps Officer Relationship Specialty Start Date End Date Fabio Moe PA [address] [place] [address] PCP - General Internal Medicine 04/23/20 documented as of this encounter
--- OUTSIDE RECORDS SUMMARY | 2024-11-04 08:42 | XMS_ITS | Clinical Summary ---
Author Organization [facility] Address [address] [place] [address] Care Team Providers Care Yarn Weigher Name Role Phone Fabio Moe PA-C Primary [...] 0 04/20/2023 Active ergocalciferol (VITAMIN D2) capsule 94952 units Take 1 capsule (50,000 Units total) [...] in consultation to Dr. Dexter Lind at [facility], [place], [place]. See end of report for his interpretation. [...] of approximately 10% lymphocytes. Immunohistochemistry performed at [facility], [place], [place], shows that the large abnormal cells [...] age to complete this topic Care Teams Yarn Weigher Relationship Specialty Start Date End Date Fabio Moe, PARanjitC PCP - General Medical Services 06/06/21
--- OUTSIDE RECORDS SUMMARY | 2024-11-04 08:43 | XMS_ITS | Encounter Summary ---
Author Organization [employer] Address [address] [place] [address] Care Team Providers Care Learn To Swim Instructor Name Role Phone Fabio Moe Primary Care Provider [phone] Reason for Visit * Reason Comments Follow-up Encounter Details Date Type Department Care Team (Late st Contact Info) Description 10/12/2024 11:45 AM EST Office Visit [facility] Hematology Oncology [address] [place] [phone] Gagandeep Wright MD [address] [place] [phone] Mixed cellularity Hodgkin lymphoma of lymph nodes [...] care for your loved ones. For example, manager child or elderly care for an older adult? [...] 2024- please refer to notes from prior [facility] EMR last note dated 04/04/2024 Patient is more than 5 years from completion of 6 months of ABVD regimen for stage III classical Hodgkin lymphoma. Patient reports ongoing issues with generalized pain. She had evaluation at [facility], received injections and finally has a diagnosis of fibromyalgia. She is following with pain management in [place] who is trying to schedule her for [...] the interim she had rheumatology evaluation at [facility], and underwent injection to the left trochanter bursa with partial relief. She has gained about 10 pounds in weight. Neck pain is well-controlled with oxycodone on most days except during the later part of the week. No recent surgeries. 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 Due for lab work, restaging imaging, will [...] Asthma 11/14/2013 Diabetes mellitus type 2, uncomplicated ([facility]) 10/25/2018 Functional dyspepsia 06/01/2018 Gallbladder polyp 12/17/2015 Hepatomegaly 12/17/2015 History of laparoscopic partial gastrectomy 03/06/2021 Hodgkin lymphoma ([facility]) 10/20/2018 Hyperlipidemia 08/09/2017 Lichen simplex chronicus 12/09/2012 Mild ascending aorta dilation ([facility]) 12/28/2023 MRSA carrier 12/31/2018 PATRICK (obstructive sleep apnea) 12/09/2011 Overweight (BMI 25.0-29.9) 06/13/2022 Recurrent vaginitis 10/26/2023 Trochanteric bursitis of both hips 02/02/2024 Cervical disc herniation 12/09/2019 Fibromyalgia 02/02/2024 Palpitations 10/28/2022 TIA (transient ischemic attack) 10/28/2022 Resolved Ambulatory Problems Diagnosis Date Noted Anxiety 10/12/2018 Lymphoma of lymph nodes of multiple regions ([facility]) 10/12/2018 Microcytic anemia 10/12/2018 Palpitations 10/28/2022 TIA (transient ischemic attack) 10/28/2022 Dysuria 06/03/2021 GERD (gastroesophageal reflux disease) 04/25/2011 Intractable pain 09/01/2023 Iron deficiency anemia 12/10/2022 Past Medical History: Diagnosis Date Acanthosis nigricans 12/09/2012 Menorrhagia with regular cycle 09/13/2018 Morbid obesity with BMI of 45.0-49.9, adult ([facility]) 12/09/2011 Port-A-Cath in [address] 11/09/2019 SOCIAL HISTORY: [...] cervical disc prolapse Continue follow-up with neurosurgery, [place] [facility] and sports - had partial relief [...] Description 11/14/2024 10:30 AM EST Office Visit [facility] Hematology Oncology [address] [place] [phone] Gagandeep Wright MD [address] [place] [address] 11/24/2024 10:55 AM EST Appointment Radiology Department - [address] [phone] 12/13/2024 3:30 PM EDT Ancillary Procedure [facility] - [address] [phone] 12/19/2024 7:30 AM EDT Hospital Encounter [facility] Main OR [address] [place] [address] Kyara Castillo MD [address] [place] [address] 12/19/2024 7:30 AM EDT - 12/19/2024 10:30 AM EDT Surgery [facility] OR [address] [place] [phone] Kyara Castillo MD [address] [place] [address] ABDOMINOPLASTY & PANNICULECTOMY [[id number] (CPT??) +1 more] 12/20/2024 9:40 AM EDT Office Visit Gastroenterology - [address] [phone] Marie Caraballo, LOW VOLTAGE ELECTRICIAN [address] [address] 05/02/2025 8:30 AM EDT Office Visit [facility] - [address] [phone] Fabio Moe PA [address] [place] [address] Scheduled Procedures Name Priority Associated Diagnoses Date/Ti [...] documented as of this encounter Care Teams Learn To Swim Instructor Relationship Specialty Start Date End Date Fabio Moe PA [address] [place] [address] PCP - General Internal Medicine 04/23/20 documented as of this encounter
--- OUTSIDE RECORDS SUMMARY | 2024-11-04 08:43 | XMS_ITS | Clinical Summary ---
Author Organization [facility] Address [address] [place] [address] Care Team Providers Care Cable Stretcher And Tester Name Role Phone Fabio Moe Primary Care Provider [phone] Allergies No known active allergies Medications acetaminophen [...] propionate (FLONASE) 50 mcg/actuation nasal spray SMARTSI [place](s) Both Nares Daily Active gabapentin (NEURONTIN) 400 [...] this topic Insurance [employer] Care Teams Cable Stretcher And Tester Relationship Specialty Start Date End Date Fabio Moe PCP - General Internal Medicine 01/18/24
[2024-11-04 08:44] VITALS: BP 145/89; PULSE 65; BMI 34.6
== END 2024-11-04 08:52 | disposition home or self-care (01) ==
PROVIDERS: PCP Internal Medicine Endocrinology, Diabetes & Metabolism; Visit Provider Registered Nurse Emergency
DX: G89.3 Neoplasm related pain (acute) (chronic) (principal); M47.816 Spondylosis without myelopathy or radiculopathy, lumbar region; M47.812 Spondylosis without myelopathy or radiculopathy, cervical region
CPT/HCPCS: 99213; G2211

== ENCOUNTER → 2024-11-04 08:33 | Outpatient (BNVA) | payer OTHER, SELFPAY | PROVIDERS: PCP Internal Medicine Endocrinology, Diabetes & Metabolism; Visit Provider Registered Nurse Emergency | DX: G89.3 Neoplasm related pain (acute) (chronic) (principal); M47.816 Spondylosis without myelopathy or radiculopathy, lumbar region; M47.812 Spondylosis without myelopathy or radiculopathy, cervical region | CPT/HCPCS: 99212 ==

== ENCOUNTER 2024-12-30 10:35 | Outpatient (AMB) | payer OTHER, SELFPAY ==
--- NOTE | 2024-12-30 10:37 | MHC.OFFVIS ---
Vital Signs 12/30/24 10:41 Height 5 ft 1 in Weight 189 lb 8 oz BMI 35.8 BP 162/79 H Blood Pressure Location Rt brachial Position Sitting Pulse 68 Pulse Source Pulse Oximeter Pulse Oximetry (%) 97 Oxygen Delivery Method Room Air Intake Visit Reasons: DISCUSS ALTERNATIVE OPTIONS Intake Note: Pain today 01/12 Lab Instructor Required: No Accompanied by: Self / Same As Patient Allergies No Known Allergies Allergy (Verified 12/30/24 10:42) HPI Comments Details: The patient is a 44-year-old female presenting with chronic pain management concerns. She reports persistent pain related to prior cancer treatments, noted to contribute significantly to her current discomfort level. The patient indicates a complex history involving pain from fibromyalgia, degenerative changes in her spine, as well as osteoporosis. There has been a significant reliance on strong pharmacological agents like morphine and oxycodone, but this has led to multiple challenges including side effects which impacts her quality of life. The patient has been managing her pain through medication and transdermal patches to facilitate her attendance at scheduled appointments. She has been previously recommended for Sprint PNS, a procedure known to provide more extended pain relief, though insurance denied the procedure. Throughout her situation, she maintains an active role in her own care, utilizing home exercises and other supportive services to help manage her condition and improve functionality. Here today to discuss alternative options for interventional management. - Onset and Timing: Chronic and ongoing due to cancer treatments and degenerative changes. - Quality and Character: Persistent and severe enough to require opioids. - Location: Primarily lower back pain. - Exacerbating Factors: Activity and lack of effective pain management. - Relieving Factors: Use of medication including morphine, oxycodone, and transdermal patches. - Interference: Significant impact on daily living, requiring medication for appointments and basic tasks. - Affect: Pain has a substantial impact on mood and psychological wellbeing. - Analgesia: Uses oxycodone, morphine, and pain patches. Current goals focus on adequate pain relief. - Adverse Effects: Side effects include feeling consistently high, impairing daily functioning. - Activities of Daily Living: Pain limits patient activity and engagement in regular life; medications help but also lead to impairment. - Aberrant Drug Related Behaviors: No specific misuse behaviors discussed; patient complies with current prescription requirements. Prior: Patient presents back to the office today for follow-up, 3 days status post bilateral diagnostic L3-L4 DR L5 medial branch blocks Endorses 70% pain relief for at least 6 hours after the injection. Denies any untoward effects. Patient continues on oxycodone, gabapentin, Tylenol, duloxetine, tizanidine. She was also just started on morphine by her oncologist. Pain today is rated as a 2/10 Prior: Patient presents back to the office today for follow-up bilateral lower back pain At last visit she endorse 70% pain relief after right-sided medial branch blocks, booking order for left side was placed but as of today no approval has been received from the insurance company. She was then lost to follow-up. Now having bilateral lower back pain, rated today as 4/10 She has been taking oxycodone, gabapentin, Tylenol, duloxetine, tizanidine and using lidocaine patches all without improvement of her pain. She completed physical therapy and continues with home exercise program but pain persists Prior: Patient presents back to the office today for follow-up, status post right diagnostic L3-L4 DR L5 MBB with local anesthetic. She reports approximately 70% pain relief after the injection, with improvement in functional mobility. She states she is able to do housework at home that normally she would not be able to do including washing dishes. Since the procedure she reports worsening of her left sided lower back pain. She would like to attempt diagnostic injections for that side and hopefully proceed with bilateral sprint PNS She has been taking the tizanidine with good effect, she would like to continue on this medication Intake visit: Igor is a very pleasant 43-year-old female who presents the office today for evaluation management of her chronic diffuse all-over pain. Patient reports the pain started after she underwent chemotherapy to treat Hodgkin's lymphoma in 2019. Patient complains of pain ?from neck to ankles?. She states her worst pain is her right neck/shoulder and right lower back. Today would like to focus on lower back pain. Patient endorses pain to right lower back can worse with movement and tender to palpation. Endorses muscle spasm. Denies radiation of the pain down the extremities. Patient reports that she has a recent EMG and lumbar MRI at [facility] signed for record request. Patient completed physical therapy, she continues doing home exercise program as instructed on discharge from PT. She has a SOCIAL MEDIA STRATEGIST at home that helps her with the home exercise. Patient has exhausted medication attempts including muscle relaxers, gabapentin, Tylenol and prescription opioids. She is not able to take nonsteroidal anti-inflammatory medications due to previous gastric ulcer. Pain today is rated as a 4/10, aching, stabbing, pins and needles. Denies red flag symptoms. In terms of muscle damage condition is described as aching, spasming, hot, burning, shooting, dull, tiring, cramping, squeezing, numb, throbbing, stabbing, sharp, tingling, pins and needles Pain is negatively impacting patient's enjoyment of life, general activity, mood, normal work, recreational activities, relationships with people, sleep and walking. She has imaging coming up November 16 for her left breast, recently found a lump. She also has an upcoming echo and stress test in November as she has been having fluttering in her chest. She will be seeing rheumatology in [place] in the next couple of weeks, she saw Rheumatology at [place] but requested her PCP refer her elsewhere. [facility] Medical History GERD (gastroesophageal reflux disease) Obstructive sleep apnea (adult) (pediatric) Lichen simplex chronicus Asthma Polyp of gallbladder Hyperlipidemia, unspecified Functional dyspepsia Hodgkin lymphoma Type 2 diabetes mellitus without complications Abnormal chest x-ray Vitamin D deficiency MRSA carrier Cervical disc herniation Vulvar itching Anxiety and depression Dysuria Low libido Overweight (BMI 25.0-29.9) Iron (Fe) deficiency anemia Surgical History Bariatric surgery status Review of Systems Const Details: - Musculoskeletal: Reports fibromyalgia and degenerative changes. - Endocrine: Denies new issues with osteoporosis beyond management. - General: Reports habitual use of pain medication such as oxycodone and morphine. Physical Exam Vital Signs: Last Vital Signs Pulse 68 12/30/24 10:41 BP 162/79 H 12/30/24 10:41 Pulse Ox 97 12/30/24 10:41 Oxygen Delivery Method Room Air 12/30/24 10:41 BMI result Body Mass Index 35.8 General: awake, alert, oriented. Answers questions appropriately. Fully engaged in examination. Skin: warm, dry, intact HEENT: Normocephalic. Hearing intact. Cardiac: External chest normal in appearance. Respiratory: No cough, audible wheezing or stridor. Abdomen: without gross distension. MS: No obvious swelling or deformities. Neurological: Oriented to person, place, time and situation. Thought process intact. No gait abnormalities appreciated. Psychiatric: Appropriate mood and affect. Good judgment and insight. Results Reviewed Results Reviewed: Assessment & Plan Assessment & Plan (1) Chronic pain after cancer treatment: Code(s): G89.3 - Neoplasm related pain (acute) (chronic) Category: Medical (2) Lumbar spondylosis: Code(s): M47.816 - Spondylosis without myelopathy or radiculopathy, lumbar region Category: Medical (3) Cervical spondylosis: Code(s): M47.812 - Spondylosis without myelopathy or radiculopathy, cervical region Category: Medical Plan We will pursue insurance approval for radiofrequency ablation to manage her chronic lower back pain more effectively, providing longer-term relief. If necessary, repeat diagnostic injections may be completed to demonstrate efficacy in obtaining insurance coverage authorization. Her current medication regimen will be continued, emphasizing the need to manage side effects while maintaining her daily functionality. The patient will remain active and engaged with supportive services to optimize her overall health and mitigate the degenerative changes and osteoporosis effectively. During the visit, we discussed the pain management plan focused on obtaining insurance approval for radiofrequency ablation, explaining the procedure and how it could provide extended relief. Alternatives, such as steroid injections, were addressed, with emphasis on their potential adverse effects. We also discussed the potential need for repeat diagnostic injections should her insurance require further demonstration of efficacy. Besides intervention, we reviewed the impact of current medications on her quality of life and how she could mitigate their side effects while maintaining activity through SOCIAL MEDIA STRATEGIST services. Consent regarding the RFA procedure was discussed, emphasizing associated benefits and risks. - Await insurance approval for radiofrequency ablation, which we are currently submitting. - Continue current pain medication as prescribed while being aware of side effects. - Report any adverse effects of medications. - If notified for repeat injections, ensure to schedule and attend these appointments as required by insurance. - Be physically active within comfort to manage osteoporosis and degenerative changes. Patient was informed and verbally consented to the use of an ambient scribe for clinic note documentation during this visit. Coding Level of Care Code Est Pt Level 3 (06479) Complex EM visit Add On G2211 Diagnoses Chronic pain after cancer treatment G89.3 Lumbar spondylosis M47.816 Cervical spondylosis M47.812
[2024-12-30 10:41] VITALS: BP 162/79; PULSE 68; O2SAT 97; BMI 35.8
== END 2024-12-30 10:51 | disposition home or self-care (01) ==
LOC: HO.PMC 10:35
PROVIDERS: PCP Internal Medicine Endocrinology, Diabetes & Metabolism; Visit Provider Registered Nurse Emergency
DX: G89.3 Neoplasm related pain (acute) (chronic) (principal); M47.816 Spondylosis without myelopathy or radiculopathy, lumbar region; M47.812 Spondylosis without myelopathy or radiculopathy, cervical region
CPT/HCPCS: 99213; G2211

== ENCOUNTER → 2024-12-30 10:35 | Outpatient (BNVA) | payer OTHER, SELFPAY | PROVIDERS: PCP Internal Medicine Endocrinology, Diabetes & Metabolism; Visit Provider Registered Nurse Emergency | DX: M47.816 Spondylosis without myelopathy or radiculopathy, lumbar region (principal); M47.812 Spondylosis without myelopathy or radiculopathy, cervical region; G89.3 Neoplasm related pain (acute) (chronic) | CPT/HCPCS: 99212 ==

== ENCOUNTER 2025-02-22 09:40 | Outpatient (AMB) | payer OTHER, SELFPAY ==
--- NOTE | 2025-02-22 09:55 | MHC.OFFVIS ---
Vital Signs 02/22/25 09:56 Height 5 ft 1 in Weight 188 lb BMI 35.5 BP 119/73 Blood Pressure Location Lt brachial Position Sitting Respiration 16 Pulse 84 Pulse Source Pulse Oximeter Pulse Oximetry (%) 100 Oxygen Delivery Method Room Air Intake Visit Reasons: Denial FU Nursing Clinical Director Required: No Allergies No Known Allergies Allergy (Verified 02/22/25 09:57) Medication List - Last Reconciled 02/22/25 by Gerda Bhandari LPN acetaminophen 1,000 mg PO Q6H PRN amitriptyline mg PO atorvastatin 20 mg PO DAILY cetirizine (Zyrtec) 10 mg PO DAILY PRN cyanocobalamin (vitamin B-12) 1,000 mcg sublingual DAILY docusate sodium (Colace) 100 mg PO BID duloxetine mg PO DAILY fluticasone furoate-vilanterol 200-25 mcg/dose (Breo Ellipta) inhalation DAILY fluticasone propion-salmeterol 230-21 mcg/actuation (Advair HFA) inhalation fluticasone propionate 50 mcg/actuation 2 sprays intranasal DAILY gabapentin 400 mg PO BID lidocaine 5% 1 patch topical DAILY loratadine 10 mg PO DAILY lorazepam 0.5 mg PO BEDTIME PRN morphine ER mg PO omeprazole 20 mg PO BID ondansetron HCl 8 mg PO Q8H oxycodone 5 mg PO Q4H PRN sertraline (Zoloft) 100 mg PO DAILY thiamine HCl (vitamin B1) 50 mg PO DAILY tizanidine 2 mg PO TID PRN HPI Comments Details: The patient is a 44-year-old female presenting with chronic back pain. She has a history of severe, progressive back pain affecting her entire back, made worse over time, with losses in functionality and quality of life due to difficulty sleeping and sitting. She has a medical history notable for arthritis and herniated discs, contributing to her pain. Prior interventions have been attempted without long-term relief, and insurance barriers have interrupted continued treatment efforts. The patient's back pain has escalated in severity and persistence, necessitating further diagnostic evaluation, including an upcoming MRI. Despite some relief from past diagnostic medial branch block procedures, her condition has not improved significantly. She is considering therapeutic injections with steroids to assist in managing her pain more effectively while other treatment options are pursued. - The pain is chronic and has progressively worsened over time. - Predominantly affects the entire back. - Exacerbated by sitting and laying down, leading to difficulties in sleeping. - Temporary relief is achieved with medication, but with notable side effects, including sedation. - Past radiofrequency ablation provided some relief, yet pain persists. - Considering therapeutic injections with steroids for additional pain management. - Affect: Chronic pain is significantly affecting mood and psychological wellbeing. - Analgesia: Current medications provide limited relief, often sedating; seeking longer-term solutions like therapeutic steroid injections. - Adverse Effects: Medications provide brief relief but are accompanied by sedation. - Activities of Daily Living: Pain impacts sleep and sitting; seeking improved functionality and pain relief. - Aberrant Drug Related Behaviors: No notable behaviors reported during the conversation. [facility] Medical History GERD (gastroesophageal reflux disease) Obstructive sleep apnea (adult) (pediatric) Lichen simplex chronicus Asthma Polyp of gallbladder Hyperlipidemia, unspecified Functional dyspepsia Hodgkin lymphoma Type 2 diabetes mellitus without complications Abnormal chest x-ray Vitamin D deficiency MRSA carrier Cervical disc herniation Vulvar itching Anxiety and depression Dysuria Low libido Overweight (BMI 25.0-29.9) Iron (Fe) deficiency anemia Surgical History Bariatric surgery status Review of Systems Const Details: - Musculoskeletal: Reports chronic back pain. - Neurological: Reports pain affecting sleep. - General: Denies any unexplained weight loss, fever, or other systemic symptoms. Physical Exam Vital Signs: Last Vital Signs Pulse 84 02/22/25 09:56 Resp 16 02/22/25 09:56 BP 119/73 02/22/25 09:56 Pulse Ox 100 02/22/25 09:56 Oxygen Delivery Method Room Air 02/22/25 09:56 BMI result Body Mass Index 35.5 General: awake, alert, oriented. Answers questions appropriately. Fully engaged in examination. Skin: warm, dry, intact HEENT: Normocephalic. Hearing intact. Cardiac: External chest normal in appearance. Respiratory: No cough, audible wheezing or stridor. Abdomen: without gross distension. MS: No obvious swelling or deformities. Neurological: Oriented to person, place, time and situation. Thought process intact. No gait abnormalities appreciated. Psychiatric: Appropriate mood and affect. Good judgment and insight. Results Reviewed Results Reviewed: Assessment & Plan Assessment & Plan (1) Chronic pain after cancer treatment: Code(s): G89.3 - Neoplasm related pain (acute) (chronic) Category: Medical (2) Lumbar spondylosis: Code(s): M47.816 - Spondylosis without myelopathy or radiculopathy, lumbar region Category: Medical (3) Cervical spondylosis: Code(s): M47.812 - Spondylosis without myelopathy or radiculopathy, cervical region Category: Medical Plan An MRI that was ordered by her oncologist will be conducted to appraise the condition of the patient's back in detail. I discussed pursuing therapeutic steroid injections to attempt longer-term relief, relying on results from the upcoming MRI. This aligns with the patient's past treatment responses, such as diagnostic medial branch blocks, that provided short-term relief relief. Insurance proceedings will be pursued to ensure continued treatment options are accessible, addressing the patient's significant pain impact on daily activities and quality of life. I discussed with the patient her ongoing issues with chronic back pain, attributed to arthritis and herniated disc, and the management options available.Therapeutic injections with possible steroid addition were noted as a potential avenue for persistent pain relief, although insurance approvals may present a challenge. I addressed steroid injection benefits and expected duration of relief, along with possible risks. The patient understands the current limitations due to insurance issues and has agreed to pursue options that align with her pain management goals. We also discussed the balance between medication use for short-term relief and longer-term solutions to avoid excessive sedation. Patient will call the office if she chooses to proceed with bilateral therapeutic L3-L4 DR L5 medial branch blocks with local anesthetic. Patient was informed and verbally consented to the use of an ambient scribe for clinic note documentation during this visit. Patient Instructions: - Undergo MRI as scheduled and send me the results. - Contact insurance regarding pending appeals and discuss options for injections. - Consider therapeutic injections to help manage chronic back pain. Call the office if you would like to schedule. - Monitor tolerance to current medication and report any adverse effects. - Contact my office for any significant changes in symptoms or if pain becomes unbearable. Coding Level of Care Code Est Pt Level 3 (31890) Complex EM visit Add On G2211 Diagnoses Chronic pain after cancer treatment G89.3 Lumbar spondylosis M47.816 Cervical spondylosis M47.812
[2025-02-22 09:56] VITALS: BP 119/73; PULSE 84; RESP 16; O2SAT 100; BMI 35.5
--- OUTSIDE RECORDS SUMMARY | 2025-02-22 10:58 | XMS_ITS | Clinical Summary ---
Author Organization [facility] Address [address] [place] [address] Care Team Providers Care Drapery Rod Assembler Name Role Phone Fabio Moe PA-C Primary [...] 0 04/20/2023 Active ergocalciferol (VITAMIN D2) capsule 42091 units Take 1 capsule (50,000 Units total) [...] in consultation to Dr. Dexter Lind at [facility], [place], [place]. See end of report for his interpretation. [...] of approximately 10% lymphocytes. Immunohistochemistry performed at [facility], [place], [place], shows that the large abnormal cells [...] age to complete this topic Care Teams Drapery Rod Assembler Relationship Specialty Start Date End Date Fabio Moe, PARanjitC PCP - General Medical Services 06/06/21
--- OUTSIDE RECORDS SUMMARY | 2025-02-22 10:58 | XMS_ITS | Referral Summary ---
Author Organization [facility] Address [address] [place] [address] Care Team Providers Care Assistant Purchasing Manager Name Role Phone Fabio Moe Primary Care Provider [phone] Allergies No known active allergies Medications acetaminophen [...] propionate (FLONASE) 50 mcg/actuation nasal spray SMARTSI [place](s) Both Nares Daily Active gabapentin (NEURONTIN) 400 [...] on file Insurance [employer] Care Teams Assistant Purchasing Manager Relationship Specialty Start Date End Date Fabio Moe PCP - General Internal Medicine 01/18/24
--- OUTSIDE RECORDS SUMMARY | 2025-02-22 10:58 | XMS_ITS | Clinical Summary ---
Author Organization Patient Business Ser [facility] Address [address] [place] [address] Care Team Providers Care Braille Operator Name Role Phone Fabio Moe Primary Care Provider [phone] Allergies No known active allergies Medications albuterol sulfate 90 mcg/actuation aerosol powdr breath activated Inhale 2 puffs into the lungs continuous prn. Active fluticasone furoate (ARNUITY ELLIPTA) 200 mcg/actuation blister with device inhaler Inhale 220 mcg into the lungs 2 (two) times a day. Active sertraline (ZOLOFT) 100 mg tablet TAKE 1 TABLET BY MOUTH EVERY DAY 023 Active nystatin-triamcin olone (MYCOLOG II) ointment 2x/day to affected area as needed for itching for up to 14 days 30 g 2 024 Active ferrous sulfate 325 mg (65 mg elemental iron) tablet TAKE 1 TABLET BY MOUTH TWICE A DAY 180 tablet 1 024 Active Advair HFA 230-21 mcg/actuation inhaler TAKE 1 PUFF BY MOUTH TWICE A DAY 36 each 1 025 Active traZODone (DESYREL) 50 mg tabletIndications :Syncope and collapse,Other chest pain TAKE 1 TO 3 TABLET BY MOUTH AT BEDTIME NEEDED FOR SLEEP 90 tablet 5 Active Vitamin D3 25 mcg (1,000 unit) tablet TAKE 1 TABLET BY MOUTH EVERY DAY 90 tablet 1 Active amitriptyline (ELAVIL) 10 mg tablet Take 1 tablet (10 mg total) by mouth at bedtime. Active Breo Ellipta 200-25 mcg/dose inhaler Inhale 1 puff by mouth 1 (one) time each day. Active atorvastatin (LIPITOR) 20 mg tablet TAKE 1 TABLET BY MOUTH EVERY DAY 90 tablet 1 Active fluticasone propionate (FLONASE) 50 mcg/actuation nasal spray Administer 2 sprays into each nostril 1 (one) time each day. Shake gently. Before first use, prime pump. After use, clean tip and replace cap. 16 g 2025 Active ondansetron ODT (ZOFRAN-ODT) 8 mg disintegrating tablet Dissolve 1 tablet (8 mg total) on top of the tongue every 8 (eight) hours if needed for nausea or vomiting. 20 tablet 11 025 2024 Active DULoxetine (CYMBALTA) [address] capsule TAKE 1 CAPSULE BY MOUTH EVERY DAY 30 capsule Active ergocalciferol (VITAMIN D-2) 1,250 mcg (50,000 unit) capsule TAKE 1 CAPSULE BY MOUTH ONE TIME PER WEEK 12 capsule 2 Active acetaminophen (TYLENOL) 500 mg tablet TAKE 1 TABLET BY MOUTH EVERY 6 HOURS NEEDED FOR PAIN. 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 Do not crush, chew, or split. Max Daily Amount: 30 mg 60 tablet Active oxyCODONE (ROXICODONE) 5 mg immediate release tabletIndications :Intractable pain Take 1 tablet (5 mg total) by mouth every 8 (eight) hours if needed for severe pain. Max Daily Amount: 15 mg 90 tablet Active triamcinolone (KENALOG) 0.1 % cream APPLY TO AFFECTED AREAS ONE OR TWO TIMES PER DAY FOR TWO TO FOUR WEEKS 30 g 11 Active omeprazole (PriLOSEC) [address] capsule TAKE 1 CAPSULE BY MOUTH TWICE A DAY 180 capsule 1 Active montelukast (SINGULAIR) 10 mg tablet TAKE 1 TABLET BY MOUTH EVERYDAY AT BEDTIME 90 tablet 1 Active sulfamethoxazole- trimethoprim (BACTRIM DS,SEPTRA DS) 800-160 mg per tablet Take 1 tablet by mouth 2 (two) times a day for 5 days. 10 tablet 025 2024 Active montelukast (SINGULAIR) 10 mg tablet TAKE 1 TABLET BY MOUTH EVERYDAY AT BEDTIME 90 tablet 1 024 2024 Discontinued acetaminophen (TYLENOL) 500 mg tablet TAKE 1 TABLET BY MOUTH EVERY 6 HOURS NEEDED FOR PAIN. 90 tablet 1 025 2024 Discontinued diclofenac (VOLTAREN) 1 % topical gel APPLY 2 GRAM TOPICALLY TO AFFECTED JOINT 4 TIMES A DAY 100 g 1 025 2024 Discontinued gabapentin (NEURONTIN) 300 mg capsule 3 times a day for one week, twice a day for a week, once a day for a week, then STOP 42 each 2024 Discontinued omeprazole (PriLOSEC) [address] capsule Take 1 capsule (20 mg total) by mouth 2 (two) times a day. 025 2024 Discontinued predniSONE (DELTASONE) 20 mg tablet Take 60 mg PO daily for 3 days, then take 40 mg PO daily for 3 days, then 20 mg PO daily for 3 days, then stop 18 tablet 2024 Discontinued benzonatate (TESSALON) 100 mg capsule Take 1 capsule (100 mg total) by mouth 3 (three) times a day if needed for cough. Do not crush or chew. 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 Do not crush, chew, or split. Max Daily Amount: 30 mg 60 tablet 025 2024 Discontinued(R eorder) oxyCODONE (ROXICODONE) 5 mg immediate release tabletIndications :Intractable pain Take 1 tablet (5 mg total) by mouth every 8 (eight) hours if needed for severe pain. Max Daily Amount: 15 mg 90 tablet 025 2024 Discontinued(R eorder) Active Problems Problem Noted Date Diagnosed Date Chemotherapy-induced neuropathy ([facility] V24) Trochanteric bursitis of both hips 02/02/2024 Overview [...] issue. Fibromyalgia 02/02/2024 Mild ascending aorta dilation ([facility] V24) 12/04 Mass of upper outer quadrant of left [...] upper abdomen 10/27/2018 Diabetes mellitus type 2, un complicated (CMS/HCC V24, CMS/[facility] V28) 10/25/2018 Mixed cellularity Hodgkin ly mphoma of lymph nodes of multiple regions (CMS/HCC V24, CMS/[facility] V28) 10/20/2018 Overview (05/18/2024): 38-year-old lady, ECOG performance [...] Patient was started on ABVD regimen in February 2 019.after 4 treatments, she had a PET/CT scan, [...] in consultation to Dr. Dexter Lind at [facility], [place], [place]. See end of report for his interpretation. [...] of approximately 10% lymphocytes. Immunohistochemistry performed at [facility], [place], [place], shows that the large abnormal cells are positive for BOB1 and OCT2. IN-SITU HYBRIDIZATION: EBV-encoded RNA (SABRINA) MARION is positive in the large abnormal cells. Hodgkin lymphoma (CMS/HCC V24, CMS/HCC V28) 10/05 Overview (08/16/2024): Right lymph node excision, reported [...] and seal with coconut oil, and follow [facility] guidelines. PATRICK (obstructive sleep apnea) 12/09/2011 [...] 10/12/2018 09/19/2024 Lymphoma of lymph nodes of m ultiple regions (CMS/HCC V24, CMS/HCC V28) 10/12/2018 09/19/2024 Microcytic anemia 10/12/2018 09/19/2024 GERD (gastroesophageal reflux disease) 04/25/2011 09/19/2024 Encounters Date Type Department Care Team Description 02/21/2025 1:45 PM EDT Office Visit [facility] [address] [place] [address] Inocencia Muñoz CNM Urinary pain (Primary Dx); Acute vaginitis; Urinary frequency; Recurrent UTI; Pelvic pain in female 02/14/2025 9:30 AM EDT Office Visit 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 Endoscopy [address] [place] [phone] Holland Taylor MD Burton, Heather, CRNA 12/27/2024 8:18 AM EDT - 12/27/2024 11:59 PM EDT Hospital Encounter [facility] [address] [place] [phone] Marianna Lorenzo MD Burton, Heather, CRNA Spencer, Mark A, MD GERD (gastroesophageal reflux disease); History of gastric ulcer Discharge Disposition: Home or Self Care 12/22/2024 Telephone Gastroenterology - [address] [place] [phone] Marianna Lorenzo MD 12/20/2024 9:40 AM EDT Office Visit Gastroenterology - [address] [phone] Marie Caraballo NP Gastroesophageal reflux disease, unspecified whether esophagitis present (Primary Dx); Colon cancer screening 12/08/2024 11:30 AM EST Office Visit 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 ([facility] V24, [facility] V28); Intractable pain; Neck pain 12/07/2024 12:11 PM EST - 12/07/2024 11:59 PM EST Hospital Encounter [address] [phone] Acute cough Discharge Disposition: Home or Self Care 12/07/2024 11:30 AM EST Office Visit Adult Medicine [address] [phone] Chacorta Fish MD Acute cough (Primary Dx); Sinus congestion; Chest congestion; 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 ([facility] V24, [facility] V28) 12/07/2024 Telephone Adult Medicine [address] [phone] Fabio Moe PA Cough 11/30/2024 2:28 PM EST - 11/30/2024 11:59 PM EST Hospital Encounter Radiology Department - [address] [phone] Unspecified lump in the left breast, upper outer quadrant Discharge Disposition: Home or Self Care 11/30/2024 2:27 PM EST - 11/30/2024 11:59 PM EST Hospital Encounter Radiology Department - [address] [phone] Other abnormal and inconclusive findings on diagnostic imaging of breast Discharge Disposition: Home or Self Care 11/25/2024 11:15 AM EST Office Visit Obstetrics & Gynecology - [facility] [address] [place] [address] Inocencia Muñoz, BUBBA Acute vaginitis (Primary Dx); Urinary pain from Last 3 Months Immunizations Name Administration Dates Next Due H1N1 Inj Preservative Free 07/31/2009 HPV 9-valent (Gardisil) 9yo to less than 46yo 05/02/2021,12/26/2020,06/27/2020 Hepatitis B (Csrhzkp-Z-Urvpt , Recombivax HB-Adult) 19yo and older 05/24/2014,12/16/2007 Influenza trivalent, 0.5mL, preservative free (Fluarix; FluLaval; Fluzone) ages 6mo and older (Afluria) 3 years and older 08/03/2024,06/25/2021,08/05/2020,07/16 Influenza, Unspecified 07/07/2022,07/09/2021 MMR, measles mumps and rubel la Live (Priorix; M-M-R II) 12mo and older 05/27/2014 PPD Test 05/14/2016,06/13/2015 Apse SARS-CoV-2 COVID-19, mRNA, LNP-S, preservative free 07/09/2021,11/28/2020,11/07/2020 Pneumococcal polysaccharide 23 valent (Pneumovax 23) 2yo and older 11/14/2013 Td Tetanus diptheria (Tdvax) 7yo and older 07/26/2018 Tdap Tetanus diptheria acell ular pertussis (Boostrix; Adacel) 7yo and older 12/16/2007 Varicella live (Varivax) 12m o and older 05/27/2014 Surgical History Surgery Date Site/Laterality Comments TUBAL LIGATION PROCEDURE: HISTORICAL TUBAL LIGATION UPPER GASTROINTESTINAL ENDOSCOPY 12/31/17 Stephan PROCEDURE: AR UPPER GI ENDOSCOPY PERFORMED; COMMENT: erosions and erythema antrum and bulb; nl esophagus, but free flow of gastric contents. Active duodenitis with H. pylori; chronic gastritis with H. pylori OTHER SURGICAL HISTORY 11/2018 PROCEDURE: BONE MARROW BIOPSY; COMMENT: negative for disease in setting of Hodgkin Lymphoma OTHER SURGICAL HISTORY PROCEDURE: AR CHEMOTX ADMN PERTL CAVITY IMPLANTED PORT/CATH; COMMENT: Port A Cath ABDOMINAL SURGERY 02/2021 PROCEDURE: HISTORICAL ABDOMINAL SURGERY; COMMENT: sleeve gastrectomy dr. alfaro HYSTERECTOMY 12/17/2022 PROCEDURE: HISTORICAL VAGINAL HYSTERECTOMY W/O BSO; COMMENT: menorrhagia, adenomyosis- Cristin Medical History Medical History Date Comments Abnormal chest x-ray 03/03/2019 DX:Abnormal chest x-ray; COMMENT: 02/20 - recommended follow up chest CT Acanthosis nigricans 12/09/2012 DX:Acanthos is nigricans Asthma 11/14/2013 DX:Asthma Diabetes mellitus type 2, uncomplicated (CMS/HCC V24, CMS/HCC V28) 10/25/2018 DX:Diabetes mellitus type 2, uncomplicated ([facility]) Functional dyspepsia 06/01/2018 DX:Function al dyspepsia Gallbladder polyp 12/17/2015 DX:Gallbladder polyp GERD (gastroesophageal reflux disease) 04/25/2011 DX:GERD (gastroesophageal reflux disease) Hepatomegaly 12/17/2015 DX:Hepatomegaly; COMMENT: US 09/21/2018 Hodgkin lymphoma (CMS/HCC V2 4, CMS/HCC V28) 10/20/2018 DX:Hodgkin lymphoma (HCC); C OMMENT: Right lymph node excision, reported 10/18/2018, 6 months ABVD chemo 2D ECHO 02/08/19 EF 60-65% Hyperlipidemia 08/09/2017 DX:Hyperlipidemi a; COMMENT: LDL 155, 08/08/2017 Menorrhagia with regular cycle 09/13/2018 D X:Menorrhagia with regular cycle; COMMENT: Tried Mirena IUD with BTB and had this removed 10/2018 Benign EMB 11/04/18 FAHAD AMARAL MD Morbid obesity with BMI of 4 5.0-49.9, adult ([facility]/HCC V24, [facility]/HCC V28) 12/09/2011 DX:Morbid obesity wit h BMI of 45.0-49.9, adult ([facility]) MRSA carrier 11/09/2019 DX:MRSA carrier PATRICK (obstructive sleep apnea) 12/09/2011 DX :PATRICK (obstructive sleep apnea); COMMENT: N/A Pulmo 06/17/2016 ResScan 04/02/2016 to 05/01/2016. CPAP@ 4-12/Average 7.9/Max 8.6. 70% compliant with using the machine for >4 hours/day. Average use is 5 hours a night with AHI 0. Port-A-Cath in place 11/09/2019 DX:Port-A-C ath in place Vitamin D deficiency 07/20/2019 DX:Vitamin D deficiency Depression Migraine Urinary tract infection Rheumatoid arthritis (CMS/HC C V24, CMS/HCC V28) Anemia Family History Medical History Relation Name Comments No Known Problems Daughter x 2 health y daughters Stroke Father Igor Jiménez skin canc er Breast cancer Maternal Grandmother 70's CAD Other: HIV Mother AIDS No Known Problems Sister x 4 health y sisters No Known Problems Son x 3 health y sons Relation Name Status Comments Daughter Alive Father Igor Jiménez Alive Maternal Grandmother 70's Mother Sister Alive [...] for your loved ones. For example, child adolescent psychiatrist or elderly care for an older adult? [...] What is your living situation? 1 11/20/2023 Interpersonal Safety Answer Date Record ed Physical Abuse 12/27/2024 Verbal Abuse 12/27/2024 Comments No Sex and Gender Information Value Date Recorded Sex Assigned at Female 07/09/2021 9:10 AM EDT Legal Sex Female 11:23 AM EDT Gender Identity Female 07/09/2021 9:10 AM EDT Sexual Orientation Straight 07/09/2021 9: 10 AM EDT Obstetrics History Para Term AB IAB SAB Ectopic Multiple Livin g Live Births 7 5 5 0 2 1 1 0 0 5 5 Date Outcome GA Total Labor Labor/2nd/3rd Weight Sex Type Anes PTL Mari A1 A5 Name Clin 1993 Term 40w 0d 10h 00m/ 2863 g (101 oz) M Vag-S pont Epidur al Livin g Ludwig Machado Delivery Location:[facility] 1995 Term 40w 0d 3h 00m/ 2835 g (100 oz) M Vag-S pont Livin g Ladonna o Machado Delivery Location:[facility] 1997 SAB 1998 Term 40w 0d 4h 00m/ 2778 g (98 oz) F Vag-S pont Livin g Mireli a Machado Delivery Location:[facility] 2004 IAB 2008 Term 39w 2d 13h 00m/ 3430 g (121 oz) F Vag-S pont Epidur al Livin g 8 9 Bello Burgos BUBBA Delivery Location:[facility] 2010 Term 40w 3d 7h 52m/ 3402 g (120 oz) M Vag-S pont None Livin g 5 8 quinten burgos on Delivery Location:[facility] Last Filed Vital Signs Vital Sign Reading Time Taken Comments Blood Pressure 107/84 02/21/2025 1:47 PM EDT Pulse 89 02/21/2025 1:47 PM EDT Temperature 36.2 ??C (97.2 ??F) 02/14/2025 9:26 AM ED T Respiratory Rate 18 02/21/2025 1:47 PM EDT Oxygen Saturation 100% 02/14/2025 9:26 AM EDT Inhaled Oxygen Concentration - - Weight 85.7 kg (189 lb) 02/21/2025 1:47 PM EDT Height 154.9 cm (5' 1 ) 02/21/2025 1:47 PM EDT Body Mass Index 35.71 02/21/2025 1:47 PM EDT Plan of Treatment Upcoming Encounters Date Type Department Care Team (Late st Contact Info) Description 02/23/2025 8:30 AM EDT Appointment [facility] [address] [place] [address] 02/23/2025 9:45 AM EDT Office Visit Obstetrics & Gynecology - [address] [phone] Inocencia Muñoz, [facility] [address] [place] [address] 02/24/2025 9:00 AM EDT Ancillary Procedure [facility] [address] [phone] 03/02/2025 10:15 AM EDT Office Visit Bariatric Surgery - [place] [address] [phone] Iqra Puga PA [address] [address] 03/16/2025 3:45 PM EDT Consult [facility] [place] - [place] 175 [facility] [address] [place] [address] Crissy Jefferson MD [address] [place] [address] 05/02/2025 8:30 AM EDT Office Visit Adult Medicine [facility] [address] [place] [address] Fabio Moe PA [address] [place] [address] 05/19/2025 9:00 AM EDT Office Visit [facility] Hematology Oncology [address] [place] [address] Gagandeep Wright MD [address] [place] [address] Health Maintenance Due Date Last Done Comments Diabetes: Annual Foot Exam 1988 Cervical Cancer Screening: HPV 1999 Hepatitis B Vaccines (3 of 3 - 19+ 3-dose series) 07/19/2014 05/24/2014, 12/16/2007 Pneumococcal Vaccine: Pediatrics (0 to 5 Years) and At-Risk Patients (6 to 64 Years) (2 of 2 - PCV) 11/14/2014 11/14/2013 HIV Screening 06/18/2020 COVID-19 Vaccine ( season) 2024 07/09/2021, 11/28/2020, 11/07/2020 Diabetes: Blood Sugar Control Test (HGBA1C) 05/02/2025 11/02/2024, 08/04/2024, 03/08/2024 Social Influencers of Health Screening 09/19/2025 09/19/2024 Diabetes: Annual Retina Eye Exam 10/11/2025 10/11/2024 Diabetes: Annual Urine Albumin-Creatinine Ratio (uACR) 11/02/2025 11/02/2024 Diabetes: Annual GFR (Glomerular Filtration Rate) 02/14/2026 02/14/2025, 11/02/2024, 08/04/2024, Additional history exists Depression Screening 02/21/2026 02/21/2025 Breast Cancer Screening 11/30/2026 11/30/19, 11/16/2023, 11/28/2022, Additional history exists DTaP,Tdap,and Td Vaccines (3 - Td or Tdap) 07/26/2028 07/26/2018, 12/16/2007 Cholesterol Screening (Lipid Panel) 11/02/2029 11/02/2024, 08/04/2024, 03/08/2024 Colorectal Cancer Screening: Colonoscopy 12/27/2034 12/27/2024 MMR Vaccines Aged Out 05/27/2014 No longer [...] patient's age to complete this topic Meningococcal B Vaccine Aged Out No l onger eligible based on patient's age to complete this topic RSV Immunization Patients Under 20 months Aged Out No longer eligible based on patient's age to complete this topic Procedures Procedure Name Priority Date/Time Associated Diagnosis Comments POC URINE AUTO W/O MICRO Routine 02/21/2025 3:53 PM EDT Urinary pain Urinary frequency Pelvic pain in female CHLAMYDIA TRACHOMATIS AND NEISSERIA GONORRHOEAE PCR Routine 02/21/2025 2:17 PM EDT Pelvic pain in female TRICHOMONAS VAGINALIS ANTIGEN Routine 02/21/2025 2:03 PM EDT Acute vaginitis WET PREP, GENITAL Routine 02/21/2025 2:0 3 PM EDT Acute vaginitis CBC WITH AUTO DIFFERENTIAL Routine 02/14/2025 9:55 AM EDT 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 (CMS/HCC V24, CMS/HCC V28) CBC AND DIFFERENTIAL Routine 02/14/2025 9:55 AM EDT 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 (CMS/HCC V24, CMS/HCC V28) COMPREHENSIVE METABOLIC PANEL Routine 02/14/2025 9:55 AM EDT 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 (CMS/HCC V24, CMS/HCC V28) LACTATE DEHYDROGENASE Routine 02/14/2025 9:55 AM EDT 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 (CMS/HCC V24, CMS/HCC V28) IMMUNOGLOBULIN IGG Routine 02/14/2025 9: 55 AM EDT 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 (CMS/HCC V24, CMS/HCC V28) FERRITIN Routine 02/14/2025 9:55 AM EDT 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 (CMS/HCC V24, CMS/HCC V28) COLONOSCOPY Routine 12/27/2024 9:37 AM EDT GERD (gastroesophageal reflux disease) History of gastric ulcer EGD Routine 12/27/2024 9:37 AM EDT GERD (gastroesophageal reflux disease) History of gastric ulcer TISSUE EXAM Routine 12/27/2024 9:22 AM EDT GERD (gastroesophageal reflux disease) History of gastric ulcer XR CHEST 2 VIEWS STAT 12/07/2024 12:1 6 PM EST Acute cough US BREAST LIMITED LEFT Routine 3:05 PM EST Unspecified lump in the left breast, upper outer quadrant MG MAMMO DIGITAL DIAGNOSTIC W JAMEY BILAT Routine 11/30/2024 2:50 PM EST Other abnormal and inconclusive findings on diagnostic imaging of breast TRICHOMONAS VAGINALIS ANTIGEN Routine 11/25/2024 11:35 AM EST Acute vaginitis WET PREP, GENITAL Routine 11/25/2024 11: 35 AM EST Acute vaginitis POC URINE AUTO W/O MICRO Routine 11/25/2024 11:20 AM EST Urinary pain HEPATITIS C ANTIBODY Routine 11/02/2024 1:33 PM EST Right foot pain Anemia in neoplastic disease Acute non-recurrent frontal sinusitis Gastroesophageal reflux disease with esophagitis without hemorrhage Iron deficiency anemia due to chronic blood loss Mass of upper outer quadrant of left breast Vitamin D deficiency Anxiety and depression Type 2 diabetes mellitus without complication, without long-term current use of insulin ([facility] V24, CMS/[facility] V28) Hodgkin lymphoma, unspecified Hodgkin lymphoma type, unspecified body region (CMS/HCC V24, CMS/HCC V28) Mixed hyperlipidemia Mild ascending aorta dilation ([facility]/HCC V24) MICROALBUMIN CREATININE URINE RATIO Routine 11/02/2024 1:33 PM EST Right foot pain Anemia in neoplastic disease Acute non-recurrent frontal sinusitis Gastroesophageal reflux disease with esophagitis without hemorrhage Iron deficiency anemia due to chronic blood loss Mass of upper outer quadrant of left breast Vitamin D deficiency Anxiety and depression Type 2 diabetes mellitus without complication, without long-term current use of insulin (CMS/HCC V24, CMS/HCC V28) Hodgkin lymphoma, unspecified Hodgkin lymphoma type, unspecified body region (CMS/HCC V24, CMS/HCC V28) Mixed hyperlipidemia Mild ascending aorta dilation (CMS/HCC V24) HEMOGLOBIN A1C Routine 11/02/2024 1:33 PM EST Right foot pain Anemia in neoplastic disease Acute non-recurrent frontal sinusitis Gastroesophageal reflux disease with esophagitis without hemorrhage Iron deficiency anemia due to chronic blood loss Mass of upper outer quadrant of left breast Vitamin D deficiency Anxiety and depression Type 2 diabetes mellitus without complication, without long-term current use of insulin ([facility] V24, [facility] V28) Hodgkin lymphoma, unspecified Hodgkin lymphoma type, unspecified body region ([facility] V24, [facility] V28) Mixed hyperlipidemia Mild ascending aorta dilation ([facility] V24) LIPID PANEL WITH REFLEX TO DIRECT LDL [...] complication, without long-term current use of insulin ([facility] V24, [facility] V28) Hodgkin lymphoma, unspecified Hodgkin lymphoma type, unspecified body region ([facility] V24, [facility] V28) Mixed hyperlipidemia Mild ascending aorta dilation ([facility] V24) from Last 3 Months or Most Recently Relevant to Health Maintenance Results * (ABNORMAL) POC Urine Auto W/O Micro (02/21/2025 3:53 PM EDT) Only the most recent of2 resultswithin the time period is included. Color UA POC Dark Yellow Appearance UA POC Clear Glucose UA POC Negative Negative, Trace mg/dL Bilirubin UA POC Negative Negative, Small Ketones UA POC Negative Negative, Trace Specific [place] UA POC 1.025 Blood UA POC Large(A) Negative, Large PH UA POC 5.0 Protein UA POC 30(A) Negative, >=300 mg/dL Urobilinogen UA POC 0.2 E.U./dL mg/dL Nitrite UA POC Negative Negative Leukocytes UA POC Negative Negative Urine Urine specimen obtained by clean catch procedure / Unknown 02/21/2025 3:53 PM EDT Inocencia Muñoz CNM POINT OF CARE TEST ENTER/EDIT ORDERABLES Final Result * Chlamydia trachomatis and Neisseria gonorrhoeae molecular study (02/21/2025 2:17 PM EDT) Neisseria gonorrhoeae PCR Negative Negative LAB MOLECULAR DIAGNOSTICS METHOD 02/22/2025 9:39 AM EDT [facility] Chlamydia trachomatis PCR Negative Negative LAB MOLECULAR DIAGNOSTICS METHOD 02/22/2025 9:39 AM EDT [facility] Swab Urethral structure / Unknown Non-blood Collection / Unknown 02/21/2025 2:17 PM EDT 02/21/2025 2:17 PM EDT [facility] LAB MICROBIOLOGY - GENERAL OR DERABLES Final Result Performing Organization Address [facility] Co de Phone Number [facility] [address] [place] [address], * Trichomonas vaginalis antigen (02/21/2025 2:03 PM EDT) Only the most recent of2 resultswithin the time period is included. Trichomonas vaginalis Negative Negative 02/21/2025 9:20 PM EDT [facility] Swab Vaginal structure / Unknown Non-blood Collection / Unknown 02/21/2025 2:03 PM EDT 02/21/2025 2:03 PM EDT [facility] LAB MICROBIOLOGY - GENERAL OR DERABLES Final Result Performing Organization Address [facility] de Phone Number [facility] [address] [place] [address], [place] [phone] * Wet prep, genital (02/21/2025 2:03 PM EDT) Only the most recent of2 resultswithin the time period is included. Clue Cells, Wet Prep Negative Negative 02/21/2025 9:15 PM EDT [facility] Yeast, Wet Prep Negative Negative 02/21/2025 9:15 PM EDT [facility] Trichomonas, Wet Prep Indeterminate Negative 02/21/2025 9:15 PM EDT [facility] Comment:Refer to Trichomonas antigen. Swab Vaginal structure / Unknown Non-blood Collection / Unknown 02/21/2025 2:03 PM EDT 02/21/2025 2:03 PM EDT Inocencia Muñoz CNM LAB MICROBIOLOGY - GENERAL OR DERABLES Final Result [facility] [address] [place] [address], * (ABNORMAL) CBC auto differential (02/14/2025 9:55 AM EDT) WBC 5.8 4.8 - 10.8 K/mcL LAB HEMETOLOGY METHOD 02/14/2025 11:40 AM [facility] RBC 4.00 3.80 - 4.80 M/mcL LAB HEMETOLOGY METHOD 02/14/2025 11:40 AM [facility] Hemoglobin 11.1(L) 11.5 - 16.0 g/dL LAB HEMETOLOGY METHOD 02/14/2025 11:40 AM [facility] Hematocrit 34.2(L) 35.0 - 47.0 % LAB HEMETOLOGY METHOD 02/14/2025 11:40 AM [facility] MCV 84.7 79.0 - 98.0 FL LAB HEMETOLOGY METHOD 02/14/2025 11:40 AM [facility] MCH 27.5 27.0 - 32.0 pcg LAB HEMETOLOGY METHOD 02/14/2025 11:40 AM [facility] MCHC 32.5 32.0 - 37.0 g/dL LAB HEMETOLOGY METHOD 02/14/2025 11:40 AM [facility] RDW 14.4 11.0 - 15.0 % LAB HEMETOLOGY METHOD 02/14/2025 11:40 AM [facility] Platelets 288 130 - 400 K/mcL LAB HEMETOLOGY METHOD 02/14/2025 11:40 AM [facility] MPV 10.4 7.0 - 11.0 FL LAB HEMETOLOGY METHOD 02/14/2025 11:40 AM [facility] NRBC 0.0 <1.0 % LAB HEMETOLOGY METHOD 02/14/2025 11:40 AM [facility] NRBC Absolute 0.00 <0.10 K/mcL LAB HEMETOLOGY METHOD 02/14/2025 11:40 AM [facility] Neutrophils Relative 56.4 % LAB HEMETOLOGY METHOD 02/14/2025 11:40 AM [facility] Lymphocytes Relative 32.2 % LAB HEMETOLOGY METHOD 02/14/2025 11:40 AM [facility] Monocytes Relative 7.4 % LAB HEMETOLOGY METHOD 02/14/2025 11:40 AM [facility] Eosinophils Relative 2.7 % LAB HEMETOLOGY METHOD 02/14/2025 11:40 AM [facility] Basophils Relative 1.0 % LAB HEMETOLOGY METHOD 02/14/2025 11:40 AM [facility] Immature Granulocytes Relative 0.3 % LAB HEMETOLOGY METHOD 02/14/2025 11:40 AM [facility] Neutrophils Absolute 3.29 1.50 - 7.00 K/mcL LAB HEMETOLOGY METHOD 02/14/2025 11:40 AM [facility] Lymphocytes Absolute 1.88 1.00 - 5.00 K/mcL LAB HEMETOLOGY METHOD 02/14/2025 11:40 AM [facility] Monocytes Absolute 0.43 0.20 - 1.00 K/mcL LAB HEMETOLOGY METHOD 02/14/2025 11:40 AM [facility] Eosinophils Absolute 0.16 0.00 - 0.50 K/[facility] LAB HEMETOLOGY METHOD 02/14/2025 11:40 AM EDT [facility] Basophils Absolute 0.06 0.00 - 0.20 K/[facility] LAB HEMETOLOGY METHOD 02/14/2025 11:40 AM EDT [facility] Immature Granulocytes Absolute 0.02 0.00 - 0.03 K/[facility] LAB HEMETOLOGY METHOD 02/14/2025 11:40 AM EDT [facility] Blood Venous blood specimen / Unknown Venipuncture / Unknown 02/14/2025 9:55 AM EDT 02/14/2025 11:16 AM EDT us Gagandeep Wright MD LAB BLOOD ORDERABLE S Final Result Performing Organization Address [facility]/ZIP Co de Phone Number [facility] [address] [place] [address], * Lactate dehydrogenase (02/14/2025 9:55 AM EDT) Pathologist [facility] LDH 150 120 - 246 unit/L LAB CHEMISTRY METHOD 02/14/2025 11:43 AM EDT [facility] Blood Venous blood specimen / Unknown Venipuncture / Unknown 02/14/2025 9:55 AM EDT 02/14/2025 11:17 AM EDT Gagandeep Wright MD LAB BLOOD ORDERABLE S Final Result [facility] [address] [place] [address], * Immunoglobulin IgG (02/14/2025 9:55 AM EDT) Total IgG 1,140 549 - 1,584 mg/dL LAB CHEMISTRY METHOD 02/14/2025 11:43 AM EDT [facility] Blood Venous blood specimen / Unknown Venipuncture / Unknown 02/14/2025 9:55 AM EDT 02/14/2025 11:17 AM EDT us Gagandeep Wright MD LAB BLOOD ORDERABLE S Final Result [facility] [address] [place] [address], [place] [phone] * Ferritin (02/14/2025 9:55 AM EDT) Ferritin 12 8 - 252 ng/mL LAB CHEMISTRY METHOD 02/14/2025 11:43 AM EDT [facility] Blood Venous blood specimen / Unknown Venipuncture / Unknown 02/14/2025 9:55 AM EDT 02/14/2025 11:17 AM EDT Gagandeep Wright MD LAB BLOOD ORDERABLE S Final Result Performing Organization Address City/[facility]/ZIP Co de Phone Number [facility] [address] [place] [address], [place] [phone] * Comprehensive metabolic panel (02/14/2025 9:55 AM EDT) Sodium 140 133 - 145 mmol/L LAB CHEMISTRY METHOD 02/14/2025 11:43 AM EDT [facility] Potassium 3.7 3.5 - 5.5 mmol/L LAB CHEMISTRY METHOD 02/14/2025 11:43 AM EDT [facility] Chloride 107 96 - 110 mmol/L LAB CHEMISTRY METHOD 02/14/2025 11:43 AM EDT [facility] CO2 25 21 - 32 mmol/L LAB CHEMISTRY METHOD 02/14/2025 11:43 AM EDT [facility] Anion Gap 8 3 - 11 LAB CHEMISTRY METHOD 02/14/2025 11:43 AM EDT [facility] Glucose 95 70 - 100 mg/dL LAB CHEMISTRY METHOD 02/14/2025 11:43 AM [facility] BUN 13 5 - 25 mg/dL LAB CHEMISTRY METHOD 02/14/2025 11:43 AM [facility] Creatinine 0.54 0.50 - 1.10 mg/dL LAB CHEMISTRY METHOD 02/14/2025 11:43 AM [facility] eGFR 115 >=60 mL/min/1. 73m2 LAB CHEMISTRY METHOD 02/14/2025 11:43 AM [facility] Comment:Calculation based on the Chronic Kidney Disease Epidemiology Collaboration (CKD-EPI) equation refit without adjustment for race. BUN/Creatinine Ratio 24.1 LAB CHEMISTRY METHOD 02/14/2025 11:43 AM [facility] Calcium 9.3 8.5 - 10.5 mg/dL LAB CHEMISTRY METHOD 02/14/2025 11:43 AM [facility] AST (SGOT) 10 10 - 42 unit/L LAB CHEMISTRY METHOD 02/14/2025 11:43 AM [facility] ALT (SGPT) 16 10 - 60 unit/L LAB CHEMISTRY METHOD 02/14/2025 11:43 AM [facility] Alkaline Phosphatase 73 42 - 121 unit/L LAB CHEMISTRY METHOD 02/14/2025 11:43 AM [facility] Total Protein 6.9 6.0 - 8.0 g/dL LAB CHEMISTRY METHOD 02/14/2025 11:43 AM [facility] Albumin 3.4 3.2 - 5.0 g/dL LAB CHEMISTRY METHOD 02/14/2025 11:43 AM [facility] Total Bilirubin 0.8 0.0 - 1.4 mg/dL LAB CHEMISTRY METHOD 02/14/2025 11:43 AM [facility] Blood Venous blood specimen / Unknown Venipuncture / Unknown 02/14/2025 9:55 AM EDT 02/14/2025 11:17 AM EDT Gagandeep Wright MD LAB BLOOD ORDERABLE S Final Result Performing Organization Address [facility]/State/ZIP Co de Phone Number [facility] [address] [place] [address], * COLONOSCOPY Anesthesia - MAC; [facility] ENDOSCOPY (12/27/2024 9:37 AM EDT) Anatomical Region Laterality Modality Other 12/27/2024 9:26 AM EDT Impressions 12/27/2024 9:37 AM EDT - The examined portion of the ileum was normal. ? - Internal hemorrhoids. ? - The entire examined colon is normal. ? - No specimens collected. Recommendation: ?- Repeat colonoscopy in 10 years for screening ? purposes. Narrative 12/27/2024 9:[address] [facility] Patient Name: Igor Jiménez Procedure Date: 12/27/2024 9:26 AM Date of : 1980 Age: 44 Gender: Female Note Status: Finalized Attending MD: Marianna Lorenzo MD, Procedure Date No Time: 12/27/2024 Procedure: ? Colonoscopy Indications: ? Screening for colorectal malignant neoplasm Providers: ? Marianna Lorenzo MD Referring MD: ?Marianna Lorenzo MD, Fabio Moe PA-C Medicines: ? Propofol per Anesthesia Complications: ? No immediate complications. Estimated Blood Loss: ? Estimated blood loss: none. Procedure: ? Pre-Anesthesia Assessment: ? - ASA Grade Assessment: II - A patient with mild ? systemic disease. ? After I obtained informed consent, the scope was ? passed under direct vision. Throughout the procedure, ? the patient's blood pressure, pulse, and oxygen ? saturations were monitored continuously.The Olympus ? Pediatric Colonoscope was introduced through the anus ? and advanced to the terminal ileum. The colonoscopy ? was performed without difficulty. The patient ? tolerated the procedure well. The quality of the bowel ? preparation was excellent. Findings: ?The perianal and digital rectal examinations were ? normal. ? The terminal ileum appeared normal. ? Internal hemorrhoids were found during retroflexion. ? The hemorrhoids were Grade I (internal hemorrhoids ? that do not prolapse). ? The entire examined colon appeared normal. Procedure Code(s): ? --- Professional --- ? G0121, Colorectal cancer screening; colonoscopy on ? individual not meeting criteria for high risk Diagnosis Code(s): ? --- Professional --- ? Z12.11, Encounter for screening for malignant neoplasm ? of colon ? K64.0, First degree hemorrhoids CPT copyright 2020 [employer]. All rights reserved. The codes documented in this report are preliminary and upon dope mixer review may be revised to meet current compliance requirements. Marianna Lorenzo MD 12/27/2024 9:37:10 AM This report has been signed electronically.Marianna Lorenzo MD Number of Addenda: 0 Note Initiated On: 12/27/2024 9:26 AM Scope In: Scope Out: ? Endoscopy Department at [facility] - [address] [place] [address], ? [place] [phone] Procedure Note Marianna Lorenzo MD - 12/27/2024 [facility] Patient Name: Igor Jiménez Procedure Date: 12/27/2024 9:26 AM Date of : 1980 Age: 44 Gender: Female Note Status: Finalized Attending MD: Marianna Lorenzo MD, Procedure Date No Time: 12/27/2024 Procedure: Colonoscopy Indications: Screening for colorectal malignant neoplasm Providers: Marianna Lorenzo MD Referring MD: Marianna Lorenzo MD, Fabio Moe PA-C Medicines: Propofol per Anesthesia Complications: No immediate complications. Estimated Blood Loss: Estimated blood loss: none. Procedure: Pre-Anesthesia Assessment: - ASA Grade Assessment: II - A patient with mild systemic disease. After I obtained informed consent, the scope was passed under direct vision. Throughout theprocedure, the patient's blood pressure, pulse, and oxygen saturations were monitored continuously.The Olympus Pediatric Colonoscope was introduced through theanus and advanced to the terminal ileum. The colonoscopy was performed without difficulty. The patient tolerated the procedure well. The quality of thebowel preparation was excellent. Findings: The perianal and digital rectal examinations were normal. The terminal ileum appeared normal. Internal hemorrhoids were found duringretroflexion. The hemorrhoids were Grade I (internal hemorrhoids that do not prolapse). The entire examined colon appeared normal. Procedure Code(s): --- Professional --- G0121, Colorectal cancer screening; colonoscopy on individual not meeting criteria for high risk Diagnosis Code(s): --- Professional --- Z12.11, Encounter for screening for malignantneoplasm of colon K64.0, First degree hemorrhoids CPT copyright 2020 [employer]. All rights reserved. The codes documented in this report are preliminary and upon dope mixer reviewmay be revised to meet current compliance requirements. Marianna Lorenzo MD 12/27/2024 9:37:10 AM This report has been signed electronically.Marianna Lorenzo MD Number of Addenda: 0 Note Initiated On: 12/27/2024 9:26 AM Scope In: Scope Out: Endoscopy Department at [facility] - [address] [place] [phone] IMPRESSION: - The examined portion of the ileum was normal. - Internal hemorrhoids. - The entire examined colon is normal. - No specimens collected. Recommendation: - Repeat colonoscopy in 10 years for screening purposes. Marianna Lorenzo MD GI~PROCEDURE ORDERABLES Final Result * EGD Anesthesia - MAC; [facility] ENDOSCOPY (12/27/2024 9:37 AM EDT) Anatomical Region Laterality Modality Other 12/27/2024 9:09 AM EDT Impressions 12/27/2024 9:26 AM EDT - Normal esophagus. Biopsied. ? 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 Biopsied. ? - Normal examined duodenum. Recommendation: ?- Continue present medications. ? - Await pathology results. Narrative 12/27/2024 9:[address] [facility] Patient Name: Igor Jiménez Procedure Date: 12/27/2024 9:09 AM Date of : 1980 Age: 44 Gender: Female Note Status: Finalized Attending MD: Marianna Lorenzo MD, Procedure Date No Time: 12/27/2024 Procedure: ? Upper GI endoscopy Indications: ? Follow-up of gastro-esophageal reflux disease Providers: ? Marianna Lorenzo MD Referring MD: ?Fabio Moe PA-C Medicines: ? Propofol per Anesthesia Complications: ? No immediate complications. Estimated Blood Loss: ? Estimated blood loss: none. Procedure: ? Pre-Anesthesia Assessment: ? - ASA Grade Assessment: II - A patient with mild ? systemic disease. ? After obtaining informed consent, the endoscope was ? passed under direct vision. Throughout the procedure, ? the patient's blood pressure, pulse, and oxygen ? saturations were monitored continuously.The Olympus ? Gastroscope was introduced through the mouth, and ? advanced to the second part of duodenum. The upper GI ? endoscopy was accomplished without difficulty. The ? patient tolerated the procedure well. Findings: ?The examined esophagus was normal. Biopsies were taken ? with a cold forceps for histology. ? Evidence of a sleeve gastrectomy was found in the ? stomach. This was characterized by healthy appearing ? mucosa. Biopsies were taken with a cold forceps for ? histology. ? The examined duodenum was normal. Procedure Code(s): ? --- Professional --- ? 86601, Esophagogastroduodenoscopy, flexible, ? transoral; with biopsy, single or multiple Diagnosis Code(s): ? --- Professional --- ? Z98.84, Bariatric surgery status ? K21.9, Gastro-esophageal reflux disease without ? esophagitis CPT copyright 2020 [employer]. All rights reserved. The codes documented in this report are preliminary and upon dope mixer review may be revised to meet current compliance requirements. Marianna Lorenzo MD 12/27/2024 9:26:34 AM This report has been signed electronically.Marianna Lorenzo MD Number of Addenda: 0 Note Initiated On: 12/27/2024 9:09 AM Scope In: Scope Out: ? Endoscopy Department at [facility] - [address] [place] [address], ? [place] [phone] Procedure Note Marianna Lorenzo MD - 12/27/2024 [facility] Patient Name: Igor Jiménez Procedure Date: 12/27/2024 9:09 AM Date of : 1980 Age: 44 Gender: Female Note Status: Finalized Attending MD: Marianna Lorenzo MD, Procedure Date No Time: 12/27/2024 Procedure: Upper GI endoscopy Indications: Follow-up of gastro-esophageal reflux disease Providers: Marianna Lorenzo MD Referring MD: Fabio Moe PA-C Medicines: Propofol per Anesthesia Complications: No immediate complications. Estimated Blood Loss: Estimated blood loss: none. Procedure: Pre-Anesthesia Assessment: - ASA Grade Assessment: II - A patient with mild systemic disease. After obtaining informed consent, the endoscope was passed under direct vision. Throughout theprocedure, the patient's blood pressure, pulse, and oxygen saturations were monitored continuously.The Olympus Gastroscope was introduced through the mouth, and advanced to the second part of duodenum. The upperGI endoscopy was accomplished without difficulty. The patient tolerated the procedure well. Findings: The examined esophagus was normal. Biopsies weretaken with a cold forceps for histology. Evidence of a sleeve gastrectomy was found in the stomach. This was characterized by healthyappearing mucosa. Biopsies were taken with a cold forceps for histology. The examined duodenum was normal. Procedure Code(s): --- Professional --- 03692, Esophagogastroduodenoscopy, flexible, transoral; with biopsy, single or multiple Diagnosis Code(s): --- Professional --- Z98.84, Bariatric surgery status K21.9, Gastro-esophageal reflux disease without esophagitis CPT copyright 2020 [employer]. All rights reserved. The codes documented in this report are preliminary and upon dope mixer reviewmay be revised to meet current compliance requirements. Marianna Lorenzo MD 12/27/2024 9:26:34 AM This report has been signed electronically.Marianna Lorenzo MD Number of Addenda: 0 Note Initiated On: 12/27/2024 9:09 AM Scope In: Scope Out: Endoscopy Department at [facility] - [address] [place] [phone] IMPRESSION: - Normal esophagus. Biopsied. 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 Biopsied. - Normal examined duodenum. Recommendation: - Continue present medications. - Await pathology results. Marianna Lorenzo MD GI~PROCEDURE ORDERABLES Final Result * Tissue exam (12/27/2024 9:22 AM EDT) Final Diagnosis A. Stomach, random gastric biopsies: - Gastric antral mucosa with mild reactive changes. - Gastric oxyntic mucosa with mild parietal cell hyperplasia as seen in PPI therapy. - No Helicobacter pylori organisms are morphologically identified. B. Esophagus, biopsies: - Esophageal squamous mucosa with no specific pathologic changes. - Negative for intestinal metaplasia and intraepithelial eosinophils. 12/28/2024 11:14 AM EDT [facility] Gross Description A. Stomach, random gastric biopsies: Labeled random stomach . Received in formalin are four irregular ramirez mucosal tissue fragments, ranging from 0.3 cm to 0.5 cm in greatest dimension, which are wrapped in paper and submitted in toto in one cassette, four pieces, multiple levels on one slide. B. Esophagus, biopsies: Labeled esophagus biopsies . Received in formalin are three irregular pink-white mucosal tissue fragments, each measuring approximately 0.3 cm in greatest dimension, which are wrapped in paper and submitted in toto in one cassette, three pieces, multiple levels on one slide. AKSHAT 12/28/2024 11:14 AM EDT [facility] Disclaimer Unless otherwise specified, all tissue is 10% NB formalin fixed and paraffin embedded. 12/28/2024 11:14 AM EDT [facility] Tissue Stomach structure / Unknown 12/27/2024 9:22 AM EDT 12/27/2024 11:42 AM EDT Tissue specimen (specimen) Esophageal structure / Unknown 12/27/2024 9:23 AM EDT 12/27/2024 11:42 AM EDT us Marianna Lorenzo MD LAB PATHOLOGY ORDERABLES Final Result [facility] [address] [place] [address], * XR Chest 2 Views (12/07/2024 12:16 PM EST) Anatomical Region Laterality Modality Body Radiographic Mari ging 12/07/2024 12:5 1 PM EST Impressions 12/07/2024 12:55 PM EST No acute cardiopulmonary process. -------- FINAL REPORT -------- Dictated By: Filiberto Martin Dictated Date: 12/07/2024 12:51 ET Assigned Physician: Filiberto Martin Reviewed and Electronically Signed By: Filiberto Martin Signed Date: 12/07/2024 12:55 ET Workstation ID: [id number] Transcribed By: Self Edit Transcribed Date: 12/07/2024 12:51 ET Narrative 12/07/2024 12:55 PM EST HISTORY: cough TECHNIQUE: PA and lateral radiographs of the chest COMPARISON: Chest radiograph from 06/23/2024 FINDINGS: There is a normal cardiomediastinal silhouette. The lungs are clear. The osseous structures are intact. ??Surgical roxane overlying the right chest wall. Procedure Note Filiberto Martin MD - 12/07/2024 HISTORY: cough TECHNIQUE: PA and lateral radiographs of the chest COMPARISON: Chest radiograph from 06/23/2024 FINDINGS: There is a normal cardiomediastinal silhouette. The lungs are clear. Theosseous structures are intact. Surgical roxane overlying the right chestwall. IMPRESSION: No acute cardiopulmonary process. -------- FINAL REPORT -------- Dictated By: Filiberto Martin Dictated Date: 12/07/2024 12:51 ET Assigned Physician: Filiberto Martin Reviewed and Electronically Signed By: Filiberto Martin Signed Date: 12/07/2024 12:55 ET Workstation ID: [id number] Transcribed By: Self Edit Transcribed Date: 12/07/2024 12:51 ET us Chacorta Fish MD IMG XR PROCEDURES Final Result * US Breast Limited Left (11/30/2024 3:05 PM EST) Anatomical Region Laterality Modality Breast Left Ultrasound 11/30/2024 3:21 PM EST Impressions 11/30/2024 3:58 PM EST RIGHT BREAST: Benign, no evidence of malignancy. Normal interval follow-up is recommended in 12 months. LEFT BREAST: Benign, no evidence of malignancy. Normal interval follow-up is recommended in 12 months. Findings and recommendations were conveyed to the patient via mining engineering technologist. ?? BREAST DENSITY: B - There are scattered areas of fibroglandular density. ?? BI-RADS CATEGORY: 2 - BENIGN RECOMMENDATION: Mammography: Screening bilateral mammogram is recommended in 1 year. Ultrasound: Screening bilateral mammogram is recommended in 1 year. Mammo Location: [facility], [address] [place] [address], [id number], . -------- FINAL REPORT -------- Dictated By: Merlyn Berry Dictated Date: 11/30/2024 15:21 ET Assigned Physician: Merlyn Berry Reviewed and Electronically Signed By: Merlyn Berry Signed Date: 11/30/2024 15:58 ET Workstation ID: [id number] Transcribed By: Self Edit Transcribed Date: 11/30/2024 15:38 ET Narrative 11/30/2024 3:58 PM EST HISTORY: Short-term follow-up of incidentally found 0.5 cm left breast cluster of cysts or cyst with septation at 1 o'clock position 6 cm from the nipple, which was first described on November 16, 2023. STUDIES: 1. Bilateral diagnostic mammography with tomosynthesis and CAD 2. Targeted ultrasound of the right breast. TECHNIQUE: Bilateral digital diagnostic mammography is obtained and read in conjunction with computer-aided detection. ??Tomosynthesis as well as 2-D C view imaging were obtained. COMPARISON: Comparison made to multiple prior mammograms, most recent November 16, 2023, and most remote September 08, 2018. ??Prior ultrasound studies on November 16, 2023; November 24, 2023 and May 24, 2024. RIGHT BREAST: Surgical clips in the right axillary region. No significant masses, suspicious calcifications or other abnormalities are seen in either breast. LEFT BREAST: No significant masses, suspicious calcifications or other abnormalities are seen in either breast. Targeted ultrasound of the left breast was performed at the location of the previously described sonographic finding. ??The survey shows a 0.5 x 0.3 x 0.5 cm cluster of cysts or septated cyst at 1 o'clock position at 6 cm from the nipple. ??No internal vascularity demonstrated with color Doppler evaluation. ??The content of the cysts is anechoic. ??Prior measurements of 0.5 x 0.4 x 0.3 cm on May 24, 2024 and 0.5 x 0.2 x 0.5 cm on November 24, 2023. ??At this point, no dedicated ultrasound follow-up is required. Procedure Note Merlyn Berry MD - 11/30/2024 HISTORY: Short-term follow-up of incidentally found 0.5 cm left breastcluster of cysts or cyst with septation at 1 o'clock position 6 cm fromthe nipple, which was first described on November 16, 2023. STUDIES: 1. Bilateral diagnostic mammography with tomosynthesis and CAD 2. Targeted ultrasound of the right breast. TECHNIQUE: Bilateral digital diagnostic mammography is obtained and readin conjunction with computer-aided detection. Tomosynthesis as well as2-D C view imaging were obtained. COMPARISON: Comparison made to multiple prior mammograms, most recentFebr2023, and most remote September 08, 2018. Prior ultrasoundstudies on November 16, 2023; November 24, 2023 and May 24, 2024. RIGHT BREAST: Surgical clips in the right axillary region. No significantmasses, suspicious calcifications or other abnormalities are seen ineither breast. LEFT BREAST: No significant masses, suspicious calcifications or otherabnormalities are seen in either breast. Targeted ultrasound of the left breast was performed at the location ofthe previously described sonographic finding. The survey shows a 0.5 x0.3 x 0.5 cm cluster of cysts or septated cyst at 1 o'clock position at 6cm from the nipple. No internal vascularity demonstrated with colorDoppler evaluation. The content of the cysts is anechoic. Priormeasurements of 0.5 x 0.4 x 0.3 cm on May 24, 2024 and 0.5 x 0.2 x 0.5cm on November 24, 2023. At this point, no dedicated ultrasound follow-upis required. IMPRESSION: RIGHT BREAST: Benign, no evidence of malignancy. Normal interval follow-upis recommended in 12 months. LEFT BREAST: Benign, no evidence of malignancy. Normal interval follow-upis recommended in 12 months. Findings and recommendations were conveyed to the patient via ultrasoundtechnologist. BREAST DENSITY: B - There are scattered areas of fibroglandular density. BI-RADS CATEGORY: 2 - BENIGN RECOMMENDATION: Mammography: Screening bilateral mammogram is recommended in 1 year. Ultrasound: Screening bilateral mammogram is recommended in 1 year. Mammo Location: [facility], [address] [place] [address], [id number], . -------- FINAL REPORT -------- Dictated By: Merlyn Berry Dictated Date: 11/30/2024 15:21 ET Assigned Physician: Merlyn Berry Reviewed and Electronically Signed By: Merlyn Berry Signed Date: 11/30/2024 15:58 ET Workstation ID: [id number] Transcribed By: Self Edit Transcribed Date: 11/30/2024 15:38 ET us Fahad Amaral MD IMG US PROCEDURES Final Res ult * MG Mammo Digital Diagnostic w Jamey bilat (11/30/2024 2:50 PM EST) Anatomical Region Laterality Modality Breast Bilateral Mammography 11/30/2024 3:21 PM EST Impressions 11/30/2024 3:58 PM EST RIGHT BREAST: Benign, no evidence of malignancy. Normal interval follow-up is recommended in 12 months. LEFT BREAST: Benign, no evidence of malignancy. Normal interval follow-up is recommended in 12 months. Findings and recommendations were conveyed to the patient via mining engineering technologist. ?? BREAST DENSITY: B - There are scattered areas of fibroglandular density. ?? BI-RADS CATEGORY: 2 - BENIGN RECOMMENDATION: Mammography: Screening bilateral mammogram is recommended in 1 year. Ultrasound: Screening bilateral mammogram is recommended in 1 year. Mammo Location: [facility], [address] [place] [address], [id number], . -------- FINAL REPORT -------- Dictated By: Merlyn Berry Dictated Date: 11/30/2024 15:21 ET Assigned Physician: Merlyn Berry Reviewed and Electronically Signed By: Merlyn Berry Signed Date: 11/30/2024 15:58 ET Workstation ID: [id number] Transcribed By: Self Edit Transcribed Date: 11/30/2024 15:38 ET Narrative 11/30/2024 3:58 PM EST HISTORY: Short-term follow-up of incidentally found 0.5 cm left breast cluster of cysts or cyst with septation at 1 o'clock position 6 cm from the nipple, which was first described on November 16, 2023. STUDIES: 1. Bilateral diagnostic mammography with tomosynthesis and CAD 2. Targeted ultrasound of the right breast. TECHNIQUE: Bilateral digital diagnostic mammography is obtained and read in conjunction with computer-aided detection. ??Tomosynthesis as well as 2-D C view imaging were obtained. COMPARISON: Comparison made to multiple prior mammograms, most recent November 16, 2023, and most remote September 08, 2018. ??Prior ultrasound studies on November 16, 2023; November 24, 2023 and May 24, 2024. RIGHT BREAST: Surgical clips in the right axillary region. No significant masses, suspicious calcifications or other abnormalities are seen in either breast. LEFT BREAST: No significant masses, suspicious calcifications or other abnormalities are seen in either breast. Targeted ultrasound of the left breast was performed at the location of the previously described sonographic finding. ??The survey shows a 0.5 x 0.3 x 0.5 cm cluster of cysts or septated cyst at 1 o'clock position at 6 cm from the nipple. ??No internal vascularity demonstrated with color Doppler evaluation. ??The content of the cysts is anechoic. ??Prior measurements of 0.5 x 0.4 x 0.3 cm on May 24, 2024 and 0.5 x 0.2 x 0.5 cm on November 24, 2023. ??At this point, no dedicated ultrasound follow-up is required. Procedure Note Merlyn Berry MD - 11/30/2024 HISTORY: Short-term follow-up of incidentally found 0.5 cm left breastcluster of cysts or cyst with septation at 1 o'clock position 6 cm fromthe nipple, which was first described on November 16, 2023. STUDIES: 1. Bilateral diagnostic mammography with tomosynthesis and CAD 2. Targeted ultrasound of the right breast. TECHNIQUE: Bilateral digital diagnostic mammography is obtained and readin conjunction with computer-aided detection. Tomosynthesis as well as2-D C view imaging were obtained. COMPARISON: Comparison made to multiple prior mammograms, most recentFebruary 2023, and most remote September 08, 2018. Prior ultrasoundstudies on November 16, 2023; November 24, 2023 and May 24, 2024. RIGHT BREAST: Surgical clips in the right axillary region. No significantmasses, suspicious calcifications or other abnormalities are seen ineither breast. LEFT BREAST: No significant masses, suspicious calcifications or otherabnormalities are seen in either breast. Targeted ultrasound of the left breast was performed at the location ofthe previously described sonographic finding. The survey shows a 0.5 x0.3 x 0.5 cm cluster of cysts or septated cyst at 1 o'clock position at 6cm from the nipple. No internal vascularity demonstrated with colorDoppler evaluation. The content of the cysts is anechoic. Priormeasurements of 0.5 x 0.4 x 0.3 cm on May 24, 2024 and 0.5 x 0.2 x 0.5cm on November 24, 2023. At this point, no dedicated ultrasound follow-upis required. IMPRESSION: RIGHT BREAST: Benign, no evidence of malignancy. Normal interval follow-upis recommended in 12 months. LEFT BREAST: Benign, no evidence of malignancy. Normal interval follow-upis recommended in 12 months. Findings and recommendations were conveyed to the patient via ultrasoundtechnologist. BREAST DENSITY: B - There are scattered areas of fibroglandular density. BI-RADS CATEGORY: 2 - BENIGN RECOMMENDATION: Mammography: Screening bilateral mammogram is recommended in 1 year. Ultrasound: Screening bilateral mammogram is recommended in 1 year. Mammo Location: [facility], [address] [place] [address], [id number], . -------- FINAL REPORT -------- Dictated By: Merlyn Berry Dictated Date: 11/30/2024 15:21 ET Assigned Physician: Merlyn Berry Reviewed and Electronically Signed By: Merlyn Berry Signed Date: 11/30/2024 15:58 ET Workstation ID: [id number] Transcribed By: Self Edit Transcribed Date: 11/30/2024 15:38 ET Fahad Amaral MD IMG BI PROCEDURES Final Res ult * Hepatitis C antibody (11/02/2024 1:33 PM EST) [facility] Hepatitis C Antibody Negative Negative LAB CHEMISTRY METHOD 11/02/2024 5:19 PM EST [facility] Blood Venous blood specimen / Unknown Venipuncture / Unknown 11/02/2024 1:33 PM EST 11/02/2024 1:33 PM EST Fabio MENDOZA LAB BLOOD ORDERABLES Maria Luisa l Result [facility] [address] [place] [address], [place] [phone] * (ABNORMAL) Lipid panel with reflex to direct LDL (11/02/2024 1:33 PM EST) [facility] Cholesterol 215(H) 0 - 200 mg/dL LAB CHEMISTRY METHOD 11/02/2024 4:55 PM [facility] Triglycerides 187(H) 0 - 150 mg/dL LAB CHEMISTRY METHOD 11/02/2024 4:55 PM [facility] HDL 63 >=40 mg/dL LAB CHEMISTRY METHOD 11/02/2024 4:55 PM [facility] LDL Calculated 115(H) 0 - 100 mg/dL LAB CHEMISTRY METHOD 11/02/2024 4:55 PM [facility] VLDL Cholesterol Jono 37.4 mg/dL LAB CHEMISTRY METHOD 11/02/2024 4:55 PM [facility] Non HDL Chol. (LDL+VLDL) 152(H) <145 mg/dL LAB CHEMISTRY METHOD 11/02/2024 4:55 PM [facility] Chol/HDL Ratio 3.4 0.0 - 4.4 LAB CHEMISTRY METHOD 11/02/2024 4:55 PM [facility] Blood Venous blood specimen / Unknown Venipuncture / Unknown 11/02/2024 1:33 PM EST 11/02/2024 1:33 PM EST Fabio MENDOZA LAB BLOOD ORDERABLES Maria Luisa l Result Performing Organization Address [facility]/ZIP Co de Phone Number [facility] [address] [place] [address], [place] [phone] * Microalbumin creatinine urine ratio (11/02/2024 1:33 PM EST) Creatinine, Urine 99.0 mg/dL LAB CHEMISTRY METHOD 11/02/2024 4:55 PM EST [facility] Microalb, Ur 7.0 0.0 - 29.0 mg/L LAB CHEMISTRY METHOD 11/02/2024 4:55 PM EST [facility] Microalb/Creat Ratio 7 <30 mg/g creat LAB CHEMISTRY METHOD 11/02/2024 4:55 PM EST [facility] Urine Urine specimen obtained by clean catch procedure / Unknown Non-blood Collection / Unknown 11/02/2024 1:33 PM EST 11/02/2024 1:33 PM EST Fabio MENDOZA LAB URINE ORDERABLES Maria Luisa l Result Performing Organization Address City/[facility]/ZIP Co de Phone Number [facility] [address] [place] [address], [place] [phone] * Hemoglobin A1c (11/02/2024 1:33 PM EST) Hemoglobin A1C 5.8 <6.5 % LAB CHEMISTRY METHOD 11/02/2024 8:28 PM EST [facility] Mean Bld Glu Estim. 120 mg/dL LAB CHEMISTRY METHOD 11/02/2024 8:28 PM EST [facility] Blood Venous blood specimen / Unknown Venipuncture / Unknown 11/02/2024 1:33 PM EST 11/02/2024 1:33 PM EST Fabio MENDOZA LAB BLOOD ORDERABLES Maria Luisa fay Result [facility] [address] [place] [address], from Last 3 Months or Most Recently Relevant to Health Maintenance Insurance [facility] [employer] Care Teams Braille Operator Relationship Specialty Start Date End Date Fabio Moe PA [address] [place] [id number] PCP - General Internal Medicine 04/23/20
--- OUTSIDE RECORDS SUMMARY | 2025-02-22 10:58 | XMS_ITS | Encounter Summary ---
Author Organization [employer] Address [address] [place] [address] Care Team Providers Care Slab Conditioner Supervisor Name Role Phone Fabio Moe Primary Care Provider [phone] Reason for Referral * Consultation (Routine) - Closed Specialty Diagnoses / Procedures Referred By Citlalli gallegos Referred To Contact Urology Diagnoses Recurrent UTI Inocencia Muñoz CNM [address] [place] [address] Phone: tel: fax: [facility] [address] Phone: tel: Referral ID Status Reason Start Date Expiration Date V isits Requested Visits Authorized [id number] Closed Specialty Services Required 02/21/2025 02/21/2026 1 1 Reason for Visit * Reason Comments Blood in Urine Encounter Details Date Type Department Care Team (Latest Contact Info) Description 02/21/2025 1:45 PM EDT Office Visit Obstetrics [facility]necology [facility] [address] [place] [address] Inocencia Muñoz CNM [address] [place] [address] Urinary pain (Primary Dx); Acute vaginitis; Urinary frequency; Recurrent UTI; Pelvic pain in female Social History Tobacco Use Types Packs/Day Years [...] for your loved ones. For example, child specialist or elderly care for an older [...] Orientation Straight 07/09/2021 9: 10 AM EDT documented as of this encounter Last Filed Vital Signs Vital Sign Reading Time Taken Comments Blood Pressure 107/84 02/21/2025 1:47 PM EDT Pulse 89 02/21/2025 1:47 PM EDT Temperature - - Respiratory Rate 18 02/21/2025 1:47 PM EDT Oxygen Saturation - - Inhaled Oxygen Concentration - - Weight 85.7 kg (189 lb) 02/21/2025 1:47 PM EDT Height 154.9 cm (5' 1 ) 02/21/2025 1:47 PM EDT Body Mass Index 35.71 02/21/2025 1:47 PM EDT documented in this encounter Ordered Prescriptions Prescription Sig Dispense Quantity Refills Last Filled Start Date End Date sulfamethoxazole-t rimethoprim (BACTRIM DS,SEPTRA DS) 800-160 mg per tablet Take 1 tablet by mouth 2 (two) times a day for 5 days. 10 tablet 02/21/2025 02/26/2025 documented in this encounter Progress Notes * Inocencia Muñoz CNM - 02/21/2025 1:45 PM EDT No chief complaint on file. Igor GREY 1980 44 y.o. Answers submitted by the patient for this visit: Abdominal Pain Questionnaire (Submitted on 02/21/2025) Chief Complaint: Abdominal pain Chronicity: new Onset: yesterday Onset quality: sudden Frequency: constantly Episode duration: 24 Hours Progression since onset: rapidly worsening Pain location: LLQ Pain - numeric: 10/10 Pain quality: aching, burning, cramping, dull, a sensation of fullness, sharp Radiates to: LLQ, LUQ, back, pelvis anorexia: Yes arthralgias: Yes belching: No constipation: No diarrhea: No dysuria: Yes fever: Yes flatus: No frequency: Yes headaches: Yes hematochezia: No hematuria: Yes melena: No myalgias: Yes nausea: No weight loss: No vomiting: No Aggravated by: deep breathing, movement, urination She also reports vaginal discharge Hysterectomy status Hx recurrent UTI per pt report ROS GENERAL: No malaise, significant weight loss or fever , but feels she has the chills, took her tempat home and reports afebrile. RESPIRATORY: No cough, wheezing or shortness of breath CARDIOVASCULAR: No chest pain, leg swelling or palpitations GI: No abdominal discomfort, blood in stools or black stools/ negative for change in bowel habits. : see HPI IDENTIFICATION PRINTING MACHINE SETTER: See HPI MUSCULOSKELETAL: No joint pain or swelling, back pain, or muscle pain. SKIN: No lesions, rash or itching PSYCH: No sleep disturbance, mood disorder or recent psychosocial stressors. HEMATOLOGY/LYMPHOLOGY No prolonged bleeding, easy bruisability or swollen nodes Past Medical History: Diagnosis Date Abnormal chest x-ray 03/03/2019 DX:Abnormal chest x-ray; COMMENT: 02/20 - recommended follow up chest CT Acanthosis nigricans 12/09/2012 DX:Acanthosis nigricans Anemia Asthma 11/14/2013 DX:Asthma Depression Diabetes mellitus type 2, uncomplicated (CMS/HCC V24, CMS/HCC V28) 10/25/2018 DX:Diabetes mellitus type 2, uncomplicated (HCC) Functional dyspepsia 06/01/2018 DX:Functional dyspepsia Gallbladder polyp 12/17/2015 DX:Gallbladder polyp GERD (gastroesophageal reflux disease) 04/25/2011 DX:GERD (gastroesophageal reflux disease) Hepatomegaly 12/17/2015 DX:Hepatomegaly; COMMENT: US 09/21/2018 Hodgkin lymphoma (CMS/HCC V24, CMS/HCC V28) 10/20/2018 DX:Hodgkin lymphoma (HCC); COMMENT: Right lymph node excision, reported 10/18/2018, 6 months ABVD chemo 2D ECHO 02/08/19 EF 60-65% Hyperlipidemia 08/09/2017 DX:Hyperlipidemia; COMMENT: LDL 155, 08/08/2017 Menorrhagia with regular cycle 09/13/2018 DX:Menorrhagia with regular cycle; COMMENT: Tried Mirena IUD with BTB and had this removed 10/2018 Benign EMB 11/04/18 FAHAD WRIGHT MD Migraine Morbid obesity with BMI of 45.0-49.9, adult ([facility] V24, [facility] V28) 12/09/2011 DX:Morbid obesity with BMI of 45.0-49.9, adult ([facility]) MRSA carrier 11/09/2019 DX:MRSA carrier PATRICK (obstructive sleep apnea) 12/09/2011 DX:PATRICK (obstructive sleep apnea); COMMENT: N/A Pulmo 06/17/2016 ResScan 04/02/2016 to 05/01/2016. CPAP@ 4-12/Average 7.9/Max 8.6. 70% compliant with using the machine for >4 hours/day. Average use is5 hours a night with AHI 0. Port-A-Cath in place 11/09/2019 DX:Port-A-Cath in place Rheumatoid arthritis ([facility] V24[place] [facility] V28) Urinary tract infection Vitamin D deficiency 07/20/2019 DX:Vitamin D deficiency Past Surgical History: Procedure Laterality Date ABDOMINAL SURGERY 02/2021 PROCEDURE: HISTORICAL ABDOMINAL SURGERY; COMMENT: sleeve gastrectomy dr. alfaro HYSTERECTOMY 12/17/2022 PROCEDURE: HISTORICAL VAGINAL HYSTERECTOMY W/O BSO; COMMENT: menorrhagia, adenomyosis- Cristin OTHER SURGICAL HISTORY 11/2018 PROCEDURE: BONE MARROW BIOPSY; COMMENT: negative for disease in setting of Hodgkin Lymphoma OTHER SURGICAL HISTORY PROCEDURE: SC CHEMOTX ADMN PERTL CAVITY IMPLANTED PORT/CATH; COMMENT: Port A Cath TUBAL LIGATION PROCEDURE: HISTORICAL TUBAL LIGATION UPPER GASTROINTESTINAL ENDOSCOPY 12/31/17 [facility] PROCEDURE: SC UPPER GI ENDOSCOPY PERFORMED; COMMENT: erosions and erythema antrum and bulb; nl esophagus, but free flow of gastric contents. Active duodenitis with H. pylori; chronic gastritis with H. pylori OB History Para Term AB Living 7 5 5 0 2 5 SAB IAB Ectopic Multiple Live Births 1 1 0 0 5 # Outcome Date GA Lbr Salvatore/2nd Weight Sex Type Anes PTL Lv 7 Term 07/14/11 40w3d 07:52 3402 g (120 oz) M Vag-Spont None ANAND 6 Term 10/02/09 39w2d 13:00 3430 g (121 oz) F Vag-Spont EPI ANAND 5 IAB 2004 4 Term 1998 40w0d 04:00 2778 g (98 oz) F Vag-Spont ANAND 3 SAB 1997 2 Term 10/01/96 40w0d 03:00 2835 g (100 oz) M Vag-Spont ANAND 1 Term 01/29/94 40w0d 10:00 2863 g (101 oz) M Vag-Spont EPI ANAND OBJECTIVE Visit Vitals BP 107/84 (BP Location: Left arm, Patient Position: Sitting) Pulse 89 Resp 18 Ht 1.549 m (61 ) Wt 85.7 kg (189 lb) BMI 35.71 kg/m?? OB Status Hysterectomy Smoking Status Former BSA 1.84 m?? Component Latest Ref Rng 02/21/2025 Color UA POC Dark Yellow Appearance UA POC Clear Glucose UA POC Negative, Trace mg/dL Negative Bilirubin UA POC Negative, Small Negative Ketones UA POC Negative, Trace Negative Specific Ceres UA POC 1.025 Blood UA POC Negative, Large Large ! PH UA POC 5.0 Protein UA POC Negative, >=300 mg/dL 30 ! Urobilinogen UA POC mg/dL 0.2 E.U./dL Nitrite UA POC Negative Negative Leukocytes UA POC Negative Negative Legend: ! Abnormal APPEARANCE: Alert and in no acute distress, healthy, cooperative LUNG: Assessment: No increased work of breathing or signs of respiratory distress ABDOMEN: soft, non-tender, without organomegaly or palpable masses BACK: + CVA tenderness LYMPHATICS: no inguinal adenopathy IDENTIFICATION PRINTING MACHINE SETTER: Normal external genitalia and urethra Vagina without abnormality ; + scant white discharge Uterus/Cervix surgically absent./ Normal adnexa without tenderness RECTAL: without lesion, hemorrhoid, prolapse NEURO: Awake, alert and oriented x 3 SKIN: Skin color, texture, turgor normal. No rashes or lesions. This is to document that Igor Jiménez was given the opportunity to have a fly fishing guide present during a sensitive examination at today's visit. She decline this offer of a fly fishing guide. Diagnoses and all orders for this visit: 1. Urinary pain - Culture urine 2. Acute vaginitis - Wet prep, genital 3. Urinary frequency - Culture urine 4. Recurrent UTI - Ambulatory referral to Urology; Future 5. Pelvic pain in female - Chlamydia trachomatis and Neisseria gonorrhoeae molecular study Other orders - sulfamethoxazole-trimethoprim; Take 1 tablet by mouth 2 (two) times a day for 5 days. Will start prophylaxis abx and adjust if needed pending results Enc to push po fluids including cranberry juice/supplements If worsening of sx, increased pain ,fever , vomiting then go tot he ER. Pt can take NSAIDs apply heat as needed, for pelvic/back pain. Pt voices understanding and agrees with plan . Pending results will adjust treatment as needed. She is instructed to keep all followup appts with bariatrics and cardiology and she is [place] for MRI this week Inocencia Muñoz CNM Note about provider documentation: If you are the patient named in this chart and are reviewing your medical notes, please note that medical documentation is often written with abbreviations and medical terminology, and directed for other providers who may be involved in your care as well. Documentation is critical to record what has happened, what test were ordered, and how they are interpreted w ith the resulting diagnoses. These notes have been made available for patient review but not specifically written for the patient. Important health information is always given to my patients and clinical instructions. Please review your after visit summary and/or contact our clinical staff if you have any questions. documented in this encounter Plan of Treatment Upcoming Encounters Date Type Department Care Team (Late st Contact Info) Description 02/23/2025 8:[address] [facility] [address] [place] [phone] 02/23/2025 9:45 AM EDT Office Visit Obstetrics & Gynecology - [facility] [address] [place] [phone] Inocencia Muñoz CNM [address] [place] [address] 02/24/2025 9:00 AM EDT Ancillary Procedure [facility] [address] [facility] [address] [place] [phone] 03/02/2025 10:15 AM EDT Office Visit Bariatric Surgery - [place] [address] [facility] [address] [place] [phone] Iqra Puga PA [address] [facility] [address] [place], [place] [phone] 03/16/2025 3:45 PM EDT Consult [facility] [place] [address] [facility] [address] [place] [phone] Crissy Jefferson MD [address] [place] [address] 05/02/2025 8:30 AM EDT Office Visit Adult Medicine [facility] [address] [place] [address] Fabio Moe PA [address] [place] [address] 05/19/2025 9:00 AM EDT Office Visit [facility] Hematology Oncology [address] [place] [phone] Gagandeep Wright MD [address] [place] [address] Pending Results Name Type Priority Associated Diagnoses Date /Time Culture urine Microbiology Routine Urinary pain Urinary frequency 02/21/2025 2:03 PM EDT Scheduled Referrals Name Type Priority Associated Diagnoses Order Schedule Ambulatory referral to Urology Outpatient Referral Routine Recurrent UTI 1 Occurrences starting 02/21/2025 until 02/21/2026 documented as of this encounter Procedures Procedure [...] 02/21/2025 2:0 3 PM EDT Acute vaginitis documented in this encounter Results * (ABNORMAL) POC Urine Auto W/O Micro (02/21/2025 3:53 PM EDT) Color UA POC Dark Yellow Appearance UA POC Clear Glucose UA POC Negative Negative, Trace mg/dL Bilirubin UA POC Negative Negative, Small Ketones UA POC Negative Negative, Trace Specific Ceres UA POC 1.025 Blood UA POC Large(A) Negative, Large PH UA POC 5.0 Protein UA POC 30(A) Negative, >=300 mg/dL Urobilinogen UA POC 0.2 E.U./dL mg/dL Nitrite UA POC Negative Negative Leukocytes UA POC Negative Negative Urine Urine specimen obtained by clean catch procedure / Unknown 02/21/2025 3:53 PM EDT Inocencia BRICENO POINT OF CARE TEST ENTER/EDIT ORDERABLES Final Result * Chlamydia trachomatis and Neisseria gonorrhoeae molecular study (02/21/2025 2:17 PM EDT) Neisseria gonorrhoeae PCR Negative Negative LAB MOLECULAR DIAGNOSTICS METHOD 02/22/2025 9:[address] [facility] Chlamydia trachomatis PCR Negative Negative LAB MOLECULAR DIAGNOSTICS METHOD 02/22/2025 9:[address] [facility] Swab Urethral structure / Unknown Non-blood Collection / Unknown 02/21/2025 2:17 PM EDT 02/21/2025 2:17 PM EDT Inocencia BRICENO LAB MICROBIOLOGY - GENERAL OR DERABLES Final Result [facility] [address] [place] [address], * Trichomonas vaginalis antigen (02/21/2025 2:03 PM EDT) Trichomonas vaginalis Negative Negative 02/21/2025 9:[address] [facility] Swab Vaginal structure / Unknown Non-blood Collection / Unknown 02/21/2025 2:03 PM EDT 02/21/2025 2:03 PM EDT Inocencia Muñoz [facility] MICROBIOLOGY - GENERAL OR DERABLES Final Result Performing Organization Address [facility]/ZIP Co de Phone Number [facility] [address] [place] [address], [place] [phone] * Wet prep, genital (02/21/2025 2:03 PM EDT) Clue Cells, Wet Prep Negative Negative 02/21/2025 9:[address] [facility] Yeast, Wet Prep Negative Negative 02/21/2025 9:[address] [facility] Trichomonas, Wet Prep Indeterminate Negative 02/21/2025 9:[address] [facility] Comment:Refer to Trichomonas antigen. Swab Vaginal structure / Unknown Non-blood Collection / Unknown 02/21/2025 2:03 PM EDT 02/21/2025 2:03 PM EDT [facility] - GENERAL OR DERABLES Final Result Performing Organization Address [facility] Co de Phone Number [facility] [address] [place] [address], [place] [phone] documented in this encounter Visit Diagnoses Diagnosis Urinary pain- Primary Renal colic Acute vaginitis Unspecified vaginitis and vulvovaginitis Urinary frequency Recurrent UTI Urinary tract infection, site not specified Pelvic pain in female Unspecified symptom associated with female genital organs documented in this encounter Additional Health Concerns Assessment Noted Time PHQ-9 Depression Total Score: 10 025 11:48 AM EDT documented as of this encounter Care Teams Slab Conditioner Supervisor Relationship Specialty Start Date End Date Fabio Moe PA [address] [place] [address] PCP - General Internal Medicine 04/23/20 documented as of this encounter
--- OUTSIDE RECORDS SUMMARY | 2025-02-22 10:58 | XMS_ITS | Clinical Summary ---
Author Organization [facility] Address [address] [place] [address] Care Team Providers Care Linen Aide Name Role Phone Fabio Moe Primary Care Provider [phone] Allergies No known active allergies Medications acetaminophen [...] propionate (FLONASE) 50 mcg/actuation nasal spray [employer] [place](s) Both Nares Daily Active gabapentin (NEURONTIN) 400 [...] Vaccine ( season) 2024 07/09/2021, 11/28/2020, 11/07/2020 Alcohol/Substance Use Screening 10/05/2024 Depression Screening and Follow-Up 10/05/2024 Social Drivers of Health Annual Screening 10/05/2024 Influenza Vaccine (Season Ended) 2025 07/18/2022, 06/25/2021, 08/05/2020, Additional history exists DTaP,Tdap,and Td Vaccines (3 - Td or Tdap) 07/26/2028 07/26/2018, 12/16/2007 RSV Vaccine (60+ years old and patients) (1 - 1-dose 75+ series) 2053 Pneumococcal Vaccine: Pediatric (0-5 Years) and At-Risk Patients (6-50 Years) Aged Out 11/14/2013 No longer eligible based on patient's age to complete this topic Insurance [employer] Care Teams Linen Aide Relationship Specialty Start Date End Date Fabio Moe PCP - General Internal Medicine 01/18/24
== END 2025-02-22 10:14 | disposition home or self-care (01) ==
LOC: HO.PMC 09:41
PROVIDERS: PCP Internal Medicine Endocrinology, Diabetes & Metabolism; Visit Provider Registered Nurse Emergency
DX: G89.3 Neoplasm related pain (acute) (chronic) (principal); M47.816 Spondylosis without myelopathy or radiculopathy, lumbar region; M47.812 Spondylosis without myelopathy or radiculopathy, cervical region
CPT/HCPCS: 99213; G2211

== ENCOUNTER → 2025-02-22 09:40 | Outpatient (BNVA) | payer OTHER, SELFPAY | PROVIDERS: PCP Internal Medicine Endocrinology, Diabetes & Metabolism; Visit Provider Registered Nurse Emergency | DX: G89.3 Neoplasm related pain (acute) (chronic) (principal); M47.816 Spondylosis without myelopathy or radiculopathy, lumbar region; M47.812 Spondylosis without myelopathy or radiculopathy, cervical region | CPT/HCPCS: 99212 ==

== ENCOUNTER 2025-07-21 14:57 | Outpatient (REF) | payer OTHER, SELFPAY ==
--- NOTE | 2025-07-21 15:01 | EMG_ITS ---
Chief complaint: History of lymphoma and chemotherapy, diabetes, bilateral hand pain and numbness. She has new or hand tremors. EMG done by me 08/07/2023 was normal. Reason for referral: Evaluate for neuropathy Referred by: Dr. Heart Procedure done: Bilateral upper extremity NCS/EMG Precautions and/or limitations: None The limb temperature was monitored continuously and remained between 32-36 degrees C during the performance of the NCS. Nerve Conduction Studies Anti Sensory Summary Table ?Stim Site NR Onset (ms) Norm Onset (ms) Peak (ms) Norm Peak (ms) O-P Amp (?V) Norm O-P Amp Site1 Site2 Delta-0 (ms) Dist (cm) Jose (m/s) Norm Jose (m/s) Left Median Anti Sensory (2nd Digit) Wrist ? 2.3 3.2 <3.6 52.2 >10 Wrist 2nd Digit 2.3 14.0 61 Right Median Anti Sensory (2nd Digit) Wrist ? 2.5 3.2 <3.6 38.4 >10 Wrist 2nd Digit 2.5 14.0 56 Right Radial Anti Sensory (Thumb) Forearm ? 1.5 2.0 <3.1 26.9 Forearm Thumb 1.5 10.0 67 Left Ulnar Anti Sensory (5th Digit) Wrist ? 2.4 3.0 <3.7 40.9 >15.0 Wrist 5th Digit 2.4 14.0 58 Right Ulnar Anti Sensory (5th Digit) Wrist ? 2.2 3.0 <3.7 47.1 >15.0 Wrist 5th Digit 2.2 14.0 64 Motor Summary Table ?Stim Site NR Onset (ms) Norm Onset (ms) O-P Amp (mV) Norm O-P Amp iAmp (mV) Amp (1st) (%) Site1 Site2 Delta-0 (ms) Dist (cm) Jose (m/s) Norm Jose (m/s) Left Median Motor (Abd Poll Brev) Wrist ? 3.8 <3.9 5.3 >4.5 6.3 100.0 Elbow Wrist 3.2 18.0 56 >45 Elbow ? 7.0 5.2 6.4 98.1 Right Median Motor (Abd Poll Brev) Wrist ? 3.8 <3.9 6.9 >4.5 8.6 100.0 Elbow Wrist 3.3 18.0 55 >45 Elbow ? 7.1 6.6 8.3 95.7 Left Ulnar Motor (Abd Dig Minimi) Wrist ? 2.6 <3.0 11.0 >5 13.7 100.0 B Elbow Wrist 2.5 16.0 64 >45 B Elbow ? 5.1 10.4 13.3 94.5 A Elbow B Elbow 1.7 10.0 59 >45 A Elbow ? 6.8 10.0 12.5 90.9 Right Ulnar Motor (Abd Dig Minimi) Wrist ? 2.7 <3.0 10.2 >5 11.9 100.0 B Elbow Wrist 2.8 17.0 61 >45 B Elbow ? 5.5 9.8 11.2 96.1 A Elbow B Elbow 1.2 10.0 83 >45 A Elbow ? 6.7 9.5 10.9 93.1 EMG ?Side Muscle Nerve Root Ins Act Fibs Psw Amp Dur Poly Recrt Int Pat Comment Right 1stDorInt Ulnar C8-T1 Nml Nml Nml Nml Nml 0 Nml Complete Right FlexCarRad Median C6-7 Nml Nml Nml Nml Nml 0 Nml Complete Right Biceps Musculocut C5-6 Nml Nml Nml Nml Nml 0 Nml Complete Right Triceps Radial C6-7-8 Nml Nml Nml Nml Nml 0 Nml Complete Right Deltoid Axillary C5-6 Nml Nml Nml Nml Nml 0 Nml Complete Left 1stDorInt Ulnar C8-T1 Nml Nml Nml Nml Nml 0 Nml Complete Left FlexCarRad Median C6-7 Nml Nml Nml Nml Nml 0 Nml Complete Left Biceps Musculocut C5-6 Nml Nml Nml Nml Nml 0 Nml Complete Left Triceps Radial C6-7-8 Nml Nml Nml Nml Nml 0 Nml Complete Left Deltoid Axillary C5-6 Nml Nml Nml Nml Nml 0 Nml Complete Paraspinal EMG ?Side Muscle Nerve Root Ins Act Fibs Psw Comment Right Cervical Upper Rami Nml Nml Nml Right Cervical Mid Rami Nml Nml Nml Right Cervical Lower Rami Nml Nml Nml Left Cervical Upper Rami Nml Nml Nml Left Cervical Mid Rami Nml Nml Nml Left Cervical Lower Rami Nml Nml Nml FINDINGS: All motor and sensory nerves tested showed normal latencies, amplitudes and conduction velocities. Concentric needle EMG was performed in selected muscles of the bilateral upper extremities and cervical paraspinals. Study did not reveal signs of electric abnormalities as shown in the table above. IMPRESSION: 1. This is a normal study. 2. There is no electrodiagnostic evidence for median neuropathy, ulnar neuropathy, brachial plexopathy, or cervical radiculopathy. Thank you for your kind referral. Laureen Thao MD, ALEJANDRO Board Certified, [place] [employer] and Rehabilitation (ABPMR) Board Certified, [place] Board of Electrodiagnostic Medicine (ABEM) CODIN [phone] x 2 MTDD
== END 2025-07-21 14:58 | disposition home or self-care (01) ==
LOC: HO.NEURO 14:57
PROVIDERS: Visit Provider Physician Assistant
DX: Z13.89 Encounter for screening for other disorder (principal)

== ENCOUNTER → 2025-07-21 15:01 | Outpatient (BNV) | payer OTHER, SELFPAY | PROVIDERS: Visit Provider Physical Medicine & Rehabilitation | DX: R25.1 Tremor, unspecified (principal) | CPT/HCPCS: 95886; 95911 ==

== ENCOUNTER 2025-07-29 10:07 | Emergency (ER) | payer OTHER, SELFPAY ==
--- NOTE | ~2025-07-29 | CT_ITS ---
CLINICAL HISTORY: concern for dissection , CP , ALL CTA ABDOMEN IMAGES UNDER CTA CHEST ORDER CT angiography abdomen and pelvis with contrast. 3-D post processing. Comparison: None provided Findings: There is no evidence of aortic aneurysm or dissection. There is a small hiatal hernia. The lung bases are clear. The gallbladder and solid organs are within normal limits. No renal stones. The patient is status post gastric sleeve surgery. The patient is status post hysterectomy. The urinary bladder is normal. No acute fracture. IMPRESSION: No acute findings. This document has been electronically signed by: Anjel Morton MD on 07/29/2025 12:41:06
--- NOTE | ~2025-07-29 | CT_ITS ---
CLINICAL HISTORY: weakness CT head without contrast Comparison: None provided Findings: No intra-axial mass, midline shift, hydrocephalus, or acute hemorrhage. No significant atrophy-like change or white matter disease. The visualized paranasal sinuses and mastoid air cells are normal. The orbits are within normal limits. No skull fracture. IMPRESSION: 1. No acute intracranial findings. This document has been electronically signed by: Anjel Morton MD on 07/29/2025 12:38:04
--- NOTE | ~2025-07-29 | CT_ITS ---
CLINICAL HISTORY: concern for dissection , CP, ALL IMAGES FOR CTA ABDOMEN UNDER CTA CHEST CT angiography chest with contrast. 3D Postprocessing. Comparison: None provided Findings: The heart is normal size. RV/LV ratio is normal. Unremarkable thoracic aorta and great vessels. No aneurysm. No acute pulmonary embolus. The visualized thyroid and mediastinum are unremarkable. No consolidation or effusion. The upper abdomen is unremarkable. The bones are intact. IMPRESSION: 1. No evidence of aortic aneurysm or dissection. This document has been electronically signed by: Anjel Morton MD on 07/29/2025 12:45:06
--- NOTE | ~2025-07-29 | XR_ITS ---
CLINICAL HISTORY: cp sob 1 view chest x-ray Comparison: None provided Findings: The lungs are clear. Heart size is normal. No acute fracture. IMPRESSION: 1. No acute findings. This document has been electronically signed by: Anjel Morton MD on 07/29/2025 12:36:35
--- NOTE | 2025-07-29 10:15 | ED_ITS ---
HPI - General Adult General Chief complaint: Chest Pain Stated complaint: chest pain diff breathing Time Seen by Provider: 07/29/25 10:15 Source: patient Mode of arrival: ambulatory Limitations: no limitations History of Present Illness ED Provider: Gerda Alegria PA-C HPI narrative: This is a 44yo female presenting to the ED for chest pain with associated left- sided extremity pain and weakness. She has a past medical history of Hodgkin lymphoma in remission since 2019, chronic pain s/p cancer treatment, asthma, GERD, non-insulin dependent type 2 diabetes, cervical and lumbar spondylosis, anxiety and depression. She reports that she started feeling nauseous and dizzy while ordering breakfast this morning. She stepped outside for air but started to feel worse with onset of chest pain and then left-sided arm tightness. She drove herself to the ED, presenting within 30 minutes of symptom onset. Patient describes the chest pain as sharp, stabbing pain on the left side. Denies ever having this type of pain before. She states that her LUE and LLE feel tight and very weak. Endorses mild shortness of breath and feeling shaky , but thinks this is secondary to her current anxiety. Also started complaining of back pain and headache after a few minutes. Onset (ago): minute(s) Location: head, chest, back, upper extremity (left) and lower extremity (left) Quality: stabbing and sharp Pain Consistency: constant Associated symptoms: weakness and other (nausea, dizziness) Related Data Home Medications ?Medication ?Instructions ?Recorded ?Confirmed acetaminophen 500 mg tablet 1,000 mg PO Q6H PRN 02/22/25 cetirizine 10 mg capsule (Zyrtec) 10 mg PO DAILY PRN 0 11/04/23 02/22/25 cyanocobalamin (vitamin B-12) 1,000 mcg sublingual DEDE LY 11/04/23 02/22/25 1,000 mcg sublingual lozenge docusate sodium 100 mg capsule 100 mg PO BID 11/04/23 02/22/25 (Colace) fluticasone propionate 50 2 spray intranasal DAILY 02/22/25 mcg/actuation nasal spray,suspension loratadine 10 mg tablet 10 mg PO DAILY 11/04/23/10/29 lorazepam 0.5 mg tablet 0.5 mg PO BEDTIME PRN 02/22/25 omeprazole 20 mg capsule,delayed 20 mg PO BID 11/04/23 02/22/25 release ondansetron HCl 8 mg tablet 8 mg PO Q8H 11/04/2302/22 oxycodone 5 mg tablet 5 mg PO Q4H PRN 11/04/23 sertraline 100 mg tablet (Zoloft) 100 mg PO DAILY 10/0702/22/25 thiamine HCl (vitamin B1) 50 mg 50 mg PO DAILY 4 02/22/25 tablet atorvastatin 20 mg tablet 20 mg PO DAILY 11/06/2302/03 gabapentin 400 mg capsule 400 mg PO BID 11/06/2302/22 lidocaine 5 % topical patch 1 patch topical DAILY 11/2802/22/25 amitriptyline 10 mg tablet mg PO 11/04/24 02/22/25 duloxetine 60 mg capsule,delayed mg PO DAILY 11/04/24 02/22/25 release fluticasone furoate 200 inhalation DAILY 11/04/24 mcg-vilanterol 25 mcg/dose inhalation powder (Breo Ellipta) morphine 15 mg tablet,extended mg PO 11/04/24 02/22/25 release fluticasone propionate 230 inhalation 12/30/24 5 mcg-salmeterol 21 mcg/actuation HFA inhaler (Advair HFA) Previous Rx's ?Medication ?Instructions ?Recorded tizanidine 2 mg tablet 2 mg PO TID PRN muscle spast icity 01/10/25 #90 tabs Allergies Allergy/AdvReac Type Severity Reaction Status Date / Time No Known Allergies Allergy Verified 07/29/25 10:23 Review of Systems 2 Constitutional: Constitutional: Reports as per HPI Eyes: Eyes: Reports as per HPI ENT: Reports as per HPI Cardiovascular: Cardiovascular: Reports as per HPI Respiratory: Respiratory: Reports as per HPI Gastrointestinal: Gastrointestinal: Reports as per HPI Genitourinary: Genitourinary: Reports as per HPI Musculoskeletal: Musculoskeletal: Reports as per HPI Integumentary/Breasts: Skin/Breast: Reports as per HPI Neurologic: Reports as per HPI Psychiatric: Psychiatric: Reports as per HPI Endocrine: Endocrine: Reports as per HPI Hematologic/Lymphatic: Hematologic/Lymphatic: Reports as per HPI Allergic/Immunologic: Allergic/Immunologic: Reports as per HPI [facility] Past Medical History Attestation statement: The following information was validated with the patient. Source: old records reviewed and nursing notes reviewed Medical History GERD (gastroesophageal reflux disease) Obstructive sleep apnea (adult) (pediatric) Lichen simplex chronicus Asthma Polyp of gallbladder Hyperlipidemia, unspecified Functional dyspepsia Hodgkin lymphoma Type 2 diabetes mellitus without complications Abnormal chest x-ray Vitamin D deficiency MRSA carrier Cervical disc herniation Vulvar itching Anxiety and depression Dysuria Low libido Overweight (BMI 25.0-29.9) Iron (Fe) deficiency anemia Surgical History Bariatric surgery status Social History Social History Smoked in Last 30 Days: No Use of substances other than those prescribed or required for medical reasons: No Advance Directives: No Advance Directives Information Provided: No Do you have a plan to hurt others: No Plan Patient : No Physical Exam ED Vital Signs: Vital Signs - 24 hr 07/29/25 10:22 07/29/25 12:26 Temperature 97.8 F 97.9 F Pulse Rate 83 83 Respiratory Rate 16 30 H Blood Pressure 139/79 157/76 H Pulse Oximetry 100 98 Oxygen Delivery Method Room Air Room Air BMI result Body Mass Index 31.9 Const General: alert, awake and acute distress Nutritional Appearance: obese Orientation/consciousness: patient oriented x3 [facility] Head: Yes normocephalic and Yes atraumatic Ears: hearing grossly normal bilaterally and external ears normal General nose exam: Normal external nose present, no nasal discharge noted and no epistaxis Face and sinus: Yes normal facial exam, No abrasion and No laceration Mouth: Normal oral and palatal mucosa present, no drooling and no muffled voice Eyes General: appearance normal, both eyes and all related structures Periorbital: periorbital findings normal Eyelids: Yes eyelids normal Conjunctivae: conjunctivae normal Pupils: Equal, round and reactive pupils present EOM: EOMs intact bilaterally Neck Neck: Yes normal visual inspection and Yes full ROM Resp Effort & Inspection: normal respiratory effort and able to speak in complete sentences Neuro General: patient oriented x3 Cranial nerves: Yes Equal, round and reactive pupils present Cognition (Neuro): normal cognition Extrem General: Yes normal to inspection, Yes full ROM and Yes capillary refill normal Psych Appearance: other (tearful) Mental Status: mental status grossly normal Affect: Anxious affect present Attitude: cooperative Thought process: Normal thought process present Thought content: Normal thought content present Insight: Good insight present (Psych) Medications Administered Discontinued Medications Generic Name Dose Route Start Last Admin Trade Name Derek PRN Reason Stop Dose Admin Al Hydroxide/Mg Hydroxide 15 ml 07/29/25 12:42 07/29/25 13:14 Magnesium Hydrox/Alum Hydrox 30 Ml Oral.Susp PO 07/29/25 12:43 15 ml ONCE ONE Administration Diazepam 2.5 mg 07/29/25 11:15 07/29/25 11:25 Diazepam 10 Mg/2 Ml Cartridge IVPUSH 07/29/25 11:16 2.5 mg STAT STA Administration Hydromorphone HCl 0.5 mg 07/29/25 12:23 07/29/25 12:26 Hydromorphone Hcl 0.5 Mg/0.5 Ml Syringe IVPUSH 07/29/25 12:24 0.5 mg ONCE ONE Administration Protocol Iohexol 100 ml 07/29/25 11:00 07/29/25 11:00 Iohexol 350 Mg/Ml 100 Ml Infus..Btl IV 07/29/25 11:01 100 ml ONCE ONE Administration Ketorolac Tromethamine 15 mg 07/29/25 12:23 07/29/25 12:28 Ketorolac Tromethamine 15 Mg/Ml Vial IVPUSH 07/29/25 12:24 15 mg ONCE ONE Administration Morphine Sulfate 4 mg 07/29/25 11:11 07/29/25 11:17 Morphine Sulfate 4 Mg/Ml Cartridge IVPUSH 07/29/25 11:12 4 mg ONCE ONE Administration Protocol Ondansetron HCl 4 mg 07/29/25 11:15 07/29/25 11:25 Ondansetron Hcl 4 Mg/2 Ml Vial IVPUSH 07/29/25 11:16 4 mg ONCE ONE Administration Pantoprazole Sodium 40 mg 07/29/25 12:42 07/29/25 13:16 Pantoprazole Sodium 40 Mg/10 Ml Vial IVPUSH 07/29/25 12:43 40 mg ONCE ONE Administration Medical Decision Making Medical Decision Making [facility] Narrative: Patient is a 44 year old female with a history of Hodgkin lymphoma in remission since 2019, chronic pain s/p cancer treatment, asthma, GERD, non-insulin dependent type 2 diabetes, cervical and lumbar spondylosis, anxiety, and depression. Patient's physical exam was as noted in the physical exam portion of this note. No focal deficits. Patient's blood work was unremarkable. Patient's chest x-ray showed no acute process. Patient's CTA chest and abdomen/pelvis showed no acute process. Patient's CT head was negative. Patient's EKG was negative. Patient's clinical presentation is most consistent with atypical chest pain and anxiety vs. panic attack. I explained my physical exam findings as well as all test results to the patient. I answered all questions asked by the patient. Patient received IV morphine, toradol, dilaudid, protonix, and zofran which, upon re-evaluation, she stated it helped her symptoms significantly. I stressed the importance of the patient taking her medication as directed (either prescribed or as the over the counter packaging recommends). I stressed the importance of the patient following up with her primary care provider. I stressed the importance of the patient returning to the emergency department immediately if her symptoms were to worsen or if she were to develop any dizziness, shortness of breath, difficulty breathing, chest pain, blurry vision, loss of vision, nausea, vomiting, abdominal pain, fever, chills, back pain, or any other complaints. Patient verbalized agreement and understanding with this treatment plan and discharge. Differential Diagnosis Differential Diagnoses: The differential diagnosis associated with the presentation includes Atypical chest pain Anxiety Panic attack NSTEMI STEMI Aortic dissection Admission/Observation Consideration of admission/observation: Escalation of care including admission/observation considered Patient would have been admitted to the hospital had her work up had any findings where hospital admission was appropriate and her clinical presentation warranted hospital admission. Lab Data [facility] Lab Attestation statement: I reviewed the patient's lab results. My interpretation of these results are in the MDM Rationale portion of this note. 07/29/25 10:21 07/29/25 10:21 Labs: Lab Results 07/29/25 07/29/25 Range/Units 10: 13:13 WBC 5.3 (4.8-10.8) X10*3/uL RBC 4.56 (4.20-5.50) X10*6/uL Hgb 12.7 (12.0-16.0) g/dl Hct 38.1 (37.0-47.0) % MCV 83.6 (80.0-98.0) fL MCH 27.9 (27.0-33.0) pg MCHC 33.3 (31.0-35.0) g/dl RDW 13.2 (11.0-16.0) % Plt Count 378 (160-400) X10*3/uL MPV 9.8 (9.4-12.3) fL Immature Gran % (Auto) 0.4 (0.0-0.4) % Neut % (Auto) 43.1 L (45-73) % Lymph % (Auto) 45.2 H (20-40) % [place] % (Auto) 6.8 (2-11) % Eos % (Auto) 3.0 (0-4) % Baso % (Auto) 1.5 (0-2) % Lymph # (Auto) 2.4 (1.2-4.9) X10*3/uL [place] # (Auto) 0.4 (0.1-1.2) X10*3/uL Eos # (Auto) 0.2 (0.0-0.4) X10*3/uL Baso # (Auto) 0.1 (0.0-0.2) X10*3/uL Abs Immat Gran (auto) 0.02 (0.00-0.03) X10*3/uL Absolute Neuts (auto) 2.3 (2.0-8.3) x10*3/uL Absolute Nucleated RBC 0.000 (0.0-0.012) X10*3/uL Nucleated RBC % (auto) 0.0 (0.0-0.2) /100WBC Sodium 143 (135-145) mmol/L Potassium 3.3 (3.3-5.1) mmol/L Chloride 113 H (96-108) mmol/L Carbon Dioxide 17 L (22-29) mmol/L Anion Gap 16 (12-20) BUN 8 L (9-16) mg/dL Creatinine 0.59 (0.5-1.4) mg/dL Estim Creat Clear Calc 120.5 Estimated GFR > 60 Random Glucose 142 H (60-115) mg/dL Calcium 8.9 (8.4-10.2) mg/dL Total Bilirubin 0.6 (0.0-1.0) mg/dL AST 18 (5-31) U/L ALT 10 (0-31) U/L Alkaline Phosphatase 81 (39-117) U/L Troponin I High Sens 4.6 < 2.7 (<3.5-17.0) ng/L Total Protein 7.9 (6.5-8.0) g/dL Albumin 4.7 (3.5-5.0) g/dL COVID-19 (NIKKI) Negative (Negative) COVID-19 Clin Com See Note Influenza Type A (CATHIE) Negative (Negative) Influenza Type B (CATHIE) Negative (Negative) Influenza A & B Note See Note Independent Interpretation I performed an independent interpretation of an: EKG, Plain X-Ray and CT Scan Interpretation: My interpretation is in agreement with the radiologist's impression of these imaging studies. L Reason for Exam: concern for dissection CLINICAL HISTORY: concern for dissection , CP, ALL IMAGES FOR CTA ABDOMEN UNDER CTA CHEST CT angiography chest with contrast. 3D Postprocessing. Comparison: None provided Findings: The heart is normal size. RV/LV ratio is normal. Unremarkable thoracic aorta and great vessels. No aneurysm. No acute pulmonary embolus. The visualized thyroid and mediastinum are unremarkable. No consolidation or effusion. The upper abdomen is unremarkable. The bones are intact. IMPRESSION: 1. No evidence of aortic aneurysm or dissection. This document has been electronically signed by: Anjel Morton MD on 07/29/2025 12:45:06 Dictated By: Anjel Morton MD Signed By: Electronically signed by Anjel Morton MD 07/29/25 1245 CLINICAL HISTORY: concern for dissection , CP , ALL CTA ABDOMEN IMAGES UNDER CTA CHEST ORDER CT angiography abdomen and pelvis with contrast. 3-D post processing. Comparison: None provided Findings: There is no evidence of aortic aneurysm or dissection. There is a small hiatal hernia. The lung bases are clear. The gallbladder and solid organs are within normal limits. No renal stones. The patient is status post gastric sleeve surgery. The patient is status post hysterectomy. The urinary bladder is normal. No acute fracture. IMPRESSION: No acute findings. This document has been electronically signed by: Anjel Morton MD on 07/29/2025 12:41:06 Dictated By: Anjel Morton MD Signed By: Electronically signed by Anjel Morton MD 07/29/25 1241 Reason for Exam: weakness CLINICAL HISTORY: weakness CT head without contrast Comparison: None provided Findings: No intra-axial mass, midline shift, hydrocephalus, or acute hemorrhage. No significant atrophy-like change or white matter disease. The visualized paranasal sinuses and mastoid air cells are normal. The orbits are within normal limits. No skull fracture. IMPRESSION: 1. No acute intracranial findings. This document has been electronically signed by: Anjel Morton MD on 07/29/2025 12:38:04 Dictated By: Anjel Morton MD Signed By: Electronically signed by Anjel Morton MD 07/29/25 1238 CLINICAL HISTORY: cp sob 1 view chest x-ray Comparison: None provided Findings: The lungs are clear. Heart size is normal. No acute fracture. IMPRESSION: 1. No acute findings. This document has been electronically signed by: Anjel Morton MD on 07/29/2025 12:36:35 Dictated By: Anjel Morton MD Signed By: Electronically signed by Anjel Morton MD 07/29/25 1237 I independently interpreted this EKG and am in agreement with the below findings: Vent. Rate: 93 BPM ? ? Atrial Rate: 93 BPM P-R Int: 154 ms? QRS Dur: 82 ms QT Int: 356 ms ? P-R-T Axes: 56 -08 59 degrees QTc Int: 442 ms ? Normal sinus rhythm Possible left atrial enlargement Nonspecific T wave abnormality DD/ Radiology Impression Discussion of test interpretation with radiology: I have reviewed the radiologist's reading. Critical Care Time Critical Care Time Critical Care Time: Yes Total Critical Care Time: 48 Attestation: I spent 48 minutes of Critical Care Time with this patient. This does not include time spent on separately reported billable procedures. Discharge Plan Discharge Clinical Impression: Atypical chest pain Patient Disposition: Home, Self-Care Instructions: Chest Pain (DC) Additional Instructions: Your work up today was reassuring there is no EMERGENT cause for your symptoms. Your blood work (CBC, CMP, troponin) was all normal. Your CT scan of the head, chest, and abdomen/pelvis were all normal. IF you are prescribed home medications and/or you are taking over the counter medications at home - it is very important you continue to do so as prescribed / directed unless told otherwise. Follow up with your primary care provider. Return to the emergency department immediately if your symptoms worsen or if you develop any numbness, tingling, dizziness, shortness of breath, difficulty breathing, chest pain, blurry vision, loss of vision, nausea, vomiting, abdominal pain, fever, chills, back pain, or any other complaints. If you do not have a primary care provider - call any of the below numbers to establish and follow up with a primary care provider. [facility] Primary Care ([place]) [phone] [place] [address], [address] [facility] Primary Care ([address] [place]) [phone] [place] [address], [address] [facility], [address] [facility] Primary Care ([address] [place]) [phone] [place] [address], [address] [facility], [address] [facility] Primary Care ([place]) [phone] [place] [address] 2 [facility], [address] [facility] Family Medicine [phone] [address] [facility], [address] Please see the information below about our Patient Portal. If you are not yet enrolled in the [facility] Patient Portal, you will receive an enrollment email invitation following your visit to any [facility] setting. You may also self-enroll in the Patient Portal by visiting our website: [email or web address] The following information is required to access the Patient Portal: - Your [facility] Medical Record Number - Your personal home email address (must match what is in your electronic medical record, Registration staff can assist with this) - Name - Date of Capabilities of the Patient Portal: - Message some providers - View upcoming appointments - Access your health summary, medical history, and visit history - View current conditions and allergies - View procedure and lab results - View your medications, including guidelines, side effects, and precautions - Complete pre-appointment questionnaires requested by your provider - Ready summary reports of your office visits and procedures To access the Patient Portal Mobile Renuka, follow these directions: - Search [employer] in the [employer] Store or [employer] Store - Download the Renuka - Search for [facility] - Enter your login/password Prescriptions: No Action tizanidine 2 mg tablet 2 mg PO TID PRN (Reason: muscle spasticity) Qty: 90 8RF Rx Instructions: Do not take with other muscle relaxants. No driving or alcohol use while taking this medication. loratadine 10 mg tablet 10 mg PO DAILY oxycodone 5 mg tablet 5 mg PO Q4H PRN omeprazole 20 mg capsule,delayed release(DR/EC) 20 mg PO BID docusate sodium [Colace] 100 mg capsule 100 mg PO BID thiamine HCl (vitamin B1) 50 mg tablet 50 mg PO DAILY cyanocobalamin (vitamin B-12) 1,000 mcg lozenge 1,000 mcg sublingual DAILY Zyrtec 10 mg capsule 10 mg PO DAILY PRN sertraline [Zoloft] 100 mg tablet 100 mg PO DAILY ondansetron HCl 8 mg tablet 8 mg PO Q8H lorazepam 0.5 mg tablet 0.5 mg PO BEDTIME PRN acetaminophen 500 mg tablet 1,000 mg PO Q6H PRN fluticasone propionate 50 mcg/actuation spray,suspension 2 spray intranasal DAILY Rx Instructions: administer into each nostril gabapentin 400 mg capsule 400 mg PO BID atorvastatin 20 mg tablet 20 mg PO DAILY lidocaine 5 % adhesive patch,medicated 1 patch topical DAILY Rx Instructions: leave on most painful area for up to 12 hrs morphine 15 mg tablet extended release PO fluticasone furoate-vilanterol [Breo Ellipta] 200-25 mcg/dose blister with device inhalation DAILY amitriptyline 10 mg tablet PO duloxetine 60 mg capsule,delayed release(DR/EC) PO DAILY fluticasone propion-salmeterol [Advair HFA] 230-21 mcg/actuation HFA aerosol inhaler inhalation Stand Alone Forms: Work/School Release Print Language: Bengali
[2025-07-29 10:22] VITALS: BP 139/79; PULSE 83; RESP 16; TEMP 36.6; O2SAT 100; BMI 31.9
[2025-07-29 10:26] LABS: MANUAL DIFF FLAG NO
[2025-07-29 10:32] LABS: Hematocrit 38.1 % (37.0-47.0); Hemoglobin 12.7 g/dl (12.0-16.0); Imm Gran Abs Auto 0.02 X10*3/uL (0.00-0.03); Imm Gran Pct Auto 0.4 % (0.0-0.4); Lymphocytes Absolute Auto 2.4 X10*3/uL (1.2-4.9); Mean Corpuscular HGB Conc 33.3 g/dl (31.0-35.0); Mean Corpuscular Hemoglobin 27.9 pg (27.0-33.0); Mean Corpuscular Volume 83.6 fL (80.0-98.0); NRBC Abs Auto 0.000 X10*3/uL (0.0-0.012); NRBC Pct Auto 0.0 /100WBC (0.0-0.2); Platelet Count 378 X10*3/uL (160-400); Red Blood Count 4.56 X10*6/uL (4.20-5.50); White Blood Count 5.3 X10*3/uL (4.8-10.8)
[2025-07-29 10:46] LABS: Alanine Aminotransferase 10 U/L (0-31); Albumin Level 4.7 g/dL (3.5-5.0); Alkaline Phosphatase 81 U/L (39-117); Anion Gap 16 (12-20); Aspartate Amino Transferase 18 U/L (5-31); Blood Urea Nitrogen 8 mg/dL (9-16); Calcium 8.9 mg/dL (8.4-10.2); Carbon Dioxide 17 mmol/L (22-29); Chloride 113 mmol/L (96-108); Creatinine Clr Calc Pharmacy 120.5; Estimated Glomerular Filt Rate > 60; Potassium 3.3 mmol/L (3.3-5.1); Sodium 143 mmol/L (135-145); Total Protein 7.9 g/dL (6.5-8.0)
--- OUTSIDE RECORDS SUMMARY | 2025-07-29 10:48 | XMS_ITS | Clinical Summary ---
Author Organization [facility] Address [address] [place] [address] Care Team Providers Care Manager Alliance Name Role Phone Fabio Moe PA-C Primary [...] 0 04/20/2023 Active ergocalciferol (VITAMIN D2) capsule 63227 units Take 1 capsule (50,000 Units total) [...] in consultation to Dr. Dexter Lind at [facility], [place], [place]. See end of report for his interpretation. [...] of approximately 10% lymphocytes. Immunohistochemistry performed at [facility], [place], [place], shows that the large abnormal cells [...] 73 04/04/2024 3:59 PM EDT Temperature 36.4 C (97.6 F) 04/04/2024 3:59 PM EDT Respiratory Rate - - Oxygen Saturation 100% [...] Screening (Colonoscopy) 2023 COVID-19 Vaccine ( season) 2025 07/09/2021, 11/28/2020, 11/07/2020 Influenza Vaccine (#1) 2025 , 06/25/2021, 08/05/2020, Additional history exists RSV Ped < 20 months Aged Out No longe r eligible based on patient's age to complete this topic Care Teams Manager Alliance Relationship Specialty Start Date End Date Fabio Moe PA-C PCP - General Medical Services 06/06/21
--- OUTSIDE RECORDS SUMMARY | 2025-07-29 10:48 | XMS_ITS | Clinical Summary ---
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 Unknown Venipuncture / Unknown 06/08/2025 3:01 PM EDT 06/08/2025 3:01 PM EDT us Gagandeep Wright MD LAB BLOOD ORDERABLE S Final Result Performing Organization Address City/[facility]/ZIP Co de Phone Number [facility] [address] [place] [address], [place] [phone] * Lactate dehydrogenase (06/08/2025 3:01 PM EDT) LDH 146 120 - 246 unit/L LAB CHEMISTRY METHOD 06/08/2025 6:43 PM EDT [facility] Blood Venous blood specimen / Unknown Venipuncture / Unknown 06/08/2025 3:01 PM EDT 06/08/2025 3:01 PM EDT us Gagandeep Wright MD LAB BLOOD ORDERABLE S Final Result Performing Organization Address [facility]/ZIP Co de Phone Number [facility] [address] [place] [address], [place] [phone] * Immunoglobulin IgG (06/08/2025 3:01 PM EDT) Total IgG 1,060 549 - 1,584 mg/dL LAB CHEMISTRY METHOD 06/08/2025 6:55 PM EDT [facility] Blood Venous blood specimen / Unknown Venipuncture / Unknown 06/08/2025 3:01 PM EDT 06/08/2025 3:01 PM EDT us Gagandeep Wright MD LAB BLOOD ORDERABLE S Final Result [facility] [address] [place] [address], [place] [phone] * Ferritin (06/08/2025 3:01 PM EDT) Pathologist [facility] Ferritin 12 8 - 252 ng/mL LAB CHEMISTRY METHOD 06/08/2025 6:[address] [facility] Blood Venous blood specimen / Unknown Venipuncture / Unknown 06/08/2025 3:01 PM EDT 06/08/2025 3:01 PM EDT Gagandeep Wright MD LAB BLOOD ORDERABLE S Final Result [facility] [address] [place] [address], [place] [phone] * (ABNORMAL) Comprehensive metabolic panel (06/08/2025 3:01 PM EDT) [facility] Sodium 139 133 - 145 mmol/L LAB CHEMISTRY METHOD 06/08/2025 6:[address] [facility] Potassium 3.8 3.5 - 5.5 mmol/L LAB CHEMISTRY METHOD 06/08/2025 6:[address] [facility] Chloride 109 96 - 110 mmol/L LAB CHEMISTRY METHOD 06/08/2025 6:[address] [facility] CO2 26 21 - 32 mmol/L LAB CHEMISTRY METHOD 06/08/2025 6:[address] [facility] Anion Gap 4 3 - 11 LAB CHEMISTRY METHOD 06/08/2025 6:[address] [facility] Glucose 88 70 - 100 mg/dL LAB CHEMISTRY METHOD 06/08/2025 6:[address] [facility] BUN 9 5 - 25 mg/dL LAB CHEMISTRY METHOD 06/08/2025 6:[address] [facility] Creatinine 0.53 0.50 - 1.10 mg/dL LAB CHEMISTRY METHOD 06/08/2025 6:[address] [facility] eGFR 116 >=60 mL/min/1. 73m2 LAB CHEMISTRY METHOD 06/08/2025 6:43 PM EDT [facility] Comment:Calculation based on the Chronic Kidney Disease Epidemiology Collaboration (CKD-EPI) equation refit without adjustment for race. BUN/Creatinine Ratio 17.0 LAB CHEMISTRY METHOD 06/08/2025 6:[address] [facility] Calcium 9.1 8.5 - 10.5 mg/dL LAB CHEMISTRY METHOD 06/08/2025 6:43 PM T [facility] AST (SGOT) 13 10 - 42 unit/L LAB CHEMISTRY METHOD 06/08/2025 6:[address] [facility] ALT (SGPT) 9(L) 10 - 60 unit/L LAB CHEMISTRY METHOD 06/08/2025 6:[address] [facility] Alkaline Phosphatase 66 42 - 121 unit/L LAB CHEMISTRY METHOD 06/08/2025 6:[address] [facility] Total Protein 7.1 6.0 - 8.0 g/dL LAB CHEMISTRY METHOD 06/08/2025 6:[address] [facility] Albumin 3.8 3.2 - 5.0 g/dL LAB CHEMISTRY METHOD 06/08/2025 6:[address] [facility] Total Bilirubin 0.7 0.0 - 1.4 mg/dL LAB CHEMISTRY METHOD 06/08/2025 6:[address] [facility] Blood Venous blood specimen / Unknown Venipuncture / Unknown 06/08/2025 3:01 PM EDT 06/08/2025 3:01 PM EDT us Gagandeep Wright MD LAB BLOOD ORDERABLE S Final Result [facility] [address] [place] [address], * COLONOSCOPY Anesthesia - MAC; [facility] ENDOSCOPY (12/27/2024 9:37 AM EDT) Anatomical Region Laterality Modality Other 12/27/2024 9:26 AM EDT Impressions 12/27/2024 9:37 AM EDT - The examined portion of the ileum was normal. - Internal hemorrhoids. - The entire examined colon is normal. - No specimens collected. Recommendation: - Repeat colonoscopy in 10 years for screening purposes. Narrative 12/27/2024 9:37 AM EDT [facility] Patient Name: Giovanny Jiménez Procedure Date: 12/27/2024 9:26 AM Date [...] scope was passed under direct vision. Throughout the procedure, the patient's blood pressure, pulse, and oxygen saturations were monitored continuously.The Olympus Pediatric Colonoscope was introduced through the anus and advanced to the terminal ileum. The colonoscopy was performed without difficulty. The patient tolerated the procedure well. The quality of the bowel preparation was excellent. Findings: The perianal and digital rectal examinations were normal. The terminal ileum appeared normal. Internal hemorrhoids were found during retroflexion. The hemorrhoids were Grade I (internal hemorrhoids that do not prolapse). The entire examined colon appeared normal. Procedure Code(s): --- Professional --- G0121, Colorectal cancer screening; colonoscopy on individual not meeting criteria for high risk Diagnosis Code(s): --- Professional --- Z12.11, Encounter for screening for malignant neoplasm of colon K64.0, First degree hemorrhoids CPT copyright 2020 [employer]. All rights reserved. The codes documented in this report are preliminary and upon braille coder review may be revised to meet current compliance requirements. Marianna Lorenzo MD 12/27/2024 9:37:10 AM This report has been signed electronically.Marianna Lorenzo MD Number of Addenda: 0 Note Initiated On: 12/27/2024 9:26 AM Scope In: Scope Out: Endoscopy Department at [facility] - [address] [place] [id number] Procedure Note Marianna Lorenzo MD - 12/27/2024 [facility] Patient Name: Giovanny Jiménez Procedure Date: 12/27/2024 9:26 AM Date [...] colon K64.0, First degree hemorrhoids CPT copyright 2021 [employer]. All rights reserved. The codes documented in this report are preliminary and upon braille coder reviewmay be revised to meet current compliance requirements. Marianna Lorenzo MD 12/27/2024 9:37:10 AM This report has been signed electronically.Marianna Lorenzo MD Number of Addenda: 0 Note Initiated On: 12/27/2024 9:26 AM Scope In: Scope Out: Endoscopy Department at [facility] - [address] [place] [phone] IMPRESSION: - The examined portion of the ileum was normal. - Internal hemorrhoids. - The entire examined colon is normal. - No specimens collected. Recommendation: - Repeat colonoscopy in 10 years for screening purposes. us Marianna Lorenzo MD GI~PROCEDURE ORDERABLES Final Result * [facility]ammo Digital Diagnostic w Jamey [...] recommendations were conveyed to the patient via senior cytogenetic technologist. BREAST DENSITY: B - There are scattered areas of fibroglandular density. BI-RADS CATEGORY: 2 - BENIGN RECOMMENDATION: Mammography: Screening bilateral mammogram is recommended in 1 year. Ultrasound: Screening bilateral mammogram is recommended in 1 year. Mammo Location: [facility], [address] [place] [address], [id number], . -------- FINAL REPORT -------- Dictated By: Merlyn Berry Dictated Date: 11/30/2024 15:21 ET Assigned Physician: Merlyn Berry Reviewed and Electronically Signed By: Merlyn Berry Signed Date: 11/30/2024 15:58 ET Workstation ID: [id number] Transcribed By: Self Edit Transcribed Date: 11/30/2024 [...] and read in conjunction with computer-aided detection. Tomosynthesis as well as 2-D C view imaging were obtained. COMPARISON: Comparison made to multiple prior mammograms, most recent November 16, 2023, and most remote September 08, 2018. Prior ultrasound studies on November 16, 2023; November [...] location of the previously described sonographic finding. The survey shows a 0.5 x 0.3 x 0.5 cm cluster of cysts or septated cyst at 1 o'clock position at 6 cm from the nipple. No internal vascularity demonstrated with color Doppler evaluation. The content of the cysts is anechoic. Prior measurements of 0.5 x 0.4 x 0.3 cm on May 24, 2024 and 0.5 x 0.2 x 0.5 cm on November 24, 2023. At this point, no dedicated ultrasound follow-up is [...] is recommended in 1 year. Mammo Location: [facility], [address] [place] [address], [phone], . -------- FINAL REPORT -------- Dictated By: Merlyn Berry Dictated Date: 11/30/2024 15:21 ET Assigned Physician: Merlyn Berry Reviewed and Electronically Signed By: Merlyn Berry Signed Date: 11/30/2024 15:58 ET Workstation ID: [id number] Transcribed By: Self Edit Transcribed Date: 11/30/2024 15:38 ET Fahad Amaral MD IMG BI PROCEDURES Final Res ult * Hepatitis C antibody (11/02/2024 1:33 PM EST) [facility] Hepatitis C Antibody Negative Negative LAB CHEMISTRY METHOD 11/02/2024 5:19 PM EST [facility] Blood Venous blood specimen / Unknown Venipuncture / Unknown 11/02/2024 1:33 PM EST 11/02/2024 1:33 PM EST Fabio MENDOZA LAB BLOOD ORDERABLES Maria Luisa l Result [facility] [address] [place] [address], [place] [phone] * (ABNORMAL) Lipid panel with reflex to direct LDL (11/02/2024 1:33 PM EST) [facility] Cholesterol 215(H) 0 - 200 mg/dL LAB CHEMISTRY METHOD 11/02/2024 4:55 PM EST [facility] Triglycerides 187(H) 0 - 150 mg/dL LAB CHEMISTRY METHOD 11/02/2024 4:55 PM [facility] HDL 63 >=40 mg/dL LAB CHEMISTRY METHOD 11/02/2024 4:55 PM [facility] LDL Calculated 115(H) 0 - 100 mg/dL LAB CHEMISTRY METHOD 11/02/2024 4:55 PM [facility] VLDL Cholesterol Jono 37.4 mg/dL LAB CHEMISTRY METHOD 11/02/2024 4:55 PM EST [facility] Non HDL Chol. (LDL+VLDL) 152(H) <145 mg/dL LAB CHEMISTRY METHOD 11/02/2024 4:55 PM EST [facility] Chol/HDL Ratio 3.4 0.0 - 4.4 LAB CHEMISTRY METHOD 11/02/2024 4:55 PM EST [facility] Blood Venous blood specimen / Unknown Venipuncture / Unknown 11/02/2024 1:33 PM EST 11/02/2024 1:33 PM EST Fabio MENDOZA LAB BLOOD ORDERABLES Maria Luisa l Result [facility] [address] [place] [address], [place] [phone] * Microalbumin creatinine urine ratio (11/02/2024 1:33 PM EST) Creatinine, Urine 99.0 mg/dL LAB CHEMISTRY METHOD 11/02/2024 4:55 PM [facility] Microalb, Ur 7.0 0.0 - 29.0 mg/L LAB CHEMISTRY METHOD 11/02/2024 4:55 PM EST [facility] Microalb/Creat Ratio 7 <30 mg/g creat LAB CHEMISTRY METHOD 11/02/2024 4:55 PM EST [facility] Urine Urine specimen obtained by clean catch procedure / Unknown Non-blood Collection / Unknown 11/02/2024 1:33 PM EST 11/02/2024 1:33 PM EST Fabio MENDOZA LAB URINE ORDERABLES Maria Luisa l Result [facility] [address] [place] [address], [place] [phone] * Hemoglobin A1c (11/02/2024 1:33 PM EST) Hemoglobin A1C 5.8 <6.5 % LAB CHEMISTRY METHOD 11/02/2024 8:28 PM EST [facility] Mean Bld Glu Estim. 120 mg/dL LAB CHEMISTRY METHOD 11/02/2024 8:28 PM EST [facility] Blood Venous blood specimen / Unknown Venipuncture / Unknown 11/02/2024 1:33 PM EST 11/02/2024 1:33 PM EST Fabio MENDOZA LAB BLOOD ORDERABLES Maria Luisa fay Result [facility] [address] [place] [address], from Last 3 Months or Most Recently Relevant to Health Maintenance Insurance [employer] Care Teams Restaurant Assistant Relationship Specialty Start Date End Date Fabio Moe PA [address] [place] [id number] PCP - General Internal Medicine 04/23/20
--- OUTSIDE RECORDS SUMMARY | 2025-07-29 10:48 | XMS_ITS ---
Author Name [facility] Organization Unknown History of Medication Use Medication Directions Dispensed Refills Start Date End Date Stat diclofenac (VOLTAREN) 1 % topical gel APPLY 2 GRAM TOPICALLY TO AFFECTED JOINT 4 TIMES A DAY 06/12/2025 active morphine (MS CONTIN) 15 mg 12 hr tablet Take 1 tablet (15 mg total) by mouth every 12 (twelve) hours. Do not crush, chew, or split. Max Daily Amount: 30 mg 06/12/2025 active oxyCODONE (ROXICODONE) 5 mg immediate release tablet Take 1 tablet (5 mg total) by mouth every 8 (eight) hours if needed for severe pain. Max Daily Amount: 15 mg 06/12/2025 active atorvastatin (LIPITOR) 20 mg tablet TAKE 1 TABLET BY MOUTH EVERY DAY 06/08/2025 active DULoxetine (CYMBALTA) [address] capsule TAKE 1 CAPSULE BY MOUTH EVERY DAY 06/06/2025 active tirzepatide, weight loss, (Zepbound) 7.5 mg/0.5 mL injection Inject 0.5 mL (7.5 mg total) under the skin every 7 (seven) days for 28 days. 06/06/2025 active loratadine (CLARITIN) 10 mg tablet TAKE 1 TABLET BY MOUTH EVERY DAY 05/31/2025 active clotrimazole-betametha sone (LOTRISONE) 1-0.05 % cream APPLY TO AFFECTED AREA TWICE A DAY FOR 7 DAYS 05/30/2025 active lidocaine (LIDODERM) 5 % patch Apply 1 patch topically 1 (one) time each day. Apply to painful area 12 hours per day, remove for 12 hours. 05/30/2025 active propranolol LA (Inderal LA) 60 mg 24 hr capsule Take 1 capsule (60 mg total) by mouth 1 (one) time each day. Do not crush, chew, or split. 05/25/2025 active acetaminophen (TYLENOL) 500 mg tablet TAKE 1 TABLET BY MOUTH EVERY 6 HOURS NEEDED FOR PAIN. 05/24/2025 active ondansetron ODT (ZOFRAN-ODT) 8 mg disintegrating tablet DISSOLVE 1 TABLET (8 MG TOTAL) ON TOP OF THE TONGUE EVERY 8 HOURS NEEDED FOR NAUSEA AND VOMITING 05/12/2025 active traZODone (DESYREL) 50 mg tablet TAKE 1 TO 3 TABLET BY MOUTH AT BEDTIME NEEDED FOR SLEEP 05/05/2025 active amitriptyline (ELAVIL) 10 mg tablet TAKE 1 TABLET BY MOUTH EVERYDAY AT BEDTIME 04/11/2025 active fluconazole (DIFLUCAN) 150 mg tablet PLEASE SEE ATTACHED FOR DETAILED DIRECTIONS 03/25/2025 active tiZANidine (ZANAFLEX) 2 mg tablet PLEASE SEE ATTACHED FOR DETAILED DIRECTIONS 03/13/2025 active montelukast (SINGULAIR) 10 mg tablet TAKE 1 TABLET BY MOUTH EVERYDAY AT BEDTIME 02/20/2025 active omeprazole (PriLOSEC) [address] capsule TAKE 1 CAPSULE BY MOUTH TWICE A DAY 02/09/2025 active triamcinolone (KENALOG) 0.1 % cream APPLY TO AFFECTED AREAS ONE OR TWO TIMES PER DAY FOR TWO TO FOUR WEEKS 02/09/2025 active fluticasone propionate (FLONASE) 50 mcg/actuation nasal spray Administer 2 sprays into each nostril 1 (one) time each day. Shake gently. Before first use, prime pump. After use, clean tip and replace cap. 12/07/2024 active Vitamin D3 25 mcg (1,000 unit) tablet TAKE 1 TABLET BY MOUTH EVERY DAY 11/01/2024 active Advair HFA 230-21 mcg/actuation inhaler TAKE 1 PUFF BY MOUTH TWICE A DAY 10/19/2024 active ferrous sulfate 325 mg (65 mg elemental iron) tablet TAKE 1 TABLET BY MOUTH TWICE A DAY 10/04/2024 active nystatin-triamcinolone (MYCOLOG II) ointment 2x/day to affected area as needed for itching for up to 14 days 09/19/2024 active sertraline (ZOLOFT) 100 mg tablet TAKE 1 TABLET BY MOUTH EVERY DAY 12/04/2022 active albuterol sulfate 90 mcg/actuation aerosol powdr breath activated Inhale 2 puffs into the lungs continuous prn. active Breo Ellipta 200-25 mcg/dose inhaler Inhale 1 puff by mouth 1 (one) time each day. active fluticasone furoate (ARNUITY ELLIPTA) 200 mcg/actuation blister with device inhaler Inhale 220 mcg into the lungs 2 (two) times a day. active Problems Problem Status Onset Date Problem Type Date of Resoluti on Source Anxiety and depression active 2020-11-22 ProblemAct [facility] Other insomnia active 2018-12-16 ProblemAct [facility] Cervical disc herniation active 2019-12-09 ProblemAct [facility] Inguinal adenopathy active 2018-12-31 ProblemAct [facility] Abnormal chest x-ray active 2019-03-03 ProblemAct [facility] Vitamin D deficiency active 2019-07-20 ProblemAct [facility] Lumbar spondylosis active 2025-05-30 ProblemAct [facility] Cervical disc disease active 2019-12-09 ProblemAct [facility] Acute non-recurrent frontal sinusitis active 2019-02-24 ProblemAct [facility] Memory loss active 2018-12-16 ProblemAct [facility]S CHALINO Diabetes mellitus type 2, uncomplicated (CMS/HCC V24, CMS/HCC V28) active 2018-10-25 ProblemAct [facility] Overweight (BMI 25.0-29.9) active 2022-06-13 ProblemAct [facility] Palpitations active 2022-10-28 ProblemAct [facility] SFRAN Abscess, gluteal, left active 2018-12-24 ProblemAct [facility] Pain of upper abdomen active 2018-10-27 ProblemAct [facility] Other fatigue active 2018-12-16 ProblemAct [facility]_T HSFRAN Mild ascending aorta dilation (CMS/HCC V24) active 2023-12-28 ProblemAct [facility] SFRAN Lymphadenopathy active 2018-10-[address] [facility]THS[facility]AN Gastroesophageal reflux disease with esophagitis active 2018-10-12 ProblemAct [facility]_ THS[facility] Mass of upper outer quadrant of left breast active 2023-10-26 ProblemAct [facility]T HSFRAN Gallbladder polyp active 2015-12-17 ProblemAct [facility] Class 2 severe obesity due to excess calories with serious comorbidity and body mass index (BMI) of 36.0 to 36.9 in adult ([facility] V24, [facility] V28) active 2025-03-02 ProblemAct [facility] Trochanteric bursitis of both hips active 2024-02-02 ProblemAct [facility] Night sweats active 2018-10-12 ProblemAct [facility] SFRAN Hodgkin lymphoma ([facility] V24, [facility] V28) active 2018-10-20 ProblemAct [facility] 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 ([facility] V24, [facility] V28) active 2018-10-20 ProblemAct [facility]AN Asthma active 2013-11-14 ProblemAct [facility]THSFR AN Nausea active 2018-10-27 ProblemAct [facility]SFR AN Cellulitis active 2019-04-22 ProblemAct [facility]_THSF RAN Acute nonintractable headache active 2021-09-05 ProblemAct [facility] Recurrent vaginitis active 2023-10-26 ProblemAct [facility] MRSA carrier active 2018-12-31 ProblemAct [facility] SFRAN Neck pain active 2020-02-10 ProblemAct [facility]THSFR AN Hyperlipidemia active 2017-08-09 ProblemAct [facility]_ THS[facility]AN TIA (transient ischemic attack) active 2022-10-28 ProblemAct [facility] Functional dyspepsia active 2018-06-01 ProblemAct [facility]AN Chemotherapy-induced neuropathy ([facility]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) active 2024-11-02 ProblemAct [facility]_ THSFRAN Lichen simplex chronicus active 2012-12-09 ProblemAct [facility] History of laparoscopic partial gastrectomy active 2021-03-06 ProblemAct [facility]THSFR AN PATRICK (obstructive sleep apnea) active 2011-12-09 ProblemAct [facility] Weight loss active 2021-09-05 ProblemAct [facility]S CHALINO Anemia in neoplastic disease active 2018-10-27 ProblemAct [facility]_THS[facility]AN Hepatomegaly active 2015-12-17 ProblemAct [facility] SFRAN Fibromyalgia active 2024-02-02 ProblemAct [facility] SFRAN Iron deficiency anemia due to chronic blood loss active 2018-10-[address] _THSFRAN Cough active 2019-03-02 ProblemAct [facility]_THS AN Intractable pain active 2023-09-01 ProblemAct C T_SCHALINO Immunizations Vaccine Date Source Lot Number Status Influenza trivalent, MDCK, 0 .5mL, preservative free (Flucelvax) 6mo and older 06/06/2025 CT_CrystalFRAN [id number] completed Influenza trivalent, 0.5mL, preservative free (Fluarix; FluLaval; Fluzone) ages 6mo and older (Afluria) 3 years and older 08/03/2024 CT_SFRAN [id number] completed Influenza, Unspecified 07/07/2022 CT_SFRNOÉ co mpleted Influenza, Unspecified 07/09/2021 CT_SFRNOÉ co mpleted Pfizer SARS-CoV-2 COVID-19, mRNA, LNP-S, preservative free 07/09/2021 CT_CrystalFRNOÉ [id number] completed Influenza trivalent, 0.5mL, preservative free (Fluarix; FluLaval; Fluzone) ages 6mo and older (Afluria) 3 years and older 06/25/2021 CT_EMMANUEL [id number] completed HPV 9-valent (Gardisil) 9yo to less than 46yo 05/02/2021 [id number] completed HPV 9-valent (Gardisil) 9yo to less than 46yo 12/26/2020 [facility] [id number] completed Minka SARS-CoV-2 COVID-19, mRNA, LNP-S, preservative free 11/28/2020 [facility] [id number] completed Minka SARS-CoV-2 COVID-19, mRNA, LNP-S, preservative free 11/07/2020 CT_SFRNOÉ [id number] completed Influenza trivalent, 0.5mL, preservative free (Fluarix; FluLaval; Fluzone) ages 6mo and older (Afluria) 3 years and older 08/05/2020 CT_SFRAN completed HPV 9-valent (Gardisil) 9yo to less than 46yo 06/27/2020 [id number] completed Td Tetanus diptheria (Tdvax) 7yo and older 07/26/2018 CT_T SHRUTIRAN [id number] completed PPD Test 05/14/2016 CT_SFRNOÉ [id number] completed PPD Test 06/13/2015 CT_SFRNOÉ [id number] completed MMR, measles mumps and rubel la Live (Priorix; M-M-R II) 12mo and older 05/27/2014 CT_SFRNOÉ [id number] completed Varicella live (Varivax) 12mo and older 05/27/2014 [facility] [id number] completed Hepatitis B (Ffunesl-I-Owjqi , Recombivax HB-Adult) 19yo and older 05/24/2014 CT_SFRNOÉ [id number] complet ed Pneumococcal polysaccharide 23 valent (Pneumovax 23) 2yo and older 11/14/2013 CT_SFRNOÉ [id number] com pleted Influenza trivalent, 0.5mL, preservative free (Fluarix; FluLaval; Fluzone) ages 6mo and older (Afluria) 3 years and older 07/16/2011 CT_SFRAN completed H1N1 Inj Preservative Free 07/31/2009 CT_SFRNOÉ [id number] completed Hepatitis B (Ewcykta-O-Mntkq , Recombivax HB-Adult) 19yo and older 12/16/2007 CT_SFRNOÉ [id number] complet ed Tdap Tetanus diptheria acell ular pertussis (Boostrix; Adacel) 7yo and older 12/16/2007 CT_SFRNOÉ [id number] completed Encounters Encounter Type Encounter Reason Primary Diagnosis Location Date Ambulatory [facility] 07/15/2024 Care Team Organization Name Specialty Phone Email Start Date End [facility]
--- OUTSIDE RECORDS SUMMARY | 2025-07-29 10:48 | XMS_ITS | Clinical Summary ---
Author Organization [facility] Address [address] [place] [address] Care Team Providers Care Food And Beverage Director Name Role Phone Fabio Moe Primary Care Provider [phone] Allergies No known active allergies Medications acetaminophen [...] propionate (FLONASE) 50 mcg/actuation nasal spray SMARTSI [place](s) Both Nares Daily Active gabapentin (NEURONTIN) 400 [...] with significant TTP at b/l greater trochanters. CHARLES/DANIEIR neg b/l. Discussed risks and benefits of [...] 78 02/02/2024 9:24 AM EDT Temperature 37.1 C (98.8 F) 02/02/2024 9:24 AM EDT Respiratory Rate - - Oxygen Saturation - [...] Cancer Screening 06/27/2023 Pap Smear 06/27/2023 06/27/2020 Alcohol/Substance Use Screening 10/05/2024 Depression Screening and Follow-Up 10/05/2024 Social Drivers of Health Annual Screening 10/05/2024 COVID-19 Vaccine ( season) 2025 07/09/2021, 11/28/2020, 11/07/2020 Influenza Vaccine (#1) 2025 , 06/25/2021, 08/05/2020, Additional history exists DTaP,Tdap,and Td Vaccines (3 - Td or Tdap) 07/26/2028 07/26/2018, 12/16/2007 RSV Vaccine (60+ years old and patients) (1 - 1-dose 75+ series) 2053 Pneumococcal Vaccine: Pediatric (0-5 Years) and At-Risk Patients (6-50 Years) Aged Out 11/14/2013 No longer eligible based on patient's age to complete this topic Insurance [employer] Care Teams Food And Beverage Director Relationship Specialty Start Date End Date Fabio Moe PCP - General Internal Medicine 01/18/24
[2025-07-29 10:53] LABS: COVID-19 Test Negative (Negative); IDNOW Serial# 55D5AD1C; IDNOW Serial# 58CA691E; Influenza B2 Negative (Negative); Troponin-I High Sensitivity 4.6 ng/L (<3.5-17.0)
[2025-07-29] MEDS: iohexoL 350 MG/ML 100 ML INFUS..BTL IV (11:00)
[2025-07-29] MEDS: diazePAM 10 MG/2 ML CARTRIDGE 2.5 MG IVPUSH (11:25)
--- NOTE | 2025-07-29 11:31 | PC.NURSE ---
patient a&ox3, iv inserted, labs previously drawn, pt ekg performed, ct scan performed, pt c/o dizziness, nausea and lt sided chest pain- medicated per order, family at bedside, call ty within reach, plan of care ongoing.
[2025-07-29 12:26] VITALS: BP 157/76; PULSE 83; RESP 30; TEMP 36.6; O2SAT 98
[2025-07-29] MEDS: Magnesium Hydrox/Alum Hydrox 30 ML ORAL.SUSP 15 ML PO (13:14)
[2025-07-29 13:53] LABS: Troponin-I High Sensitivity < 2.7 ng/L (<3.5-17.0)
--- NOTE | 2025-07-29 14:08 | ECG_ITS ---
Test Reason : chest pain Blood Pressure : */* mmHG Vent. Rate : 93 BPM Atrial Rate : 93 BPM P-R Int : 154 ms QRS Dur : 82 ms QT Int : 356 ms P-R-T Axes : 56 -8 59 degrees QTcB Int : 442 ms Normal sinus rhythm Possible Left atrial enlargement Nonspecific ST and T wave abnormality Abnormal ECG When compared with ECG of 11-Nov-2019 08:16, Questionable change in QRS axis T wave inversion now evident in Anterior leads Referred By: Gerda Alegria Electronically Signed By: PRETTY HENSON MD
[2025-07-29 14:12] VITALS: BP 136/66; PULSE 83; RESP 17; TEMP 36.6; O2SAT 97
== END 2025-07-29 14:16 | disposition home or self-care (01) ==
PROVIDERS: Physician Assistant Medical; Emergency Provider Emergency Medicine Emergency Medical Services
DX: R07.89 Other chest pain (principal); R53.1 Weakness; R11.0 Nausea; R42 Dizziness and giddiness; R06.02 Shortness of breath; E11.9 Type 2 diabetes mellitus without complications; K21.9 Gastro-esophageal reflux disease without esophagitis; Z03.818 Encounter for observation for suspected exposure to other biological agents ruled out; Z79.899 Other long term (current) drug therapy; Z85.72 Personal history of non-Hodgkin lymphomas
CPT/HCPCS: 36415; 70450; 71045; 71275; 74174; 80053; 84484; 85025; 87502; 87635; 93005; 96374; 96375; 99285; J1171; J1885; J2270; J2405; J2470; J3360; Q9967

== ENCOUNTER → 2025-07-29 10:09 | Outpatient (BNV) | payer OTHER, SELFPAY | PROVIDERS: Visit Provider Radiology Diagnostic Radiology | DX: R07.9 Chest pain, unspecified (principal); R53.1 Weakness; R06.02 Shortness of breath | CPT/HCPCS: 70450; 71045; 71275; 74174 ==

== ENCOUNTER → 2025-07-29 14:08 | Outpatient (BNV) | payer OTHER, SELFPAY | PROVIDERS: Emergency Provider Emergency Medicine Emergency Medical Services; Visit Provider Internal Medicine Cardiovascular Disease | DX: R94.31 Abnormal electrocardiogram [ECG] [EKG] (principal); R07.9 Chest pain, unspecified | CPT/HCPCS: 93010 ==